=== PATIENT | female | born 1975 | race African-American/Black ===

== ENCOUNTER 2017-02-12 02:57 | Emergency (ER) | payer OTHER ==
[2017-02-12 03:04] VITALS: TEMP 97.4
[2017-02-12] MEDS ORDERED: cloNIDine HCL 0.1 MG TAB PO STA (03:06)
[2017-02-12] MEDS ORDERED: SODIUM CHLORIDE 0.9% 1,000 ML IV STA (03:07)
[2017-02-12] MEDS ORDERED: METOCLOPRAMIDE 5 MG/ML 2 ML VIAL IVP STA (03:07)
[2017-02-12] MEDS ORDERED: KETOROLAC 30 MG/ML 1 ML VIAL IVP STA (03:07)
[2017-02-12] MEDS ORDERED: diphenhydrAMINE 50 MG/ML 1 ML VIAL IVP STA (03:07)
[2017-02-12 03:29] LABS: Basophils % (A) 0 %; CH 29.6; CHCM 33.7; Eosinophils # (A) 0.3 k/uL (0-0.7); Eosinophils % (A) 2 %; HCT 44.4 % (34.0-46.0); HDW 2.42; HGB 14.7 gm/dL (11.4-16.0); Luc # (Auto) 0.22; Luc % (Auto) 2; Lymphocytes # (A) 4.6 k/uL (1.0-4.8); Lymphocytes % (A) 37 %; MCH 29.3 pg (25.0-35.0); MCHC 33.2 g/dL (31.0-37.0); MCV 88.1 fL (80.0-100.0); Mean Platelet Volume 7.6; Monocytes # (A) 0.4 k/uL (0-1.0); Monocytes % (A) 4 %; Neutrophils % (A) 56 %; RBC 5.03 m/uL (3.80-5.40); RDW 13.1 % (11.5-15.5); WBC 12.5 k/uL (3.8-10.6); WBC (Perox) 12.73
[2017-02-12 03:39] LABS: Anion Gap 11 mmol/L; Blood Urea Nitrogen 9 mg/dL (7-17); Calcium 9.3 mg/dL (8.4-10.2); Carbon Dioxide 23 mmol/L (22-30); Chloride 106 mmol/L (98-107); Glucose 96 mg/dL (74-99); Non-African American GFR(MDRD) >60 (>60 ml/min/1.73 sqM); Potassium 3.6 mmol/L (3.5-5.1); Sodium 140 mmol/L (137-145)
--- NOTE | 2017-02-12 03:43 | CT ---
EXAM: CT Head Without Intravenous Contrast CLINICAL HISTORY: Pain TECHNIQUE: Axial computed tomography images of the head/brain without intravenous contrast. CTDI is 60.3 mGy and DLP is 1126.5 mGy-cm. This CT exam was performed using one or more of the following dose reduction techniques: automated exposure control, adjustment of the mA and/or kV according to patient size, and/or use of iterative reconstruction technique. COMPARISON: CT head dated 06/06/2015 FINDINGS: Brain: No evidence of acute infarct, hemorrhage, mass or edema. No significant white matter disease. Ventricles: Unremarkable. Bones/joints: Unremarkable. Soft tissues: Unremarkable. Sinuses: Mild mucosal thickening of the paranasal sinuses. Mastoid air cells: Unremarkable as visualized. No mastoid effusion. IMPRESSION: No acute findings.
--- NOTE | 2017-02-12 03:43 | ED ---
Headache HPI - General Chief Complaint: Headache Stated Complaint: Headache Time Seen by Provider: 02/12/17 03:06 Source: RN notes reviewed, old records reviewed Mode of arrival: ambulatory Limitations: no limitations - History of Present Illness Initial Comments: Is a 41-year-old female presenting to emergency Department chief complaint of a headache. Patient reports that the going on for the past 3-4 hours. She reports she has not taken anything to help. She denies any vomiting but reports she feels nauseated. She states that she is having some blurry vision with this headache. She has emergency department with an elevated blood pressure of 209/112. Patient states that she was diagnosed with high blood pressure but was so she didn't need to take the medications for the past year as her blood pressure has been relatively normal. Patient denies any chest pain , shortness of breath, abdominal pain, dysuria hematuria or changes in bowel movements. Patient reports her headaches a 10 out of 10. Patient reports the headache becomes worse with bright lights or loud noises. - Related Data Previous Rx's Medication Instructions Recorded Lisinopril [Prinivil] 10 mg PO DAILY #10 tablet 02/12/17 Allergies Allergy/AdvReac Type Severity Reaction Status Date / Time No Known Allergies Allergy Verified 12/31/15 10:07 Review of Systems ROS Statement: Those systems with pertinent positive or pertinent negative responses have been documented in the HPI. ROS Other: All systems not noted in ROS Statement are negative. Past Medical History Past Medical History: Asthma, CVA/TIA, Hyperlipidemia, Hypertension Additional Past Medical History / Comment(s): Kidney stones, small stroke 2011, History of Any Multi-Drug Resistant Organisms: MRSA Date of last positivie culture/infection: 12/11/2008 MDRO Source:: Abd wall wound Past Surgical History: Section, Cholecystectomy, Hysterectomy Additional Past Surgical History / Comment(s): Kidney stent 16 yrs ago on left due to kidney stone, incision and drainage of abscess on abdomen on left side MRSA Past Anesthesia/Blood Transfusion Reactions: No Reported Reaction Past Psychological History: Anxiety, Depression Smoking Status: Current some day smoker Past Alcohol Use History: None Reported Past Drug Use History: None Reported - Past Family History Mother Family Medical History: Cancer, COPD, Diabetes Mellitus General Exam - General Exam Comments Initial Comments: This is a ill-appearing 41-year-old female. Limitations: no limitations General appearance: alert, in no apparent distress Head exam: Present: atraumatic, normocephalic, normal inspection Eye exam: Present: normal appearance, PERRL, EOMI. Absent: scleral icterus, conjunctival injection, periorbital swelling ENT exam: Present: normal exam, mucous membranes moist Neck exam: Present: normal inspection. Absent: tenderness, meningismus, lymphadenopathy Respiratory exam: Present: normal lung sounds bilaterally. Absent: respiratory distress, wheezes, rales, rhonchi, stridor Cardiovascular Exam: Present: regular rate, normal rhythm, normal heart sounds. Absent: systolic murmur, diastolic murmur, rubs, gallop, clicks GI/Abdominal exam: Present: soft, normal bowel sounds. Absent: distended, tenderness, guarding, rebound, rigid Extremities exam: Present: normal inspection, full ROM, normal capillary refill. Absent: tenderness, pedal edema, joint swelling, calf tenderness Back exam: Present: normal inspection Neurological exam: Present: alert, oriented X3, CN II-XII intact Expanded Patient oriented to: Present: person, place, time Speech: Present: fluid speech Cranial nerves: EOM's Intact: Normal, Gag Reflex: Normal, Facial Sensation: Normal Cerebellar function: Finger to Nose: Normal Upper motor neuron: Pronator Drift: Normal Sensory exam: Upper Extremity Light Touch: Normal, Lower Extremity Light Touch: Normal Motor strength exam: RUE: 5, LUE: 5, RLE: 5, LLE: 5 Eye Response: (4) open spontaneously Motor Response: (6) obeys commands Verbal Response: (5) oriented Rob Total: 15 Psychiatric exam: Present: normal affect, normal mood Skin exam: Present: warm, dry, intact, normal color. Absent: rash Course Vital Signs 02/12/17 02/12/17 02/12/17 03:01 03:03 04:03 Temperature 97.4 F L Pulse Rate 81 72 Respiratory 18 78 H 20 Rate Blood Pressure 209/112 192/105 177/90 O2 Sat by Pulse 100 99 97 Oximetry 02/12/17 04:29 Temperature Pulse Rate 74 Respiratory 20 Rate Blood Pressure 170/95 O2 Sat by Pulse 97 Oximetry - Reevaluation(s) Reevaluation #1: 02/12/17 04:21 Patient is reevaluated blood pressure 177/90. Patient reports that she feels much better. Her headaches a 5 out of 10. Medical Decision Making - Medical Decision Making Is a 41-year-old female with chief complaint of headache for the past 4 hours. She reports it's a 10 out of 10. She also reports that she has some blurry vision, and states that she sees areas of black in her vision. Patient's blood pressure was elevated upon arriving to emergency department of 202/112. Patient given 2 mg of Catapres. Patient received IV fluids labwork obtained. CT brain also obtained. All lab work was negative. CT was also negative for any acute process. Patient is feeling much better after 2 g of Catapres and the medications. She reports her headaches a 5 out of 10. Patient reports that she previously was on lisinopril. Patient will be discharged with lisinopril 10 mg and advised follow-up as discussed with the primary care provider. Patient advised to take Motrin or Tylenol for further headaches. In again close follow-up with primary care provider. Return parameters were discussed. Discussed this case with Dr. Henderson. - Lab Data Result diagrams: 02/12/17 03:07 02/12/17 03:07 Lab Results 02/12/17 02/12/17 Range/Units 03:07 03:07 WBC 12.5 H (3.8-10.6) k/uL RBC 5.03 (3.80-5.40) m/uL Hgb 14.7 (11.4-16.0) gm/dL Hct 44.4 (34.0-46.0) % MCV 88.1 (80.0-100.0) fL MCH 29.3 (25.0-35.0) pg MCHC 33.2 (31.0-37.0) g/dL RDW 13.1 (11.5-15.5) % Plt Count 218 (150-450) k/uL Neutrophils % 56 % Lymphocytes % 37 % Monocytes % 4 % Eosinophils % 2 % Basophils % 0 % Neutrophils # 7.0 (1.3-7.7) k/uL Lymphocytes # 4.6 (1.0-4.8) k/uL Monocytes # 0.4 (0-1.0) k/uL Eosinophils # 0.3 (0-0.7) k/uL Basophils # 0.0 (0-0.2) k/uL Sodium 140 (137-145) mmol/L Potassium 3.6 (3.5-5.1) mmol/L Chloride 106 (98-107) mmol/L Carbon Dioxide 23 (22-30) mmol/L Anion Gap 11 mmol/L BUN 9 (7-17) mg/dL Creatinine 0.80 (0.52-1.04) mg/dL Est GFR (MDRD) Af Amer >60 (>60 ml/min/1.73 sqM) Est GFR (MDRD) Non-Af >60 (>60 ml/min/1.73 sqM) Glucose 96 (74-99) mg/dL Calcium 9.3 (8.4-10.2) mg/dL - Radiology Data Radiology results: report reviewed Age is no evidence of acute infarct, hemorrhage or mass or edema. No significant white matter disease. Mild mucosal thickening appear in nasal sinuses. Mastoid air shows are unremarkable as this was. No mastoid effusion. Disposition Clinical Impression: Migraine, Hypertension Disposition: HOME SELF-CARE Condition: Good Instructions: Acute Headache (ED), Hypertension (ED) Additional Instructions: Patient advised to rest, increase fluids. Continue taking Motrin or Tylenol for headache. Patient denies a take blood pressure medication as prescribed and follow-up as soon as possible with a primary care provider. Return to emergency department if any alarming signs or symptoms occur. Prescriptions: Lisinopril [Prinivil] 10 mg PO DAILY #10 tablet Referrals: Rashawn Monte MD [Primary Care Provider] - 1-2 days Time of Disposition: 04:22
[2017-02-12] MEDS ORDERED: SODIUM CHLORIDE 0.9% 1,000 ML IV SCH (04:15)
[2017-02-12 04:16] VITALS: RESP 20
[2017-02-12] MEDS ORDERED: ACETAMINOPHEN TAB 500 MG TAB PO STA (04:25)
[2017-02-12 04:30] VITALS: BP 170/95; PULSE 74
== END 2017-02-12 04:39 | disposition home or self-care (01) ==
LOC: EC 02:57
DX: G43.909 Migraine, unspecified, not intractable, without status migrainosus (principal); I10 Essential (primary) hypertension; J34.89 Other specified disorders of nose and nasal sinuses; F17.200 Nicotine dependence, unspecified, uncomplicated
CPT/HCPCS: 36415; 80048; 85025; 70450; 99284; 96374; 96375 ×2; 96361; J1200; J2765; J1885

== ENCOUNTER → 2017-05-29 | Outpatient (CLI) | payer OTHER ==
--- NOTE | 2017-05-29 12:54 | FL ---
EXAMINATION TYPE: FL UGI air w esophagus DATE OF EXAM: 05/29/2017 COMPARISON: CT abdomen pelvis December 30, 2015. HISTORY: Sharp abdominal pain over last 3 months. TECHNIQUE: A double contrast UGI study is attempted. A total of 36 seconds of fluoroscopic time was utilized during procedure. 28 spot images are saved during procedure. FINDINGS: Operator Receptionist image of the abdomen shows overall nonobstructive bowel gas pattern. Cholecystectomy clips are redemonstrated. Exam is noted suboptimal as patient had vomiting and retching during study making stomach distention suboptimal. The esophagus shows satisfactory motility and emptying into the stomach. A small sliding-type hiatal hernia is seen. No worrisome intraluminal mass or stricture is noted. The stomach shows suboptimal distention due to vomiting. No titus ulcer disease is seen. Single episo de of gastroesophageal reflux was visualized during real-time performance of study. The duodenal bulb, sweep, and proximal small bowel loops are unremarkable on delayed radiographs. IMPRESSION: Small sliding-type hiatal hernia with single episode of gastroesophageal reflux visualize d.
== END | disposition home or self-care (01) ==
LOC: RADFLMAIN 11:53
PROVIDERS: ATTEND Family Medicine
DX: K44.9 Diaphragmatic hernia without obstruction or gangrene (principal); K21.9 Gastro-esophageal reflux disease without esophagitis
CPT/HCPCS: 74246

== ENCOUNTER 2017-06-02 18:46 | Emergency (ER) | payer OTHER ==
[2017-06-02] MEDS ORDERED: ONDANSETRON 4 MG/2 ML VIAL IVP STA ×2 (20:34→21:55)
[2017-06-02] MEDS ORDERED: SODIUM CHLORIDE 0.9% 2,000 ML IV STA (20:34)
[2017-06-02] MEDS ORDERED: SODIUM CHLORIDE 0.9% 1,000 ML IV STA (20:34)
[2017-06-02] MEDS ORDERED: KETOROLAC 30 MG/ML 1 ML VIAL IVP STA (20:34)
--- NOTE | 2017-06-02 20:45 | ED ---
Nausea/Vomiting/Diarrhea HPI - General Chief complaint: Nausea/Vomiting/Diarrhea Stated complaint: Nausea/Numbness/Nerve Pain Time Seen by Provider: 06/02/17 20:20 Source: patient, RN notes reviewed Mode of arrival: ambulatory Limitations: no limitations - History of Present Illness Initial comments: This is a 42-year-old female who states she had the onset of nausea vomiting this morning at about 7 AM. She's had persistent nausea vomiting throughout the day also complains of lightheadedness dizziness she also has some pain to the right side of her neck rate down to the right low back area. She states she has chronic pain medicines worse today she also some tingling to her left arm later today. She states the discomfort to her neck is better than it was earlier today sharp in nature and increases with movement. Not affected by deep breathing. She had no cough or phlegm production no dysuria hematuria no diarrhea. Again she does admit to decreased oral intake today also MD complaint: nausea, vomiting - Related Data Home Medications Medication Instructions Recorded Confirmed Albuterol Inhaler [Ventolin Hfa 1 - 2 puff INHALATION RT-Q6H PRN 06/02/17 Inhaler] Aspirin 325 mg PO DAILY 06/02/17 06/02/17 Hydrochlorothiazide [Hydrodiuril] 25 mg PO DAILY 06/02/17 06/02/17 Lisinopril [Prinivil] 10 mg PO BID 06/02/17 06/02/17 Nicotine 21Mg/24Hr Patch [Habitrol 1 patch TRANSDERM DAILY 06/02/17 06/02/17 21Mg/24Hr Patch] Previous Rx's Medication Instructions Recorded Ibuprofen 800 mg PO Q6HR PRN #20 tablet 06/02/17 Ondansetron Odt [Zofran Odt] 4 mg PO Q8HR PRN #9 tab 06/02/17 Allergies Allergy/AdvReac Type Severity Reaction Status Date / Time No Known Allergies Allergy Verified 06/02/17 19:59 Review of Systems ROS Statement: Those systems with pertinent positive or pertinent negative responses have been documented in the HPI. ROS Other: All systems not noted in ROS Statement are negative. Past Medical History Past Medical History: Asthma, CVA/TIA, Hyperlipidemia, Hypertension Additional Past Medical History / Comment(s): Kidney stones, small stroke 2011, History of Any Multi-Drug Resistant Organisms: MRSA Date of last positivie culture/infection: 12/11/2008 MDRO Source:: Abd wall wound Past Surgical History: Section, Cholecystectomy, Hysterectomy Additional Past Surgical History / Comment(s): Kidney stent 16 yrs ago on left due to kidney stone, incision and drainage of abscess on abdomen on left side MRSA Past Anesthesia/Blood Transfusion Reactions: No Reported Reaction Past Psychological History: Anxiety, Depression Smoking Status: Current some day smoker Past Alcohol Use History: None Reported Past Drug Use History: None Reported - Past Family History Mother Family Medical History: Cancer, COPD, Diabetes Mellitus General Exam - General Exam Comments Initial Comments: This is a well-developed well-nourished awake alert oriented 3 female Limitations: no limitations General appearance: alert, anxious, in distress Head exam: Present: atraumatic, normocephalic, normal inspection Eye exam: Present: normal appearance, PERRL, EOMI. Absent: scleral icterus, conjunctival injection, periorbital swelling ENT exam: Present: mucous membranes dry Neck exam: Present: normal inspection, tenderness (Tenderness to palpation of the right lateral neck musculature and trapezius muscle. This does reproduce the pain. No midline tenderness.). Absent: meningismus, lymphadenopathy Respiratory exam: Present: normal lung sounds bilaterally. Absent: respiratory distress, wheezes, rales, rhonchi, stridor Cardiovascular Exam: Present: regular rate, normal rhythm, normal heart sounds. Absent: systolic murmur, diastolic murmur, rubs, gallop, clicks GI/Abdominal exam: Present: soft, normal bowel sounds. Absent: distended, tenderness, guarding, rebound, rigid, bruit, pulsatile mass, hernia Extremities exam: Present: normal inspection, full ROM, normal capillary refill. Absent: tenderness, pedal edema, joint swelling, calf tenderness Back exam: Present: normal inspection Neurological exam: Present: alert, oriented X3, CN II-XII intact Psychiatric exam: Present: normal affect, normal mood Skin exam: Present: warm, dry, intact, normal color. Absent: rash Course Vital Signs 06/02/17 06/02/17 19:07 22:08 Temperature 98.5 F Pulse Rate 82 85 Respiratory 20 18 Rate Blood Pressure 108/56 112/56 O2 Sat by Pulse 98 97 Oximetry Medical Decision Making - Medical Decision Making The patient initially still had nausea with vomiting and pain she was given more pain medication as well as antiemetics or IV fluids she did respond and felt much improved. She will be discharged. She is follow-up with Dr. singh when necessary did write a note for her for work tomorrow - Lab Data Result diagrams: 06/02/17 20:45 06/02/17 20:45 Lab Results 06/02/17 06/02/17 06/02/17 Range/Units 20:45 20:45 20:45 WBC 13.6 H (3.8-10.6) k/uL RBC 4.52 (3.80-5.40) m/uL Hgb 14.0 (11.4-16.0) gm/dL Hct 41.3 (34.0-46.0) % MCV 91.3 (80.0-100.0) fL MCH 30.9 (25.0-35.0) pg MCHC 33.9 (31.0-37.0) g/dL RDW 15.1 (11.5-15.5) % Plt Count 269 (150-450) k/uL Neutrophils % 57 % Lymphocytes % 35 % Monocytes % 4 % Eosinophils % 2 % Basophils % 1 % Neutrophils # 7.7 (1.3-7.7) k/uL Lymphocytes # 4.8 (1.0-4.8) k/uL Monocytes # 0.6 (0-1.0) k/uL Eosinophils # 0.2 (0-0.7) k/uL Basophils # 0.1 (0-0.2) k/uL Sodium 135 L (137-145) mmol/L Potassium 4.3 (3.5-5.1) mmol/L Chloride 100 (98-107) mmol/L Carbon Dioxide 21 L (22-30) mmol/L Anion Gap 14 mmol/L BUN 19 H (7-17) mg/dL Creatinine 1.68 H (0.52-1.04) mg/dL Est GFR (MDRD) Af Amer 40 (>60 ml/min/1.73 sqM) Est GFR (MDRD) Non-Af 33 (>60 ml/min/1.73 sqM) Glucose 106 H (74-99) mg/dL Calcium 9.8 (8.4-10.2) mg/dL Total Bilirubin 0.8 (0.2-1.3) mg/dL AST 32 (14-36) U/L ALT 31 (9-52) U/L Alkaline Phosphatase 69 (38-126) U/L Total Creatine Kinase 110 (30-135) U/L CK-MB (CK-2) 0.8 (0.0-2.4) ng/mL CK-MB (CK-2) Rel Index 0.7 Troponin I <0.012 (0.000-0.034) ng/mL Total Protein 7.7 (6.3-8.2) g/dL Albumin 4.6 (3.5-5.0) g/dL Amylase 38 (30-110) U/L Lipase 147 (23-300) U/L Urine Color Urine Appearance (Clear) Urine pH (5.0-8.0) Ur Specific [place] (1.001-1.035) Urine Protein (Negative) Urine Glucose (UA) (Negative) Urine Ketones (Negative) Urine Blood (Negative) Urine Nitrite (Negative) Urine Bilirubin (Negative) Urine Urobilinogen (<2.0) mg/dL Ur Leukocyte Esterase (Negative) Urine RBC (0-5) /hpf Urine WBC (0-5) /hpf Ur Squamous Epith Cells (0-4) /hpf Urine Bacteria (None) /hpf 06/02/17 Range/Units 20:45 WBC (3.8-10.6) k/uL RBC (3.80-5.40) m/uL Hgb (11.4-16.0) gm/dL Hct (34.0-46.0) % MCV (80.0-100.0) fL MCH (25.0-35.0) pg MCHC (31.0-37.0) g/dL RDW (11.5-15.5) % Plt Count (150-450) k/uL Neutrophils % % Lymphocytes % % Monocytes % % Eosinophils % % Basophils % % Neutrophils # (1.3-7.7) k/uL Lymphocytes # (1.0-4.8) k/uL Monocytes # (0-1.0) k/uL Eosinophils # (0-0.7) k/uL Basophils # (0-0.2) k/uL Sodium (137-145) mmol/L Potassium (3.5-5.1) mmol/L Chloride (98-107) mmol/L Carbon Dioxide (22-30) mmol/L Anion Gap mmol/L BUN (7-17) mg/dL Creatinine (0.52-1.04) mg/dL Est GFR (MDRD) Af Amer (>60 ml/min/1.73 sqM) Est GFR (MDRD) Non-Af (>60 ml/min/1.73 sqM) Glucose (74-99) mg/dL Calcium (8.4-10.2) mg/dL Total Bilirubin (0.2-1.3) mg/dL AST (14-36) U/L ALT (9-52) U/L Alkaline Phosphatase (38-126) U/L Total Creatine Kinase (30-135) U/L CK-MB (CK-2) (0.0-2.4) ng/mL CK-MB (CK-2) Rel Index Troponin I (0.000-0.034) ng/mL Total Protein (6.3-8.2) g/dL Albumin (3.5-5.0) g/dL Amylase (30-110) U/L Lipase (23-300) U/L Urine Color Light Yellow Urine Appearance Clear (Clear) Urine pH 5.5 (5.0-8.0) Ur Specific [place] 1.004 (1.001-1.035) Urine Protein Negative (Negative) Urine Glucose (UA) Negative (Negative) Urine Ketones Negative (Negative) Urine Blood Negative (Negative) Urine Nitrite Negative (Negative) Urine Bilirubin Negative (Negative) Urine Urobilinogen <2.0 (<2.0) mg/dL Ur Leukocyte Esterase Small H (Negative) Urine RBC <1 (0-5) /hpf Urine WBC 4 (0-5) /hpf Ur Squamous Epith Cells 3 (0-4) /hpf Urine Bacteria Rare H (None) /hpf - Radiology Data Radiology results: report reviewed (I did review the imaging and reports no acute findings.), image reviewed Disposition Clinical Impression: Acute gastritis, Dehydration, Neck pain Disposition: HOME SELF-CARE Condition: Good Instructions: Acute Nausea and Vomiting (ED), Dehydration (ED) Prescriptions: Ibuprofen 800 mg PO Q6HR PRN #20 tablet PRN Reason: Pain Ondansetron Odt [Zofran Odt] 4 mg PO Q8HR PRN #9 tab PRN Reason: Nausea Referrals: Irvin Haile MD [Primary Care Provider] - 1-2 days
[2017-06-02 20:59] LABS: Basophils # (A) 0.1 k/uL (0-0.2); Basophils % (A) 1 %; CH 30.9; CHCM 34.1; Eosinophils # (A) 0.2 k/uL (0-0.7); Eosinophils % (A) 2 %; HCT 41.3 % (34.0-46.0); HDW 2.61; Luc # (Auto) 0.22; Luc % (Auto) 2; Lymphocytes # (A) 4.8 k/uL (1.0-4.8); Lymphocytes % (A) 35 %; MCH 30.9 pg (25.0-35.0); MCHC 33.9 g/dL (31.0-37.0); MCV 91.3 fL (80.0-100.0); Mean Platelet Volume 8.5; Monocytes # (A) 0.6 k/uL (0-1.0); Monocytes % (A) 4 %; Neutrophils # (A) 7.7 k/uL (1.3-7.7); Neutrophils % (A) 57 %; RBC 4.52 m/uL (3.80-5.40); RDW 15.1 % (11.5-15.5); WBC 13.6 k/uL (3.8-10.6); WBC (Perox) 14.13
[2017-06-02 21:02] LABS: Appearance,Urine Clear (Clear); Bacteria,Urine Rare /hpf; Bilirubin,Urine Negative (Negative); Glucose,Urine (UA) Negative (Negative); Ketones,Urine Negative (Negative); Leukocyte Esterase,Urine Small (Negative); Nitrite,Urine Negative (Negative); PH, Urine 5.5 (5.0-8.0); Particle Count 2740; Protein,Urine Negative (Negative); RBC,Urine <1 /hpf (0-5); Specific Gravity,Urine 1.004 (1.001-1.035); Squamous Epithelial Cell,Urine 3 /hpf (0-4); UA Billing (MACRO vs. MICRO) MICRO; Urobilinogen,Urine <2.0 mg/dL (<2.0); WBC,Urine 4 /hpf (0-5)
[2017-06-02 21:18] LABS: Calcium 9.8 mg/dL (8.4-10.2); Potassium 4.3 mmol/L (3.5-5.1); Total Bilirubin 0.8 mg/dL (0.2-1.3); Total Protein 7.7 g/dL (6.3-8.2)
--- NOTE | 2017-06-02 21:19 | XR ---
EXAMINATION TYPE: XR chest 2V DATE OF EXAM: 06/02/2017 COMPARISON: 12/30/2015 HISTORY: Abdominal pain TECHNIQUE: Frontal and lateral views of the chest are obtained. FINDINGS: Heart and mediastinum are normal. Lungs are clear. Diaphragm is normal. Bony thorax is int act. IMPRESSION: Normal chest. There is clearing of the minimal atelectasis at the left lung base compare d to old exam.
--- NOTE | 2017-06-02 21:20 | XR ---
EXAMINATION TYPE: XR KUB DATE OF EXAM: 06/02/2017 COMPARISON: 12/19/2014 HISTORY: Abdominal pain TECHNIQUE: 2 views FINDINGS: There is no sign of intestinal obstruction or pneumoperitoneum. Fecal pattern is normal. Th ere are clips from cholecystectomy. Lung bases are clear. There is no sign of a mass. IMPRESSION: Nonacute abdomen. No change.
[2017-06-02 21:22] LABS: Creatine Kinase 110 U/L (30-135)
[2017-06-02 21:34] LABS: Creatine Kinase MB 0.8 ng/mL (0.0-2.4); Troponin I <0.012 ng/mL (0.000-0.034)
[2017-06-02] MEDS ORDERED: HYDROmorphone 1 MG/ML 1 ML SYRINGE IVP STA (21:56)
[2017-06-02 22:11] VITALS: RESP 18
[2017-06-02 23:06] VITALS: BP 128/69; PULSE 74; TEMP 98.7
== END 2017-06-02 23:05 | disposition home or self-care (01) ==
LOC: EC 18:46
DX: K29.00 Acute gastritis without bleeding (principal); E86.0 Dehydration; M54.2 Cervicalgia; R42 Dizziness and giddiness; I10 Essential (primary) hypertension; F17.200 Nicotine dependence, unspecified, uncomplicated; Z86.14 Personal history of Methicillin resistant Staphylococcus aureus infection; Z86.73 Personal history of transient ischemic attack (TIA), and cerebral infarction without residual deficits; Z90.49 Acquired absence of other specified parts of digestive tract; Z79.82 Long term (current) use of aspirin; Z79.899 Other long term (current) drug therapy
CPT/HCPCS: 99284; 96374; 96375 ×2; 96376; 96361 ×2; 36415; 80053; 82150; 82550; 82553; 83690; 84484; 85025; 81001; 71020; 74000; J2405; J1885; J1170

== ENCOUNTER 2017-07-09 21:34 | Emergency (ER) | payer SELFPAY ==
[2017-07-09 21:39] VITALS: BP 153/97; PULSE 82; RESP 16; TEMP 99.4
--- NOTE | 2017-07-09 21:58 | ED ---
General Adult HPI - General Chief complaint: Extremity Injury, Upper Stated complaint: Hand Injury Time Seen by Provider: 07/09/17 21:45 Source: patient, RN notes reviewed Mode of arrival: ambulatory Limitations: no limitations - History of Present Illness Initial comments: Patient is a 42-year-old female who presents emergency room today with chief complaint of an injury to the right hand that occurred approximately 6 days ago. She does admit that she was running when she lost her balance falling into a fence injuring her right hand. She does admit to pain over the fourth and fifth metacarpals down into the MCP joint area. Patient does admit to feeling a bandlike sensation when she makes a fist. She denies any other complaints or associated symptoms. Patient denies any recent fever, chills, shortness of breath, chest pain, back pain, abdominal pain, nausea or vomiting, numbness or tingling, dysuria or hematuria, constipation or diarrhea, headaches or visual changes, or any other complaints. - Related Data Previous Rx's Medication Instructions Recorded Ibuprofen 800 mg PO Q6HR PRN #20 tablet 06/02/17 Ibuprofen [Motrin] 600 mg PO Q6HR PRN #30 day 07/09/17 Allergies Allergy/AdvReac Type Severity Reaction Status Date / Time No Known Allergies Allergy Verified 07/09/17 21:41 Review of Systems ROS Statement: Those systems with pertinent positive or pertinent negative responses have been documented in the HPI. ROS Other: All systems not noted in ROS Statement are negative. Past Medical History Past Medical History: Asthma, CVA/TIA, Hyperlipidemia, Hypertension Additional Past Medical History / Comment(s): Kidney stones, small stroke 2011, History of Any Multi-Drug Resistant Organisms: MRSA Date of last positivie culture/infection: 12/11/2008 MDRO Source:: Abd wall wound Past Surgical History: Section, Cholecystectomy, Hysterectomy Additional Past Surgical History / Comment(s): Kidney stent 16 yrs ago on left due to kidney stone, incision and drainage of abscess on abdomen on left side MRSA Past Anesthesia/Blood Transfusion Reactions: No Reported Reaction Past Psychological History: Anxiety, Depression Smoking Status: Current some day smoker Past Alcohol Use History: None Reported Past Drug Use History: None Reported - Past Family History Mother Family Medical History: Cancer, COPD, Diabetes Mellitus General Exam - General Exam Comments Initial Comments: General: The patient is awake and alert, in no distress, and does not appear acutely ill. Neck: The neck is supple, there is no tenderness or JVD. Cardiovascular: There is a regular rate and rhythm. No murmur, rub or gallop is appreciated. Respiratory: Lungs are clear to auscultation, respirations are non-labored, breath sounds are equal. No wheezes, stridor, rales, or rhonchi. Musculoskeletal: Patient does have normal appearance of the right hand obvious deformity. Her sensations are intact pulses equal bilaterally 2+. Cap refill less than 2 seconds. Patient shows full range of motion all areas were strength 5/5. Does have tenderness over the fourth and fifth metacarpals down at the MCP and proximal fourth and fifth digits. Neurological: A&O x 3. CN II-XII intact, There are no obvious motor or sensory deficits. Coordination appears grossly intact. Speech is normal. Skin: Skin is warm and dry and no rashes or lesions are noted. Psychiatric: Normal mood and affect. Limitations: no limitations Course Vital Signs 07/09/17 21:36 Temperature 99.4 F Pulse Rate 82 Respiratory 16 Rate Blood Pressure 153/97 O2 Sat by Pulse 100 Oximetry Medical Decision Making - Medical Decision Making X-ray reviewed negative for any acute fracture dislocation. Results were discussed with patient. Patient. Follow-up orthopedics if symptoms persist over the next 3-5 days. Advised continued ice elevate the affected area and use ibuprofen for pain. Disposition Clinical Impression: Contusion of right hand Disposition: HOME SELF-CARE Condition: Good Instructions: Contusion in Adults (ED) Additional Instructions: Please continue to ice elevate the affected area and use ibuprofen for pain. Please follow-up with orthopedics in 3-5 days of symptoms are not improving. Please return to emergency room for new concerns. Prescriptions: Ibuprofen [Motrin] 600 mg PO Q6HR PRN #30 day PRN Reason: Pain Referrals: Irvin Haile MD [Primary Care Provider] - 1-2 days Neftaly Ibanez MD [Medical Doctor] - 1-2 days Time of Disposition: 22:23
--- NOTE | 2017-07-09 22:16 | XR ---
EXAMINATION TYPE: XR hand complete RT DATE OF EXAM: 07/09/2017 COMPARISON: NONE HISTORY: Pain TECHNIQUE: 3 views FINDINGS: I see no fracture nor dislocation. Metacarpals appear intact. Joint spaces appear normal. IMPRESSION: Negative right hand exam
== END 2017-07-09 22:28 | disposition home or self-care (01) ==
LOC: EC 21:34
DX: S60.221A Contusion of right hand, initial encounter (principal); F17.200 Nicotine dependence, unspecified, uncomplicated; Z86.14 Personal history of Methicillin resistant Staphylococcus aureus infection; W19.XXXA Unspecified fall, initial encounter; Y93.02 Activity, running
CPT/HCPCS: 99283

== ENCOUNTER 2017-10-19 23:48 | Emergency (ER) | payer OTHER ==
[2017-10-19 23:54] VITALS: TEMP 98.4
--- NOTE | 2017-10-20 00:34 | ED ---
Chest Pain HPI - General Chief Complaint: Chest Pain Stated Complaint: Chest Tightness Time Seen by Provider: 10/19/17 23:55 Source: patient Mode of arrival: ambulatory Limitations: no limitations - History of Present Illness MD Complaint: chest pain Onset/Timin -: days(s) Pain Location: substernal, left chest, right chest Pain Radiation: none Quality: tightness Consistency: constant Improves With: nothing Worsens With: nothing Other Symptoms: cough - Related Data Previous Rx's Medication Instructions Recorded Ibuprofen 800 mg PO Q6HR PRN #20 tablet 06/02/17 Ibuprofen [Motrin] 600 mg PO Q6HR PRN #30 day 07/09/17 Albuterol Inhaler [Ventolin Hfa 1 - 2 puff INHALATION Q6HR PRN #1 10/20/17 Inhaler] inhaler Lisinopril [Zestril] 5 mg PO DAILY #15 tab 10/20/17 predniSONE 20 mg PO BID #8 tab 10/20/17 Allergies Allergy/AdvReac Type Severity Reaction Status Date / Time No Known Allergies Allergy Verified 10/19/17 23:54 Review of Systems ROS Statement: Those systems with pertinent positive or pertinent negative responses have been documented in the HPI. ROS Other: All systems not noted in ROS Statement are negative. Constitutional: Denies: fever, chills Respiratory: Reports: dyspnea. Denies: cough Cardiovascular: Reports: chest pain Gastrointestinal: Denies: abdominal pain, nausea, vomiting Genitourinary: Denies: dysuria, hematuria Musculoskeletal: Denies: back pain Skin: Denies: rash Neurological: Denies: headache EKG Findings - EKG Results: EKG: interpreted by ERMD, sinus rhythm (Rate approximately 84 bpm), normal axis , normal ST/T - Blocks, Marble, Hypertrophy, ST Abn: Chamber hypertrophy or enlargement: left ventricular hypertrophy or enlargement (LVE) Repolarization changes or abnormalities: Q-T interval prolongation Past Medical History Past Medical History: Asthma, CVA/TIA, Hyperlipidemia, Hypertension Additional Past Medical History / Comment(s): Kidney stones, small stroke 2011, History of Any Multi-Drug Resistant Organisms: MRSA Date of last positivie culture/infection: 12/11/2008 MDRO Source:: Abd wall wound Past Surgical History: Section, Cholecystectomy, Hysterectomy Additional Past Surgical History / Comment(s): Kidney stent 16 yrs ago on left due to kidney stone, incision and drainage of abscess on abdomen on left side MRSA Past Anesthesia/Blood Transfusion Reactions: No Reported Reaction Past Psychological History: Anxiety, Depression Smoking Status: Current some day smoker Past Alcohol Use History: None Reported Past Drug Use History: None Reported - Past Family History Mother Family Medical History: Cancer, COPD, Diabetes Mellitus General Exam Limitations: no limitations General appearance: alert, in no apparent distress Head exam: Present: atraumatic, normocephalic Eye exam: Present: normal appearance. Absent: scleral icterus, conjunctival injection ENT exam: Present: normal oropharynx Neck exam: Present: normal inspection Respiratory exam: Present: wheezes. Absent: respiratory distress, rales, rhonchi, stridor, accessory muscle use, decreased breath sounds Cardiovascular Exam: Present: regular rate, normal rhythm, normal heart sounds. Absent: systolic murmur, diastolic murmur, rubs, gallop GI/Abdominal exam: Present: soft. Absent: distended, tenderness, guarding, rebound Extremities exam: Present: normal inspection, normal capillary refill. Absent: pedal edema, calf tenderness Back exam: Present: normal inspection. Absent: CVA tenderness (R), CVA tenderness (L) Neurological exam: Present: alert Skin exam: Present: warm, dry, intact, normal color. Absent: rash Course Vital Signs 10/19/17 10/20/17 10/20/17 23:50 01:47 01:56 Temperature 98.4 F Pulse Rate 78 77 69 Respiratory 18 18 Rate Blood Pressure 206/104 166/88 O2 Sat by Pulse 100 98 Oximetry 10/20/17 10/20/17 02:05 02:51 Temperature Pulse Rate 69 88 Respiratory 17 Rate Blood Pressure 148/77 O2 Sat by Pulse 98 Oximetry Disposition Clinical Impression: Hypertension, Bronchitis Disposition: HOME SELF-CARE Condition: Good Instructions: Acute Bronchitis (ED), Hypertension (ED) Prescriptions: Albuterol Inhaler [Ventolin Hfa Inhaler] 1 - 2 puff INHALATION Q6HR PRN #1 inhaler PRN Reason: Wheezing Lisinopril [Zestril] 5 mg PO DAILY #15 tab predniSONE 20 mg PO BID #8 tab Referrals: Irvin Haile MD [Primary Care Provider] - 1-2 days
[2017-10-20 00:50] LABS: Basophils # (A) 0.1 k/uL (0-0.2); Basophils % (A) 0 %; Eosinophils # (A) 0.2 k/uL (0-0.7); Eosinophils % (A) 1 %; HCT 40.9 % (34.0-46.0); HGB 13.2 gm/dL (11.4-16.0); Lymphocytes # (A) 4.5 k/uL (1.0-4.8); Lymphocytes % (A) 38 %; MCH 29.1 pg (25.0-35.0); MCHC 32.4 g/dL (31.0-37.0); Mean Platelet Volume 8.2; Monocytes # (A) 0.4 k/uL (0-1.0); Monocytes % (A) 4 %; Neutrophils # (A) 6.6 k/uL (1.3-7.7); Neutrophils % (A) 55 %; Platelet Count 208 k/uL (150-450); RBC 4.54 m/uL (3.80-5.40); RDW 14.8 % (11.5-15.5); WBC 11.9 k/uL (3.8-10.6)
[2017-10-20 01:05] LABS: ALT 31 U/L (9-52); AST 20 U/L (14-36); Albumin 4.2 g/dL (3.5-5.0); Alkaline Phosphatase 82 U/L (38-126); Anion Gap 11 mmol/L; Blood Urea Nitrogen 20 mg/dL (7-17); Calcium 9.5 mg/dL (8.4-10.2); Carbon Dioxide 24 mmol/L (22-30); Chloride 105 mmol/L (98-107); Glucose 118 mg/dL (74-99); Potassium 3.6 mmol/L (3.5-5.1); Sodium 140 mmol/L (137-145); Total Bilirubin 0.2 mg/dL (0.2-1.3)
--- NOTE | 2017-10-20 01:05 | XR ---
EXAMINATION TYPE: XR chest 2V DATE OF EXAM: 10/20/2017 COMPARISON: 06/02/2017 HISTORY: Chest tightness. Chest pain TECHNIQUE: Frontal and lateral views of the chest are obtained. FINDINGS: Heart and mediastinum are normal. Lungs are clear. Costophrenic angles are clear. There ar e no hilar masses. There are chest leads. Bony thorax is intact. IMPRESSION: Normal chest. No change.
[2017-10-20 01:26] LABS: D-Dimer 0.45 mg/L FEU (<0.60); Partial Thromboplastin Time 24.6 sec (22.0-30.0); Prothrombin Time 9.8 sec (9.0-12.0)
[2017-10-20 01:39] LABS: Creatine Kinase MB 1.1 ng/mL (0.0-2.4); Troponin I 0.016 ng/mL (0.000-0.034)
[2017-10-20] MEDS ORDERED: IPRATROPIUM-ALBUTEROL 3 ML NEB INHALATION STA (01:44)
[2017-10-20] MEDS ORDERED: predniSONE 20 MG TAB PO STA (02:28)
[2017-10-20 02:52] VITALS: BP 148/77; PULSE 88; RESP 17
== END 2017-10-20 02:56 | disposition home or self-care (01) ==
LOC: EC 23:48
DX: J40 Bronchitis, not specified as acute or chronic (principal); I10 Essential (primary) hypertension; F17.200 Nicotine dependence, unspecified, uncomplicated; Z86.73 Personal history of transient ischemic attack (TIA), and cerebral infarction without residual deficits; Z86.14 Personal history of Methicillin resistant Staphylococcus aureus infection
CPT/HCPCS: 99285; 36415; 94640; 93005; 85379; 83880; 80053; 82550; 82553; 83735; 84484; 85025; 85610; 85730; 71046; J7512

== ENCOUNTER 2018-07-30 14:57 | Observation (INO) | payer OTHER ==
[2018-07-30 20:13] VITALS: BMI 35.0
[2018-07-30] MEDS: MORPHINE SULFATE 4 MG/ML SYRINGE IVP PRN (21:30)
[2018-07-30] MEDS: PANTOPRAZOLE 40 MG TABLET PO SCH (23:00)
[2018-07-30] MEDS: METOPROLOL TARTRATE 50 MG TAB PO SCH (23:00)
[2018-07-30] MEDS: SODIUM CHLORIDE 0.9% 1,000 ML IV SCH (23:01)
[2018-07-30] MEDS: HEPARIN SODIUM,PORCINE 5,000 UNIT/ML 1 ML VIAL SQ SCH (23:58)
[2018-07-31] MEDS: MORPHINE SULFATE 4 MG/ML SYRINGE IVP PRN ×2 (02:14→06:13)
[2018-07-31] MEDS: PANTOPRAZOLE 40 MG TABLET PO SCH ×2 (06:13→15:49)
[2018-07-31] MEDS: SODIUM CHLORIDE 0.9% 1,000 ML IV SCH ×2 (06:13→15:53)
[2018-07-31 06:52] LABS: Basophils % (A) 0 %; Eosinophils # (A) 0.1 k/uL (0-0.7); Eosinophils % (A) 2 %; HCT 35.8 % (34.0-46.0); HGB 11.7 gm/dL (11.4-16.0); Lymphocytes # (A) 2.8 k/uL (1.0-4.8); Lymphocytes % (A) 42 %; MCH 30.2 pg (25.0-35.0); MCHC 32.7 g/dL (31.0-37.0); MCV 92.5 fL (80.0-100.0); Mean Platelet Volume 7.5; Monocytes # (A) 0.3 k/uL (0-1.0); Monocytes % (A) 4 %; Neutrophils # (A) 3.3 k/uL (1.3-7.7); Neutrophils % (A) 50 %; Platelet Count 173 k/uL (150-450); RBC 3.87 m/uL (3.80-5.40); RDW 13.6 % (11.5-15.5); WBC 6.7 k/uL (3.8-10.6)
[2018-07-31 07:01] LABS: Anion Gap 5 mmol/L; Blood Urea Nitrogen 11 mg/dL (7-17); Calcium 7.7 mg/dL (8.4-10.2); Carbon Dioxide 20 mmol/L (22-30); Chloride 112 mmol/L (98-107); Cholesterol 269 mg/dL (<200); Glucose 126 mg/dL (74-99); HDL Cholesterol 52 mg/dL (40-60); Magnesium 1.7 mg/dL (1.6-2.3); Potassium 3.8 mmol/L (3.5-5.1); Sodium 137 mmol/L (137-145)
[2018-07-31 07:11] LABS: Triglycerides 1150 mg/dL (<150)
[2018-07-31] MEDS: HEPARIN SODIUM,PORCINE 5,000 UNIT/ML 1 ML VIAL SQ SCH ×3 (09:35→23:13)
[2018-07-31] MEDS ORDERED: FUROSEMIDE 40 MG TAB PO STA (09:35)
[2018-07-31] MEDS: METOPROLOL TARTRATE 50 MG TAB PO SCH ×2 (09:36→20:27)
--- NOTE | 2018-07-31 09:38 | P.HPIM ---
History of Present Illness This is a pleasant 43 years old female with past medical history of asthma, TIA , hyperlipidemia, hypertension, left kidney stone, Herniated disc, cigarette smoker. She presents to [facility] because of chest pain or dyspnea of one-day duration. Patient was at the supermarket was touch having some difficulty breathing associated with chest pain central nonradiating about 10/ 10 in severity stated by the patient feels like sharp but not increased by coughing or deep inspiration. Associated with chest wall tenderness and associated with pain and tenderness on both shoulder girdles ,more of the right side of the left. Patient states that she has history of chronic disc herniations by MRI done by her doctor including the neck and lower back. However patient complaining of from numbness in her right upper extremity with headache and some visual changes, she denies diplopia. Patient is currently smoker about 1 pack which last her 3 days, she's been using Chantix for that for about a month now. She complained from the cuff with very scant phlegm. Patient also has leg swelling on both sides right more than left. She has no menstrual cycle over the last few years. I offered to check test however patient declined. Patient has history of hysterectomy. Also she states that years ago she was in the ICU for mini stroke at that time she had severe headache and her blood pressure was uncontrolled that she went to the ICU for 7 days. On admission her CBC and BMP were unremarkable with creatinine 0.69. Glucose with high at 126 with triglycerides at 1150 and cholesterol 269. Ptosis of troponins are negative. Review of Systems Review of systems CONSTITUTIONAL: No fever, no malaise, no fatigue. HEENT: No recent visual problems or hearing problems. Denied any sore throat. CARDIOVASCULAR: No orthopnea, PND, no palpitations, no syncope. PULMONARY: No shortness of breath, no cough, no hemoptysis. GASTROINTESTINAL: No diarrhea, no nausea, no vomiting, no abdominal pain. Normoactive bowel sounds. NEUROLOGICAL: No headaches, no weakness, no numbness. HEMATOLOGICAL: Denies any bleeding or petechiae. GENITOURINARY: Denies any burning micturition, frequency, or urgency. MUSCULOSKELETAL/RHEUMATOLOGICAL: Denies any joint pain, swelling, or any muscle pain. ENDOCRINE: Denies any polyuria or polydipsia. Past Medical History Past Medical History: Asthma, CVA/TIA, Hyperlipidemia, Hypertension Additional Past Medical History / Comment(s): Kidney stones, small stroke 2011, Hiatal hernia History of Any Multi-Drug Resistant Organisms: MRSA Date of last positivie culture/infection: 12/11/2008 MDRO Source:: Abd wall wound Past Surgical History: Section, Cholecystectomy, Hysterectomy Additional Past Surgical History / Comment(s): Kidney stent 16 yrs ago on left due to kidney stone, incision and drainage of abscess on abdomen on left side MRSA Past Anesthesia/Blood Transfusion Reactions: No Reported Reaction Past Psychological History: Anxiety, Depression Smoking Status: Current some day smoker Past Alcohol Use History: Rare Past Drug Use History: None Reported - Past Family History Mother Family Medical History: Cancer, COPD, Diabetes Mellitus Medications and Allergies Home Medications Medication Instructions Recorded Confirmed Type ALPRAZolam [Xanax] 1 mg PO BID PRN 07/30/18 07/30/18 History Aspirin [Adult Low Dose Aspirin EC] 81 mg PO DAILY 07/30/18 07/30/18 History Chlorthalidone [Hygroton] 25 mg PO DAILY 07/30/18 07/30/18 History DULoxetine HCL [Cymbalta] 30 mg PO DAILY 07/30/18 07/30/18 History Diclofenac Sodium [Voltaren] 75 mg PO BID 07/30/18 07/30/18 History Etodolac [Lodine] 400 mg PO BID 07/30/18 07/30/18 History Famotidine [Pepcid] 20 mg PO BID 07/30/18 07/30/18 History Ibuprofen 800 mg PO Q8HR PRN 07/30/18 07/30/18 History Lisinopril 40 mg PO DAILY 07/30/18 07/30/18 History Metoprolol Tartrate [Lopressor] 50 mg PO BID 07/30/18 07/30/18 History amLODIPine [Norvasc] 10 mg PO DAILY 07/30/18 07/30/18 History Allergies Allergy/AdvReac Type Severity Reaction Status Date / Time No Known Allergies Allergy Verified 07/30/18 22:04 Physical Exam Vitals: Vital Signs Temp Pulse Resp BP Pulse Ox 07/31/18 04:10 98.8 F 94 19 151/101 99 07/31/18 04:00 88 19 07/31/18 00:15 98.5 F 93 18 141/85 98 07/31/18 00:00 91 17 07/30/18 20:15 98.3 F 91 18 162/93 99 07/30/18 20:10 94 19 Intake and Output 07/30/18 07/31/18 07/31/18 22:59 06:59 14:59 Intake Total 240 1330 Balance 240 1330 Intake: Intake, IV Titration 850 Amount Sodium Chloride 0.9% 1, 850 000 ml @ 100 mls/hr IV . Q10H [facility] Rx#:[id number] Oral 240 480 Other: Voiding Method Toilet Toilet # Voids 3 Weight 101.151 kg 101.4 kg GENERAL: The patient is alert and oriented x3, not in any acute distress. Well developed, well nourished. HEENT: Pupils are round and equally reacting to light. EOMI. No scleral icterus. No conjunctival pallor. Normocephalic, atraumatic. No pharyngeal erythema. No thyromegaly. CARDIOVASCULAR: S1 and S2 present. No murmurs, rubs, or gallops. Chest wall tenderness at the site of chest pain. -PULMONARY: Chest is clear to auscultation, no wheezing or crackles. ABDOMEN: Soft, nontender, nondistended, normoactive bowel sounds. No palpable organomegaly. -MUSCULOSKELETAL: No joint swelling or deformity. Chest wall tenderness, tenderness around the shoulder blades on both sides and on the top of the right shoulder as well. Tenderness in the neck region. -EXTREMITIES: No cyanosis, clubbing, mild bilateral leg edema, more on the right side NEUROLOGICAL: Gross neurological examination did not reveal any focal deficits. SKIN: No rashes. Results CBC & Chem 7: 07/31/18 06:22 07/31/18 06:22 Labs: Abnormal Lab Results - Last 24 Hours (Table) 07/31/18 Range/Units 06:22 Chloride 112 H (98-107) mmol/L Carbon Dioxide 20 L (22-30) mmol/L Glucose 126 H (74-99) mg/dL Calcium 7.7 L (8.4-10.2) mg/dL Triglycerides 1150 H (<150) mg/dL Cholesterol 269 H (<200) mg/dL Thrombosis Risk Factor Assmnt - Choose All That Apply Any of the Below Risk Factors Present?: Yes Each Factor Represents 1 point: Age 41-60 years, Obesity (BMI >25) Thrombosis Risk Factor Assessment Total Risk Factor Score: 2 Thrombosis Risk Factor Assessment Level: Low Risk Assessment and Plan Assessment: Chest pain, musculoskeletal various cardiac versus others Right upper extremity numbness Chronic neck and back pain, history of bulging disc as per patient. Bilateral leg erythema, right more than left. Obesity Current smoker Hypertension, essential Hyperlipidemia History of TIA versus hypertensive urgency/emergency. History of kidney stone with hydronephrosis, UTI He had this hernia by history History of hysterectomy Plan: This is a pleasant 43 years old female who presents because of chest pain and tenderness with dyspnea. Call cardiology consult with serial troponins and EKG. We'll order chest x-ray. Call neurology consult for her numbness and headache. Check Doppler of the lower extremity for her leg edema. Pain management. Labs and medication were reviewed.. Continue same treatment. Continue with symptomatic treatment. Resume home medication, however discontinue NSAIDs. Monitor lytes and vitals. DVT and GI prophylaxis. Further recommendations of the clinical course of the patient DVT prophylaxis: Subcutaneous heparin GI Prophylaxis: Pepcid PT/OT: Pending Prognosis is guarded
[2018-07-31] MEDS: traMADol 50 MG TAB PO PRN ×3 (09:58→23:08)
[2018-07-31] MEDS: amLODIPine 10 MG TAB PO SCH (09:59)
[2018-07-31] MEDS: DULoxetine HCL 30 MG CAPSULE.DR PO SCH (09:59)
[2018-07-31] MEDS: CHLORTHALIDONE 25 MG TAB PO SCH (09:59)
[2018-07-31] MEDS: FAMOTIDINE 20 MG TAB PO SCH ×2 (09:59→20:27)
[2018-07-31] MEDS: ASPIRIN 81 MG PO SCH (09:59)
[2018-07-31] MEDS: LISINOPRIL 20 MG TAB PO SCH (10:00)
[2018-07-31] MEDS: NICOTINE 14MG/24HR PATCH TRANSDERM SCH (10:00)
[2018-07-31] MEDS: ALPRAZolam 0.5 MG TAB PO PRN ×2 (10:00→20:27)
--- NOTE | 2018-07-31 10:00 | XR ---
EXAMINATION TYPE: XR chest 2V DATE OF EXAM: 07/31/2018 HISTORY: chest pain and dyspnea . REFERENCE: Previous study dated 10/20/2017. FINDINGS: Heart size upper limits of normal. The lungs are clear. Pleural spaces are clear. IMPRESSION: NO ACUTE INTRATHORACIC DISEASE.
[2018-07-31 10:43] LABS: Partial Thromboplastin Time 25.2 sec (22.0-30.0); Prothrombin Time 9.7 sec (9.0-12.0)
--- NOTE | 2018-07-31 11:45 | US ---
EXAMINATION TYPE: US venous doppler duplex UE RT DATE OF EXAM: 07/31/2018 COMPARISON: NONE CLINICAL HISTORY: numbness. SIDE PERFORMED: Right Right Arm: Negative for DVT Duplicate artery and vein seen in upper forearm. IMPRESSION: THIS EXAMINATION IS NEGATIVE FOR DVT IN THE RIGHT ARM.
--- NOTE | 2018-07-31 11:46 | US ---
EXAMINATION TYPE: US venous doppler duplex LE DATE OF EXAM: 07/31/2018 11:05 AM COMPARISON: NONE CLINICAL HISTORY: Rule out DVT. SIDE PERFORMED: Bilateral TECHNIQUE: The lower extremity deep venous system is examined utilizing real time linear array sonog lupe with graded compression, doppler sonography and color-flow sonography. VESSELS IMAGED: External Iliac Vein (EIV) Common Femoral Vein Deep Femoral Vein Greater Saphenous Vein * Femoral Vein Popliteal Vein Small Saphenous Vein * Proximal Calf Veins (* superficial vessels) Right Leg: Negative for DVT Left Leg: Negative for DVT No popliteal fossa lesion is seen. IMPRESSION: THIS EXAMINATION IS NEGATIVE FOR DVT IN BOTH LEGS.
--- NOTE | 2018-07-31 11:58 | P.CRDCN ---
History of Present Illness Consult date: 07/31/18 Requesting physician: Sedrick E Timbo Reason for Consult (text): chest pain Chief complaint: visual disturbances History of present illness: This is a pleasant 43-year-old patient with history of hypertension, hyperlipidemia and borderline diabetes as well as chronic neck, back and shoulder pain. He presented to the emergency department in [place] with complaints of visual changes, seeing "glitters", dizziness as well as a sharp stabbing chest discomfort with some shortness of breath, worse with deep inspiration. She does have some left sternal border tenderness with palpation. Chest x-ray was unremarkable. Laboratory values show troponins negative 3, potassium 3.8, triglycerides 1150 and total cholesterol of 269. On examination , patient is resting comfortably in bed. Continues to complain of some left sternal tenderness to palpation. EKG showed sinus rhythm with no evidence of acute ischemia. Past Medical History Past Medical History: Asthma, CVA/TIA, Hyperlipidemia, Hypertension Additional Past Medical History / Comment(s): Kidney stones, small stroke 2011, Hiatal hernia History of Any Multi-Drug Resistant Organisms: MRSA Date of last positivie culture/infection: 12/11/2008 MDRO Source:: Abd wall wound Past Surgical History: Section, Cholecystectomy, Hysterectomy Additional Past Surgical History / Comment(s): Kidney stent 16 yrs ago on left due to kidney stone, incision and drainage of abscess on abdomen on left side MRSA Past Anesthesia/Blood Transfusion Reactions: No Reported Reaction Past Psychological History: Anxiety, Depression Smoking Status: Current some day smoker Past Alcohol Use History: Rare Past Drug Use History: None Reported - Past Family History Mother Family Medical History: Cancer, COPD, Diabetes Mellitus Medications and Allergies Home Medications Medication Instructions Recorded Confirmed Type ALPRAZolam [Xanax] 1 mg PO BID PRN 07/30/18 07/30/18 History Aspirin [Adult Low Dose Aspirin EC] 81 mg PO DAILY 07/30/18 07/30/18 History Chlorthalidone [Hygroton] 25 mg PO DAILY 07/30/18 07/30/18 History DULoxetine HCL [Cymbalta] 30 mg PO DAILY 07/30/18 07/30/18 History Diclofenac Sodium [Voltaren] 75 mg PO BID 07/30/18 07/30/18 History Etodolac [Lodine] 400 mg PO BID 07/30/18 07/30/18 History Famotidine [Pepcid] 20 mg PO BID 07/30/18 07/30/18 History Ibuprofen 800 mg PO Q8HR PRN 07/30/18 07/30/18 History Lisinopril 40 mg PO DAILY 07/30/18 07/30/18 History Metoprolol Tartrate [Lopressor] 50 mg PO BID 07/30/18 07/30/18 History amLODIPine [Norvasc] 10 mg PO DAILY 07/30/18 07/30/18 History Allergies Allergy/AdvReac Type Severity Reaction Status Date / Time No Known Allergies Allergy Verified 07/30/18 22:04 Physical Exam Vitals: Vital Signs Temp Pulse Resp BP BP Pulse Ox 07/31/18 08:00 98.3 F 87 20 151/100 98 07/31/18 04:10 98.8 F 94 19 151/101 99 07/31/18 04:00 88 19 07/31/18 00:15 98.5 F 93 18 141/85 98 07/31/18 00:00 91 17 07/30/18 20:15 98.3 F 91 18 162/93 99 07/30/18 20:10 94 19 Intake and Output 07/30/18 07/31/18 07/31/18 22:59 06:59 14:59 Intake Total 240 1330 Balance 240 1330 Intake: Intake, IV Titration 850 Amount Sodium Chloride 0.9% 1, 850 000 ml @ 100 mls/hr IV . Q10H [facility] Rx#:[id number] Oral 240 480 Other: Voiding Method Toilet Toilet Toilet # Voids 3 Weight 101.151 kg 101.4 kg PHYSICAL EXAMINATION: HEENT: Head is atraumatic, normocephalic. Pupils equal, round. Neck is supple. There is no elevated jugular venous pressure. HEART EXAMINATION: Heart sounds regular, S1 and S2 normal. No murmur or gallop heard. CHEST EXAMINATION: Lungs are clear to auscultation and precussion. Left Sternal Border tenderness is noted on palpation or with deep breathing. ABDOMEN: Soft, nontender. Bowel sounds are heard. No organomegaly noted. EXTREMITIES: 2+ peripheral pulses with no evidence of peripheral edema and no calf tenderness noted. NEUROLOGIC patient is awake, alert and oriented x3. . Results 07/31/18 06:22 07/31/18 06:22 Cardiac Enzymes 07/30/18 07/31/18 Range/Units 22:12 06:22 Troponin I <0.012 <0.012 (0.000-0.034) ng/mL Coagulation 07/31/18 Range/Units 10:17 PT 9.7 (9.0-12.0) sec APTT 25.2 (22.0-30.0) sec Lipids 07/31/18 Range/Units 06:22 Triglycerides 1150 H (<150) mg/dL Cholesterol 269 H (<200) mg/dL HDL Cholesterol 52 (40-60) mg/dL CBC 07/31/18 Range/Units 06:22 WBC 6.7 (3.8-10.6) k/uL RBC 3.87 (3.80-5.40) m/uL Hgb 11.7 (11.4-16.0) gm/dL Hct 35.8 (34.0-46.0) % Plt Count 173 (150-450) k/uL Comprehensive Metabolic Panel 07/31/18 Range/Units 06:22 Sodium 137 (137-145) mmol/L Potassium 3.8 (3.5-5.1) mmol/L Chloride 112 H (98-107) mmol/L Carbon Dioxide 20 L (22-30) mmol/L BUN 11 (7-17) mg/dL Creatinine 0.69 (0.52-1.04) mg/dL Glucose 126 H (74-99) mg/dL Calcium 7.7 L (8.4-10.2) mg/dL Current Medications Generic Name Dose Route Start Last Admin Trade Name Patrick PRN Reason Stop Dose Admin Alprazolam 0.5 mg 07/31/18 09:13 07/31/18 10:00 Xanax PO 0.5 mg BID PRN Administration Anxiety Amlodipine Besylate 10 mg 07/31/18 09:15 07/31/18 09:59 Norvasc PO 10 mg DAILY [facility]E Administration Aspirin 81 mg 07/31/18 09:15 07/31/18 09:59 Aspirin PO 81 mg DAILY MAE Administration Chlorthalidone 25 mg 07/31/18 09:15 07/31/18 09:59 Hygroton PO 25 mg DAILY MAE Administration Duloxetine HCl 30 mg 07/31/18 09:15 07/31/18 09:59 Cymbalta PO 30 mg DAILY MAE Administration Famotidine 20 mg 07/31/18 09:15 07/31/18 09:59 Pepcid PO 20 mg BID MAE Administration Heparin Sodium (Porcine) 5,000 unit 07/31/18 00:00 07/31/18 09:35 Heparin SQ 5,000 unit Q8HR MAE Administration Sodium Chloride 1,000 mls @ 100 mls/hr 07/30/18 20:30 07/31/18 06:13 Saline 0.9% IV 100 mls/hr .Q10H [facility] Administration Lisinopril 40 mg 07/31/18 09:15 07/31/18 10:00 Zestril PO 40 mg DAILY MAE Administration Metoprolol Tartrate 50 mg 07/30/18 21:00 07/31/18 09:36 Lopressor PO 50 mg BID MAE Administration Nicotine 1 patch 07/31/18 09:15 07/31/18 10:00 Habitrol 14mg/24hr Patch TRANSDERM 1 patch DAILY MAE Administration Pantoprazole Sodium 40 mg 07/30/18 20:30 07/31/18 06:13 Protonix PO 40 mg AC-BID MAE Administration Pregabalin 75 mg 07/31/18 21:00 Lyrica PO BID MAE Tramadol HCl 50 mg 07/31/18 09:13 07/31/18 09:58 Ultram PO 50 mg QID PRN Administration Pain Intake and Output 07/30/18 07/31/18 07/31/18 22:59 06:59 14:59 Intake Total 240 1330 Balance 240 1330 Intake: Intake, IV Titration 850 Amount Sodium Chloride 0.9% 1, 850 000 ml @ 100 mls/hr IV . Q10H [facility] Rx#:[id number] Oral 240 480 Other: Voiding Method Toilet Toilet Toilet # Voids 3 Weight 101.151 kg 101.4 kg 07/31/18 06:22 07/31/18 06:22 Assessment and Plan Assessment: #1 symptoms of visual changes and left arm numbness and tingling #2 atypical chest pain #3 hypertension #4 history of borderline diabetes according to the patient #5 dyslipidemia with hypertriglyceridemia with triglycerides of 1150 Plan: From financial systems manager perspective, we will obtain a 2-D echo with Doppler. We will start the patient on fenofibrate and Lipitor. We will check TSH and hemoglobin A1c. May consider dobutamine stress echo on Thursday if the patient is not discharged before then. Further recommendations to follow. LITHOPLATE MAKER note has been reviewed, I agree with a documented findings and plan of care. Patient was seen and examined.
[2018-07-31] MEDS: FENOFIBRATE 160 MG TAB PO SCH (12:22)
--- NOTE | 2018-07-31 15:29 | P.CNNES ---
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 She states that some yesterday noticed some blurry vision and some right leg numbness. She had no weakness and she walked in [employer] she then saw some more spots in her vision so she went home. When she got home she developed shortness of breath and chest pain so her drove her to [facility]. There she had a CT of the brain and some studies and was transferred to [facility]. The patient reports his she had some numbness and tickling of the right arm as well yesterday. She states that it is not uncommon for her to get numbness in the arms and legs because of chronic neck and back problems. She has been to physical therapy. She also has copies of her MRI of the cervical and thoracic lumbar spine with her. Her chest pain is new and it comes and goes still. She has been evaluated by cardiology. Neurology is requested to see the patient regarding the numbness. Review of Systems Constitutional: Denies chills, Denies fever Eyes: denies blurred vision, denies pain Cardiovascular: Denies chest pain, Denies shortness of breath Respiratory: Denies cough Musculoskeletal: Denies myalgias Neurological: Denies numbness, Denies weakness Psychiatric: Denies anxiety, Denies depression Past Medical History Past Medical History: Asthma, CVA/TIA, Hyperlipidemia, Hypertension Additional Past Medical History / Comment(s): Kidney stones, small stroke 2011, Hiatal hernia History of Any Multi-Drug Resistant Organisms: MRSA Date of last positivie culture/infection: 12/11/2008 MDRO Source:: Abd wall wound Past Surgical History: Section, Cholecystectomy, Hysterectomy Additional Past Surgical History / Comment(s): Kidney stent 16 yrs ago on left due to kidney stone, incision and drainage of abscess on abdomen on left side MRSA Past Anesthesia/Blood Transfusion Reactions: No Reported Reaction Past Psychological History: Anxiety, Depression Smoking Status: Current some day smoker Past Alcohol Use History: Rare Past Drug Use History: None Reported - Past Family History Mother Family Medical History: Cancer, COPD, Diabetes Mellitus Medications and Allergies Home Medications Medication Instructions Recorded Confirmed Type ALPRAZolam [Xanax] 1 mg PO BID PRN 07/30/18 07/30/18 History Aspirin [Adult Low Dose Aspirin EC] 81 mg PO DAILY 07/30/18 07/30/18 History Chlorthalidone [Hygroton] 25 mg PO DAILY 07/30/18 07/30/18 History DULoxetine HCL [Cymbalta] 30 mg PO DAILY 07/30/18 07/30/18 History Diclofenac Sodium [Voltaren] 75 mg PO BID 07/30/18 07/30/18 History Etodolac [Lodine] 400 mg PO BID 07/30/18 07/30/18 History Famotidine [Pepcid] 20 mg PO BID 07/30/18 07/30/18 History Ibuprofen 800 mg PO Q8HR PRN 07/30/18 07/30/18 History Lisinopril 40 mg PO DAILY 07/30/18 07/30/18 History Metoprolol Tartrate [Lopressor] 50 mg PO BID 07/30/18 07/30/18 History amLODIPine [Norvasc] 10 mg PO DAILY 07/30/18 07/30/18 History Allergies Allergy/AdvReac Type Severity Reaction Status Date / Time No Known Allergies Allergy Verified 07/30/18 22:04 Physical Examination - Vital Signs Vital Signs: Vital Signs Temp Pulse Resp BP BP Pulse Ox 07/31/18 12:00 98.3 F 77 18 138/86 98 07/31/18 08:00 98.3 F 87 20 151/100 98 07/31/18 04:10 98.8 F 94 19 151/101 99 07/31/18 04:00 88 19 07/31/18 00:15 98.5 F 93 18 141/85 98 07/31/18 00:00 91 17 07/30/18 20:15 98.3 F 91 18 162/93 99 07/30/18 20:10 94 19 Intake and Output 07/31/18 07/31/18 07/31/18 06:59 14:59 22:59 Intake Total 1330 640 Balance 1330 640 Intake: Intake, IV Titration 850 400 Amount Sodium Chloride 0.9% 1, 850 400 000 ml @ 100 mls/hr IV . Q10H MAE Rx#:[id number] Oral 480 240 Other: Voiding Method Toilet Toilet # Voids 3 Weight 101.4 kg - Constitutional General appearance: obese - EENT EENT: PERRL - Respiratory Respiratory: lungs clear - Cardiovascular Cardiovascular: regular rate - Integumentary Integumentary: normal - Neurologic Neurologic examination: Mental status: She was awake alert and oriented 3. Her speech is fluent. There was no a aphasia or dysarthria. Next Cranial nerve examination: Cranial nerves II through XII grossly intact next Motor examination: Strength testing was without focal weakness X Sensory examination: Intact to light touch next Deep tendon reflexes: Is symmetric Gait: Not tested Results - Laboratory Findings CBC and BMP: 07/31/18 06:22 07/31/18 06:22 Abnormal Lab Findings: Abnormal Labs 07/31/18 06:22 Chloride 112 H Carbon Dioxide 20 L Glucose 126 H Calcium 7.7 L Triglycerides 1150 H Cholesterol 269 H Assessment and Plan (1) Atypical chest pain Current Visit: No Status: Acute SNOMED Code(s): 512025782 (2) Right arm numbness Current Visit: Yes Status: Acute SNOMED Code(s): 422148857 Plan: The patient is a 43-year-old woman presents to the hospital with chest pain and right arm numbness. The patient has had intermittent numbness of her arms and legs in the past because of cervical and lumbar disc disease. She states she came to the hospital this time because it was associated with some blurry vision. Patient presented to [facility] and was transferred to [facility]. She states that she is scheduled to have an [facility] later this month of her cervical spine. She states she has chronic neck and back problems and has been seen at by physical therapy the past. She recently moved to [place]. She is requesting some stronger pain medication than tramadol. Emend MRI of the brain and cervical spine. Also recommend carotid ultrasound. Patient is on low-dose aspirin.
[2018-07-31] MEDS ORDERED: KETOROLAC 30 MG/ML 1 ML VIAL IVP ONE (15:45)
[2018-07-31] MEDS: LIDOCAINE 5% PATCH TOPICAL SCH (16:24)
[2018-07-31 18:28] LABS: Hemoglobin A1C 6.2 % (4.0-6.0)
[2018-07-31] MEDS: ATORVASTATIN 40 MG TAB PO SCH (20:27)
[2018-07-31] MEDS ORDERED: PREGABALIN 75 MG CAP PO SCH (21:00)
[2018-07-31] MEDS: HYDROcodone/APAP 5-325MG 1 EACH TAB PO PRN (21:22)
--- NOTE | 2018-07-31 22:16 | US ---
EXAMINATION TYPE: US carotid duplex BILAT DATE OF EXAM: 07/31/2018 COMPARISON: NONE CLINICAL HISTORY: right arm numbness. EXAM MEASUREMENTS: RIGHT: Peak Systolic Velocity (PSV) cm/sec ----- Right CCA: 102.7 ----- Right ICA: 128.8 ----- Right ECA: 88.1 ICA/CCA ratio: 1.3 RIGHT: End Diastole cm/sec ----- Right CCA: 31.4 ----- Right ICA: 51.8 ----- Right ECA: 24.1 LEFT: Peak Systolic Velocity (PSV) cm/sec ----- Left CCA: 92.7 ----- Left ICA: 90.1 ----- Left ECA: 81.0 ICA/CCA ratio: 1.0 LEFT: End Diastole cm/sec ----- Left CCA: 25.1 ----- Left ICA: 34.2 ----- Left ECA: 28.1 VERTEBRALS (direction of flow): Right Vertebral: Antegrade Left Vertebral: Antegrade Rhythm: Normal Technically difficult, patient unable to stay away, deep breathing, snoring and pulsatile vessels. N o significant velocity elevations/ IMPRESSION: There is antegrade flow in the vertebral arteries. The images and measurements suggest c lose to 0% stenosis in both internal carotid arteries. Criteria for Assigning % of Stenosis / Diameter reduction (Estimation based on the indirect measurements of the internal carotid artery velocities (ICA PSV). 1. Normal (no stenosis)=ICA PSV < 125 cm/s: ratio < 2.0: ICA EDV<40 cm/s. 2. Less than 50% stenosis=ICA PSV < 125 cm/s: ratio < 2.0: ICA EDV<40 cm/s. 3. 50 to 69% stenosis=ICA PSV of 125 to 230 cm/s: ration 2.0 ? 4.0: ICA EDV 40-100 cm/s. 4. Greater than 70% stenosis to near occlusion= ICA PSV > 230 cm/s: ratio > 4.0: ICA EDV > 100 cm/s. 5. Near occlusion= ICA PSV velocities may be low or undetectable: variable ratio and ICA EDV. 6. Total occlusion=unable to detect flow.
[2018-08-01] MEDS: SODIUM CHLORIDE 0.9% 1,000 ML IV SCH ×3 (03:15→21:08)
[2018-08-01] MEDS: HYDROcodone/APAP 5-325MG 1 EACH TAB PO PRN ×4 (03:18→23:23)
[2018-08-01 06:28] LABS: Basophils % (A) 0 %; Eosinophils # (A) 0.2 k/uL (0-0.7); Eosinophils % (A) 3 %; HCT 37.1 % (34.0-46.0); HGB 12.2 gm/dL (11.4-16.0); Lymphocytes # (A) 2.5 k/uL (1.0-4.8); Lymphocytes % (A) 38 %; MCH 29.6 pg (25.0-35.0); MCHC 32.8 g/dL (31.0-37.0); MCV 90.4 fL (80.0-100.0); Mean Platelet Volume 8.2; Monocytes # (A) 0.2 k/uL (0-1.0); Monocytes % (A) 3 %; Neutrophils # (A) 3.6 k/uL (1.3-7.7); Neutrophils % (A) 54 %; Platelet Count 187 k/uL (150-450); RDW 13.7 % (11.5-15.5); WBC 6.6 k/uL (3.8-10.6)
[2018-08-01] MEDS: PANTOPRAZOLE 40 MG TABLET PO SCH ×2 (06:30→16:48)
[2018-08-01 06:41] LABS: ALT 31 U/L (9-52); AST 20 U/L (14-36); Albumin 3.6 g/dL (3.5-5.0); Alkaline Phosphatase 80 U/L (38-126); Anion Gap 7 mmol/L; Bilirubin, Delta 0.2 mg/dL (0.0-0.2); Bilirubin,Unconjugated 0.1 mg/dL (0.0-1.1); Blood Urea Nitrogen 11 mg/dL (7-17); Calcium 8.8 mg/dL (8.4-10.2); Carbon Dioxide 21 mmol/L (22-30); Chloride 107 mmol/L (98-107); Glucose 116 mg/dL (74-99); Potassium 4.2 mmol/L (3.5-5.1); Sodium 135 mmol/L (137-145); Total Bilirubin 0.3 mg/dL (0.2-1.3); Total Protein 6.4 g/dL (6.3-8.2)
[2018-08-01] MEDS: ENOXAPARIN 40 MG/0.4 ML SYRINGE SQ SCH (09:29)
[2018-08-01] MEDS: LIDOCAINE 5% PATCH TOPICAL SCH (09:30)
[2018-08-01] MEDS: NICOTINE 14MG/24HR PATCH TRANSDERM SCH (09:31)
[2018-08-01] MEDS: DULoxetine HCL 30 MG CAPSULE.DR PO SCH (09:31)
[2018-08-01] MEDS: PREGABALIN 75 MG CAP PO SCH ×2 (09:31→21:08)
[2018-08-01] MEDS: amLODIPine 10 MG TAB PO SCH (09:31)
[2018-08-01] MEDS: METOPROLOL TARTRATE 50 MG TAB PO SCH ×2 (09:31→21:08)
[2018-08-01] MEDS: FAMOTIDINE 20 MG TAB PO SCH ×2 (09:31→21:07)
[2018-08-01] MEDS: FENOFIBRATE 160 MG TAB PO SCH (09:32)
[2018-08-01] MEDS: CHLORTHALIDONE 25 MG TAB PO SCH (09:32)
[2018-08-01] MEDS: LISINOPRIL 20 MG TAB PO SCH (09:32)
[2018-08-01] MEDS: ASPIRIN 81 MG PO SCH (09:41)
[2018-08-01] MEDS: traMADol 50 MG TAB PO PRN ×2 (11:51→21:07)
--- NOTE | 2018-08-01 12:44 | P.PN ---
Subjective This is a pleasant 43 years old female with past medical history of asthma, TIA , hyperlipidemia, hypertension, left kidney stone, Herniated disc, cigarette smoker. She presents to [facility] because of chest pain or dyspnea of one-day duration. Patient was at the supermarket was touch having some difficulty breathing associated with chest pain central nonradiating about 10/ 10 in severity stated by the patient feels like sharp but not increased by coughing or deep inspiration. Associated with chest wall tenderness and associated with pain and tenderness on both shoulder girdles ,more of the right side of the left. Patient states that she has history of chronic disc herniations by MRI done by her doctor including the neck and lower back. However patient complaining of from numbness in her right upper extremity with headache and some visual changes, she denies diplopia. Patient is currently smoker about 1 pack which last her 3 days, she's been using Chantix for that for about a month now. She complained from the cuff with very scant phlegm. Patient also has leg swelling on both sides right more than left. She has no menstrual cycle over the last few years. I offered to check test however patient declined. Patient has history of hysterectomy. Also she states that years ago she was in the ICU for mini stroke at that time she had severe headache and her blood pressure was uncontrolled that she went to the ICU for 7 days. On admission her CBC and BMP were unremarkable with creatinine 0.69. Glucose with high at 126 with triglycerides at 1150 and cholesterol 269. Ptosis of troponins are negative. 08/01/2018 Patient chest pain is completely resolved as 0/10 in severity and swell as per numbness in the right upper extremity. Her headache and blurred vision abnormal looking better but patient will still complains from pain in both shoulder areas with difficulty in raising the arm above the heads although she couldn't do that. Patient states since January she was complaining and she is been evaluated by orthopedic for bilateral rotator cuff and that she is going to follow up with this service as an outpatient. ESR is check today, back Pain, which makes the possibility of polymyalgia Rheumatica and Temporal Arteritis a Very Low. Patient still on lidocaine patch X2, and increase A From 75 to 150 mg. Dopplers of the lower and upper extremity came back negative. Neurology evaluated recommended MRI of the brain and cervical spine: Pending. Carotid duplex no significant stenosis in both carotid arteries Objective - Vital Signs Vital signs: Vital Signs Temp 97.4 F L 08/01/18 11:36 Pulse 83 08/01/18 11:36 Resp 16 08/01/18 11:36 BP 128/79 08/01/18 11:36 Pulse Ox 98 08/01/18 11:36 Intake & Output 07/31/18 08/01/18 08/01/18 18:59 06:59 18:59 Intake Total 640 960 720 Balance 640 960 720 Intake: Intake, IV Titration 400 Amount Sodium Chloride 0.9% 1, 400 000 ml @ 100 mls/hr IV . Q10H MAE Rx#:[id number] Oral 240 960 720 Other: Voiding Method Toilet Toilet Toilet # Voids 3 1 - Exam GENERAL: The patient is alert and oriented x3, not in any acute distress. Well developed, well nourished. HEENT: Pupils are round and equally reacting to light. EOMI. No scleral icterus. No conjunctival pallor. Normocephalic, atraumatic. No pharyngeal erythema. No thyromegaly. CARDIOVASCULAR: S1 and S2 present. No murmurs, rubs, or gallops. Chest wall tenderness at the site of chest pain. -PULMONARY: Chest is clear to auscultation, no wheezing or crackles. ABDOMEN: Soft, nontender, nondistended, normoactive bowel sounds. No palpable organomegaly. -MUSCULOSKELETAL: No joint swelling or deformity. Chest wall tenderness, tenderness around the shoulder blades on both sides and on the top of the right shoulder as well. Tenderness in the neck region. -EXTREMITIES: No cyanosis, clubbing, mild bilateral leg edema, more on the right side NEUROLOGICAL: Gross neurological examination did not reveal any focal deficits. SKIN: No rashes. - Labs CBC & Chem 7: 08/01/18 05:37 08/01/18 05:37 Labs: Abnormal Lab Results - Last 24 Hours (Table) 07/31/18 08/01/18 Range/Units 06:22 05:37 Sodium 135 L (137-145) mmol/L Carbon Dioxide 21 L (22-30) mmol/L Glucose 116 H (74-99) mg/dL Hemoglobin A1c 6.2 H (4.0-6.0) % Assessment and Plan Assessment: Chest pain, musculoskeletal various cardiac versus others Right upper extremity numbness, resolved. Chronic neck and back pain, history of bulging disc as per patient. Pending MRI and other test. Bilateral shoulder pain and tenderness, right more than left. Mostly related to rotator cuff syndrome and she follow up with orthopedics as an outpatient. Obesity Current smoker Hypertension, essential Hyperlipidemia History of TIA versus hypertensive urgency/emergency. History of kidney stone with hydronephrosis, UTI He had this hernia by history History of hysterectomy Plan: This is a pleasant 43 years old female who presents because of chest pain and tenderness with dyspnea. Call cardiology consult with serial troponins and EKG. We'll order chest x-ray. Call neurology consult for her numbness and headache. Check Doppler of the lower extremity for her leg edema. Pain management. Labs and medication were reviewed.. Continue same treatment. Continue with symptomatic treatment. Resume home medication, however discontinue NSAIDs. Monitor lytes and vitals. DVT and GI prophylaxis. Further recommendations of the clinical course of the patient DVT prophylaxis: Subcutaneous heparin GI Prophylaxis: Pepcid PT/OT: Pending Prognosis is guarded
[2018-08-01] MEDS: ALPRAZolam 0.5 MG TAB PO PRN ×2 (15:15→23:23)
--- NOTE | 2018-08-01 15:53 | ECHOF ---
Referral Reason:chest pain, shortness of breath MEASUREMENTS -------- HEIGHT: 170.2 cm WEIGHT: 101.2 kg BP: 138/86 RVIDd: 2.9 cm (< 3.3) IVSd: 1.2 cm (0.6 - 1.1) LVIDd: 4.2 cm (3.9 - 5.3) LVPWd: 1.3 cm (0.6 - 1.1) IVSs: 1.3 cm LVIDs: 3.5 cm LVPWs: 1.6 cm LAESV Index (A-L): 28.58 ml/m Ao Diam: 3.3 cm (2.0 - 3.7) AV Cusp: 2.0 cm (1.5 - 2.6) LA Diam: 3.1 cm (2.7 - 3.8) EPSS: 0.5 cm MV E Lio: 0.87 m/s MV DecT: 268 ms MV A Lio: 1.07 m/s MV E/A Ratio: 0.81 AR PHT: 667 ms RAP: 5.00 mmHg RVSP: 31.05 mmHg MV EF SLOPE: 106.41 mm/s (70 - 150) MV EXCURSION: 1.85 cm (> 18.000) FINDINGS -------- Sinus rhythm. This was a technically good study. The left ventricular size is normal. There is mild concentric left ventricular hypertrophy. Overa ll left ventricular systolic function is normal with, an EF between 55 - 60 %. The right ventricle is normal in size and function. Normal LA size by volume 22+/-6 ml/m2. The right atrium is normal in size. Aortic valve is trileaflet and is mildly thickened. Trace amount of aortic regurgitation. There is no evidence of aortic stenosis. The mitral valve leaflets are mildly thickened. There is trace to mild mitral regurgitation. Trace tricuspid regurgitation present. Right ventricular systolic pressure is normal at < 35 mmHg. There is no evidence of pulmonary hypertension. Trace/mild (physiologic) pulmonic regurgitation. The aortic root size is normal. Normal inferior vena cava with normal inspiratory collapse consistent with estimated right atrial pre ssure of 5 mmHg. There is no pericardial effusion. CONCLUSIONS -------- 1. Sinus rhythm. 2. This was a technically good study. 3. The left ventricular size is normal. 4. There is mild concentric left ventricular hypertrophy. 5. Overall left ventricular systolic function is normal with, an EF between 55 - 60 %. 6. Normal LA size by volume 22+/-6 ml/m2. 7. Aortic valve is trileaflet and is mildly thickened. 8. Trace amount of aortic regurgitation. 9. The mitral valve leaflets are mildly thickened. 10. There is trace to mild mitral regurgitation. 11. Trace tricuspid regurgitation present. 12. Right ventricular systolic pressure is normal at < 35 mmHg. 13. There is no evidence of pulmonary hypertension. 14. Trace/mild (physiologic) pulmonic regurgitation. 15. The aortic root size is normal. 16. There is no pericardial effusion. LACQUER MAKER: Ben Khan RDCS
[2018-08-01] MEDS: ATORVASTATIN 40 MG TAB PO SCH (21:07)
--- NOTE | 2018-08-02 01:47 | PN ---
PROGRESS NOTE DATE OF SERVICE: 08/01/2018. HISTORY: Ms. John is a 43-year-old female who was admitted with symptoms of some blurred vision and atypical chest pain. EKGs and cardiac enzymes are normal. Patient is feeling well. Denies any chest pain. PHYSICAL EXAMINATION: Blood pressure is 128/79 mmHg. Respiratory rate is 16. Heart rate is 83. First and second heart sounds are normal. Lungs are clear to auscultation and percussion. Patient's electrolytes are normal. ASSESSMENT AND PLAN: The patient will be evaluated with dobutamine echocardiographic study tomorrow. MMODL / IJN: [id number] /
[2018-08-02] MEDS: traMADol 50 MG TAB PO PRN ×3 (03:51→18:33)
[2018-08-02 06:11] LABS: Anion Gap 5 mmol/L; Blood Urea Nitrogen 16 mg/dL (7-17); Calcium 8.4 mg/dL (8.4-10.2); Carbon Dioxide 21 mmol/L (22-30); Chloride 107 mmol/L (98-107); Glucose 141 mg/dL (74-99); Potassium 4.7 mmol/L (3.5-5.1); Sodium 133 mmol/L (137-145)
[2018-08-02] MEDS: PANTOPRAZOLE 40 MG TABLET PO SCH ×2 (06:43→16:40)
[2018-08-02] MEDS: SODIUM CHLORIDE 0.9% 1,000 ML IV SCH ×2 (06:44→17:44)
[2018-08-02] MEDS: CHLORTHALIDONE 25 MG TAB PO SCH (08:12)
[2018-08-02] MEDS: PREGABALIN 75 MG CAP PO SCH ×2 (08:12→22:44)
[2018-08-02] MEDS: ASPIRIN 81 MG PO SCH (08:12)
[2018-08-02] MEDS: LISINOPRIL 20 MG TAB PO SCH (08:12)
[2018-08-02] MEDS: FAMOTIDINE 20 MG TAB PO SCH ×2 (08:12→22:43)
[2018-08-02] MEDS: FENOFIBRATE 160 MG TAB PO SCH (08:12)
[2018-08-02] MEDS: ENOXAPARIN 40 MG/0.4 ML SYRINGE SQ SCH (08:12)
[2018-08-02] MEDS: METOPROLOL TARTRATE 50 MG TAB PO SCH ×2 (08:12→22:43)
[2018-08-02] MEDS: DULoxetine HCL 30 MG CAPSULE.DR PO SCH (08:12)
[2018-08-02] MEDS: amLODIPine 10 MG TAB PO SCH (08:12)
[2018-08-02] MEDS: LIDOCAINE 5% PATCH TOPICAL SCH (08:13)
[2018-08-02] MEDS: NICOTINE 14MG/24HR PATCH TRANSDERM SCH (08:13)
[2018-08-02] MEDS: HYDROcodone/APAP 5-325MG 1 EACH TAB PO PRN ×4 (08:21→22:44)
[2018-08-02] MEDS: ALPRAZolam 0.5 MG TAB PO PRN ×2 (10:48→22:44)
--- NOTE | 2018-08-02 11:01 | P.PN ---
Subjective This is a pleasant 43 years old female with past medical history of asthma, TIA , hyperlipidemia, hypertension, left kidney stone, Herniated disc, cigarette smoker. She presents to [facility] because of chest pain or dyspnea of one-day duration. Patient was at the supermarket was touch having some difficulty breathing associated with chest pain central nonradiating about 10/ 10 in severity stated by the patient feels like sharp but not increased by coughing or deep inspiration. Associated with chest wall tenderness and associated with pain and tenderness on both shoulder girdles ,more of the right side of the left. Patient states that she has history of chronic disc herniations by MRI done by her doctor including the neck and lower back. However patient complaining of from numbness in her right upper extremity with headache and some visual changes, she denies diplopia. Patient is currently smoker about 1 pack which last her 3 days, she's been using Chantix for that for about a month now. She complained from the cuff with very scant phlegm. Patient also has leg swelling on both sides right more than left. She has no menstrual cycle over the last few years. I offered to check test however patient declined. Patient has history of hysterectomy. Also she states that years ago she was in the ICU for mini stroke at that time she had severe headache and her blood pressure was uncontrolled that she went to the ICU for 7 days. On admission her CBC and BMP were unremarkable with creatinine 0.69. Glucose with high at 126 with triglycerides at 1150 and cholesterol 269. Ptosis of troponins are negative. 08/01/2018 Patient chest pain is completely resolved as 0/10 in severity and swell as per numbness in the right upper extremity. Her headache and blurred vision abnormal looking better but patient will still complains from pain in both shoulder areas with difficulty in raising the arm above the heads although she couldn't do that. Patient states since January she was complaining and she is been evaluated by orthopedic for bilateral rotator cuff and that she is going to follow up with this service as an outpatient. ESR is check today, back Pain, which makes the possibility of polymyalgia Rheumatica and Temporal Arteritis a Very Low. Patient still on lidocaine patch X2, and increase A From 75 to 150 mg. Dopplers of the lower and upper extremity came back negative. Neurology evaluated recommended MRI of the brain and cervical spine: Pending. Carotid duplex no significant stenosis in both carotid arteries 08/02/2018 Patient sustained compared to yesterday with improvement of chest pain is 0/10 and numbness in her right upper extremity. Still complaining of from shoulder blade pain and headache on and off. She was does not any distress. Carotid duplex and echo were unremarkable after neurological and cardiology evaluation. MRI of the brain and cervical spine still pending. Patient might be going for stress test tomorrow. However patient today states she has loose bowel movements with sometimes in her abdomen and last night however today she is abdomen pain free. With no nausea vomiting. Check for C. diff. Objective - Vital Signs Vital signs: Vital Signs Temp 98.3 F 08/02/18 04:10 Pulse 77 08/02/18 04:10 Resp 17 08/02/18 04:10 BP 101/61 08/02/18 04:10 Pulse Ox 95 08/02/18 04:10 Intake & Output 08/01/18 08/02/18 08/02/18 18:59 06:59 18:59 Intake Total 1200 480 Balance 1200 480 Weight 101.6 kg Intake: Oral 1200 480 Other: Voiding Method Toilet Toilet # Voids 1 3 - Exam GENERAL: The patient is alert and oriented x3, not in any acute distress. Well developed, well nourished. HEENT: Pupils are round and equally reacting to light. EOMI. No scleral icterus. No conjunctival pallor. Normocephalic, atraumatic. No pharyngeal erythema. No thyromegaly. CARDIOVASCULAR: S1 and S2 present. No murmurs, rubs, or gallops. Chest wall tenderness at the site of chest pain. -PULMONARY: Chest is clear to auscultation, no wheezing or crackles. ABDOMEN: Soft, nontender, nondistended, normoactive bowel sounds. No palpable organomegaly. -MUSCULOSKELETAL: No joint swelling or deformity. Chest wall tenderness, tenderness around the shoulder blades on both sides and on the top of the right shoulder as well. Tenderness in the neck region. -EXTREMITIES: No cyanosis, clubbing, mild bilateral leg edema, more on the right side NEUROLOGICAL: Gross neurological examination did not reveal any focal deficits. SKIN: No rashes. - Labs CBC & Chem 7: 08/01/18 05:37 08/02/18 05:35 Labs: Abnormal Lab Results - Last 24 Hours (Table) 08/02/18 Range/Units 05:35 Sodium 133 L (137-145) mmol/L Carbon Dioxide 21 L (22-30) mmol/L Glucose 141 H (74-99) mg/dL Assessment and Plan Assessment: Chest pain, musculoskeletal various cardiac versus others Right upper extremity numbness, resolved. Chronic neck and back pain, history of bulging disc as per patient. Pending MRI and other test. Bilateral shoulder pain and tenderness, right more than left. Mostly related to rotator cuff syndrome and she follow up with orthopedics as an outpatient. Rule out C. diff, or diarrhea Obesity Current smoker Hypertension, essential Hyperlipidemia History of TIA versus hypertensive urgency/emergency. History of kidney stone with hydronephrosis, UTI He had this hernia by history History of hysterectomy Plan: This is a pleasant 43 years old female who presents because of chest pain and tenderness with dyspnea. Call cardiology consult with serial troponins and EKG. We'll order chest x-ray. Call neurology consult for her numbness and headache. Check Doppler of the lower extremity for her leg edema. Pain management. Labs and medication were reviewed.. Continue same treatment. Continue with symptomatic treatment. Resume home medication, however discontinue NSAIDs. Monitor lytes and vitals. DVT and GI prophylaxis. Further recommendations of the clinical course of the patient DVT prophylaxis: Subcutaneous heparin GI Prophylaxis: Pepcid PT/OT: Pending Prognosis is guarded
[2018-08-02] MEDS: LOPERAMIDE 2 MG CAP PO PRN ×2 (15:19→22:48)
[2018-08-02] MEDS: ATORVASTATIN 40 MG TAB PO SCH (22:43)
[2018-08-03] MEDS: SODIUM CHLORIDE 0.9% 1,000 ML IV SCH ×3 (05:44→23:30)
[2018-08-03] MEDS: traMADol 50 MG TAB PO PRN ×2 (05:45→17:17)
[2018-08-03 06:34] LABS: Anion Gap 8 mmol/L; Blood Urea Nitrogen 14 mg/dL (7-17); Calcium 9.1 mg/dL (8.4-10.2); Carbon Dioxide 19 mmol/L (22-30); Chloride 108 mmol/L (98-107); Glucose 121 mg/dL (74-99); Potassium 4.8 mmol/L (3.5-5.1); Sodium 135 mmol/L (137-145)
[2018-08-03] MEDS: PANTOPRAZOLE 40 MG TABLET PO SCH ×2 (06:53→17:15)
[2018-08-03] MEDS ORDERED: DOBUTamine DRIP for NUC MED 500 MG in DEXTROSE/WATER 1 250ML.BAG IV ONE (09:00)
[2018-08-03] MEDS: CHLORTHALIDONE 25 MG TAB PO SCH (11:13)
[2018-08-03] MEDS: PREGABALIN 75 MG CAP PO SCH ×2 (11:13→21:15)
[2018-08-03] MEDS: FENOFIBRATE 160 MG TAB PO SCH (11:13)
[2018-08-03] MEDS: LISINOPRIL 20 MG TAB PO SCH (11:13)
[2018-08-03] MEDS: METOPROLOL TARTRATE 50 MG TAB PO SCH ×2 (11:13→21:15)
[2018-08-03] MEDS: ASPIRIN 81 MG PO SCH (11:13)
[2018-08-03] MEDS: amLODIPine 10 MG TAB PO SCH (11:13)
[2018-08-03] MEDS: DULoxetine HCL 30 MG CAPSULE.DR PO SCH (11:13)
[2018-08-03] MEDS: HYDROcodone/APAP 5-325MG 1 EACH TAB PO PRN ×3 (11:14→19:49)
[2018-08-03] MEDS: ALPRAZolam 0.5 MG TAB PO PRN ×2 (11:14→23:41)
[2018-08-03] MEDS: LIDOCAINE 5% PATCH TOPICAL SCH (11:15)
[2018-08-03] MEDS: NICOTINE 14MG/24HR PATCH TRANSDERM SCH (11:15)
[2018-08-03] MEDS: ENOXAPARIN 40 MG/0.4 ML SYRINGE SQ SCH (11:15)
--- NOTE | 2018-08-03 11:34 | ECHOS ---
STRESS ECHOCARDIOGRAM DOBUTAMINE STRESS ECHOCARDIOGRAM: DATE OF SERVICE: August 03, 2018 INDICATIONS: Chest pain. MEDICATIONS: BASELINE HEART RATE: 75 BASELINE BLOOD PRESSURE: 121/71 MAXIMUM HEART RATE: 152 MAXIMUM BLOOD PRESSURE: 207/78 85% MPHR: 150 100% MPHR: 177 METS: MAXIMUM STAGE REACHED: TOTAL EXERCISE TIME: CLINICAL INFORMATION: STRESS DATA: Pretesting physical examination showed a heart rate of 75. Pressure is 121/71 mmHg. Baseline EKG showed sinus rhythm. Dobutamine infusion at a dose of 10 mcg/kg per minute was initiated and increased to 30 mcg/kg per minute. Max heart rate was 152, which is about 85% of maximum predicted heart rate. Maximum blood pressure was 207/78 mmHg. Clinically the patient did not have any symptoms of chest pain or discomfort. The EKG did not show any significant ST or T-wave abnormalities concerning for ischemia. ECHOCARDIOGRAM IMAGES: On echocardiogram images from parasternal long axis view, parasternal short axis view, apical 4 chambers and apical 2 chamber view were obtained as the baseline images, at low dose dobutamine infusion, at peak heart rate, as well as on the recovery. The echocardiogram images showed good augmentation of the left ventricular systolic function without any obvious wall motion abnormalities concerning for ischemia. CONCLUSION: 1. Normal EKG in response to dobutamine. 2. Normal echocardiographic response to dobutamine. 3. Essentially normal dobutamine stress echocardiogram for the patient. MMODL / IJN: [id number] /
[2018-08-03] MEDS: FAMOTIDINE 20 MG TAB PO SCH (12:06)
[2018-08-03] MEDS: LOPERAMIDE 2 MG CAP PO PRN (12:14)
--- NOTE | 2018-08-03 12:44 | P.PN ---
Subjective Progress Note Date: 08/03/18 This is a 43-year-old female with known history of hypertension, hyperlipidemia, borderline diabetes, chronic neck back and shoulder pain who presented to the hospital with symptoms of visual changes with associated chest pain. Chest pain was quite atypical in nature. Troponins were negative. Patient underwent a dobutamine echocardiographic study today which was negative for any reversible ischemia. Hemodynamically she is stable. From cardiology's perspective, she may be able to be discharged home once cleared by primary. Objective - Vital Signs Vital signs: Vital Signs Temp 98.3 F 08/03/18 08:40 Pulse 81 08/03/18 08:40 Resp 16 08/03/18 08:40 BP 135/77 08/03/18 08:40 Pulse Ox 93 L 08/03/18 08:40 Intake & Output 08/02/18 08/03/18 08/03/18 18:59 06:59 18:59 Intake Total 582 490 Balance 582 490 Weight 100 kg Intake: IV 10 0.9 10 Oral 582 480 Other: Voiding Method Toilet # Voids 3 # Bowel Movements 2 3 - Exam PHYSICAL EXAMINATION: GENERAL: 83-year-old female in no acute distress at the time of my examination HEENT: Head is atraumatic, normocephalic. Pupils equal, round. Sclera anicteric. Conjunctiva are clear. Mucous membranes of the mouth are moist. Neck is supple. There is no elevated jugular venous pressure.] bruit is heard. HEART EXAMINATION: Heart S1, S2 normal. No murmur or gallop heard. CHEST EXAMINATION: Lungs are clear to auscultation and precussion. No chest wall tenderness is noted on palpation or with deep breathing. ABDOMEN: Soft, nontender. Bowel sounds are heard. No organomegaly noted. EXTREMITIES: 2+ peripheral pulses with no evidence of peripheral edema and no calf tenderness noted. NEUROLOGIC patient is awake, alert and oriented ?-3. . - Labs CBC & Chem 7: 08/01/18 05:37 08/03/18 05:47 Labs: Abnormal Lab Results - Last 24 Hours (Table) 08/03/18 Range/Units 05:47 Sodium 135 L (137-145) mmol/L Chloride 108 H (98-107) mmol/L Carbon Dioxide 19 L (22-30) mmol/L Glucose 121 H (74-99) mg/dL Assessment and Plan Plan: Assessment and plan #1 symptoms of visual changes and left arm numbness, MRI scheduled for today. #2 atypical chest pain, dobutamine echocardiographic study negative for any reversible ischemia. #3 hypertension #4 history of borderline diabetes #5 hyperlipidemia Plan From cardiology's perspective, patient may be able to be discharged home once cleared by primary. We will follow her along with you now on an as-needed basis only. Please don't hesitate to call with any questions. DNP note has been reviewed, I agree with a documented findings and plan of care. Patient was seen and examined.
--- NOTE | 2018-08-03 13:07 | P.DS ---
Providers Date of admission: 07/30/18 19:23 Attending physician: Sedrick Izquierdo MD Consults: 07/30/18 20:28 Consult Physician Routine Consulting Provider: Aristeo Gleason Consult Reason/Comments: CHEST PAIN Do you want consulting provider notified?: Yes, Notify in am 07/31/18 09:15 Consult Physician Routine Consulting Provider: Dave Zuñiga Consult Reason/Comments: arm numbness, headache Do you want consulting provider notified?: Yes Primary care physician: Sedrick Izquierdo MD Hospital Course: 43 years old female with past medical history of asthma, TIA, hyperlipidemia, hypertension, left kidney stone, Herniated disc, cigarette smoker. She presents to [facility] because of chest pain or dyspnea of one-day duration. [facility] some difficulty breathing associated with chest pain central nonradiating about 10/10 in severity stated by the patient feels like sharp but not increased by coughing or deep inspiration. Associated with chest wall tenderness and associated with pain and tenderness on both shoulder girdles ,more of the right side of the left. Patient states that she has history of chronic disc herniations by MRI done by her doctor including the neck and lower back. However patient complaining of from numbness in her right upper extremity with headache and some visual changes, she denies diplopia. Patient is currently smoker about 1 pack which last her 3 days, she's been using Chantix for that for about a month now. She complained from the cuff with very scant phlegm. Patient also has leg swelling on both sides right more than left. She has no menstrual cycle over the last few years. I offered to check test however patient declined. Patient has history of hysterectomy. Also she states that years ago she was in the ICU for mini stroke at that time she had severe headache and her blood pressure was uncontrolled that she went to the ICU for 7 days. On admission her CBC and BMP were unremarkable with creatinine 0.69. Glucose with high at 126 with triglycerides at 1150 and cholesterol 269. Ptosis of troponins are negative. 08/01/2018 Patient chest pain is completely resolved as 0/10 in severity and swell as per numbness in the right upper extremity. Her headache and blurred vision abnormal looking better but patient will still complains from pain in both shoulder areas with difficulty in raising the arm above the heads although she couldn't do that. Patient states since January she was complaining and she is been evaluated by orthopedic for bilateral rotator cuff and that she is going to follow up with this service as an outpatient. ESR is check today, back Pain, which makes the possibility of polymyalgia Rheumatica and Temporal Arteritis a Very Low. Patient still on lidocaine patch X2, and increase A From 75 to 150 mg. Dopplers of the lower and upper extremity came back negative. Neurology evaluated recommended MRI of the brain and cervical spine: Pending. Carotid duplex no significant stenosis in both carotid arteries 08/02/2018 Patient sustained compared to yesterday with improvement of chest pain is 0/10 and numbness in her right upper extremity. Still complaining of from shoulder blade pain and headache on and off. She was does not any distress. Carotid duplex and echo were unremarkable after neurological and cardiology evaluation. MRI of the brain and cervical spine still pending. Patient might be going for stress test tomorrow. However patient today states she has loose bowel movements with sometimes in her abdomen and last night however today she is abdomen pain free. With no nausea vomiting. Check for C. diff. 08/03/2018 Patient stress test is negative. Patient appears to have cervical degenerative disc disease after the MRI patient will be discharged patient's the blurry vision is better will need to follow up with the ophthalmology as an outpatient are do not believe patient has a stroke at this time, but we'll rule out stroke with an MRI as mentioned above. Patient will be discharged on aspirin patient is also having diarrhea about 3-4 stools a day patient is not dehydrated patient can undergo further workup as an outpatient C. diff is negative. Advised to drink lots of water. Patient will be discharged on symptomatically treatment with Imodium. PHYSICAL EXAMINATION: GENERAL: The patient is alert and oriented x3, not in any acute distress. Well developed, well nourished. HEENT: Pupils are round and equally reacting to light. EOMI. No scleral icterus. No conjunctival pallor. Normocephalic, atraumatic. No pharyngeal erythema. No thyromegaly. CARDIOVASCULAR: S1 and S2 present. No murmurs, rubs, or gallops. PULMONARY: Chest is clear to auscultation, no wheezing or crackles. ABDOMEN: Soft, nontender, nondistended, normoactive bowel sounds. No palpable organomegaly. MUSCULOSKELETAL: No joint swelling or deformity. EXTREMITIES: No cyanosis, clubbing, or pedal edema. NEUROLOGICAL: Gross neurological examination did not reveal any focal deficits. SKIN: No rashes. Assessment and Plan Assessment: Chest pain, musculoskeletal, stress test negative Right upper extremity numbness, secondary to possible cervical degenerative disc disease follow with arthritic surgery as an outpatient nonsteroidal anti- inflammatory medications and physical therapy Chronic neck and back pain, history of bulging disc as per patient. Brain and cervical MRI pending Bilateral shoulder pain and tenderness, right more than left. Mostly related to rotator cuff syndrome and she follow up with orthopedics as an outpatient. Rule out C. diff, or diarrhea Obesity Current smoker Hypertension, essential Hyperlipidemia Plan - Discharge Summary Discharge Rx Participant: No New Discharge Prescriptions: New Loperamide [Imodium] 2 mg PO QID #20 capsule No Action amLODIPine [Norvasc] 10 mg PO DAILY Aspirin [Adult Low Dose Aspirin EC] 81 mg PO DAILY Chlorthalidone [Hygroton] 25 mg PO DAILY DULoxetine HCL [Cymbalta] 30 mg PO DAILY Ibuprofen 800 mg PO Q8HR PRN PRN Reason: Pain Lisinopril 40 mg PO DAILY Metoprolol Tartrate [Lopressor] 50 mg PO BID Famotidine [Pepcid] 20 mg PO BID ALPRAZolam [Xanax] 1 mg PO BID PRN PRN Reason: Anxiety Discharge Medication List ALPRAZolam [Xanax] 1 mg PO BID PRN 07/30/18 [History] Aspirin [Adult Low Dose Aspirin EC] 81 mg PO DAILY 07/30/18 [History] Chlorthalidone [Hygroton] 25 mg PO DAILY 07/30/18 [History] DULoxetine HCL [Cymbalta] 30 mg PO DAILY 07/30/18 [History] Famotidine [Pepcid] 20 mg PO BID 07/30/18 [History] Ibuprofen 800 mg PO Q8HR PRN 07/30/18 [History] Lisinopril 40 mg PO DAILY 07/30/18 [History] Metoprolol Tartrate [Lopressor] 50 mg PO BID 07/30/18 [History] amLODIPine [Norvasc] 10 mg PO DAILY 07/30/18 [History] Loperamide [Imodium] 2 mg PO QID #20 capsule 08/03/18 [Rx] Discharge Disposition: HOME SELF-CARE
--- NOTE | 2018-08-03 16:25 | MR ---
MRI CERVICAL SPINE: CLINICAL HISTORY: Right arm numbness TECHNIQUE: Multiplanar, multisequence imaging of the cervical spine and brain is performed without co ntrast. COMPARISON: Head CT 07/30/2018 from outside institution FINDINGS: Brain MR: There is no restricted diffusion. There is no hemorrhage or hydrocephalus. Orbits show symm etric appearance. Cerebellopontine angles, corpus callosum, pituitary, cervical medullary junction ar e normal. There are normal vascular flow voids present. Brain signal is remarkable for scattered hype rintensities on inversion recovery and T2-weighted sequences are present, approximately 3-5 lesions, largest on axial image 18 in the posterior parietal region measuring 5 to 6 mm. There is a hiatal les ion which is T2 hyperintense, T1 hypointense measuring approximately 18 mm in anterior to posterior d imension by 15 mm in transverse dimension by 13 mm in cephalad to caudal dimension. Inflammatory changes are present within the bilateral maxillary sinuses, ethmoid air cells. Mastoid a ir cells show mild inflammatory change on the right. 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 Sinus disease. Nonspecific white matter signal change is of q uestionable clinical significance. Cervical spine MRI: There is motion on the exam which may limit evaluation. Sagittal images of the ce rvical spine show the craniocervical junction to appear within normal limits. The cervical and upper thoracic spinal cord is normal in course, caliber, and signal. Vertebral alignment is anatomic. Th e vertebral body and intravertebral disk heights are normal. The bone marrow signal intensity is wit hin normal limits. Axial images show focal disc herniation at C5-6 extending in the right posterior paracentral location causing anterior contact the cervical cord, some mild central canal stenosis. C6-7 shows a broad-based posterior disc bulge causing mild anterior mass effect on the thecal sac. C2-3, C3-4, C4-5 show small posterior central disc bulges extending without causing significant centr al stenosis IMPRESSION: Degenerative disc disease, disc herniation at C5-6, correlate for right C6 radiculopathy. There is motion on the exam which may limit evaluation.
--- NOTE | 2018-08-03 20:03 | P.PN ---
Subjective Progress Note Date: 08/03/18 The patient is a 43-year-old woman with multiple medical problems and chronic cervical disc disease as well as lumbar disc disease who presented to the hospital with chest pain. She also had been experiencing some blurred vision and right arm numbness. She has a history of chronic numbness to the arms and legs off and on for years due to chronic neck and back problems. She has a history of cervical disc protrusion as well as lumbar disc disease. She had an MRI of the cervical spine today which showed degenerative disc disease as well as disc herniation at C5 6. Also there was disc bulges at C6 7, C2 3, C3 4 and C4 5. complains of headaches in the occipital head region. She does have some occipital notch tenderness. Objective - Vital Signs Vital signs: Vital Signs Temp 98.5 F 08/03/18 15:23 Pulse 76 08/03/18 15:23 Resp 16 08/03/18 15:23 BP 91/47 08/03/18 15:23 Pulse Ox 96 08/03/18 15:23 Intake & Output 08/03/18 08/03/18 08/04/18 06:59 18:59 06:59 Intake Total 490 600 Balance 490 600 Weight 100 kg Intake: IV 10 0.9 10 Oral 480 600 Other: Voiding Method Toilet # Voids 3 # Bowel Movements 3 1 - Constitutional General appearance: Present: cooperative - EENT Eyes: Present: PERRLA - Neck Carotids: bilateral: upstroke normal - Respiratory Respiratory: bilateral: CTA - Cardiovascular Rhythm: regular - Neurologic Neurologic: Present: CNII-XII intact - Musculoskeletal Musculoskeletal: Present: strength equal bilaterally - Psychiatric Psychiatric: Present: A&O x's 3 - Labs CBC & Chem 7: 08/01/18 05:37 08/03/18 05:47 Labs: Abnormal Lab Results - Last 24 Hours (Table) 08/03/18 Range/Units 05:47 Sodium 135 L (137-145) mmol/L Chloride 108 H (98-107) mmol/L Carbon Dioxide 19 L (22-30) mmol/L Glucose 121 H (74-99) mg/dL Assessment and Plan (1) Atypical chest pain Current Visit: No Status: Acute SNOMED Code(s): 968438494 (2) Herniated cervical disc Current Visit: Yes Status: Acute SNOMED Code(s): 883575960 (3) Bilateral occipital neuralgia Current Visit: Yes Status: Acute SNOMED Code(s): 87656462 Plan: The patient is a 43-year-old woman presents to the hospital with chest pain and right arm numbness. She had an MRI of the cervical spine today which showed herniated disc at C5 6. She had an MRI of the brain which showed probable pineal gland cyst. Patient has bilateral occipital notch tenderness and her headaches are likely due to bilateral occipital neuralgia. Recommend occipital nerve block for headaches. Anesthesiology has been consulted for nerve block. Dr. Menjivar has been consulted regarding cervical disc disease
[2018-08-03] MEDS: ATORVASTATIN 40 MG TAB PO SCH (21:15)
[2018-08-03] MEDS: HYDROmorphone 1 MG/ML 1 ML SYRINGE IVP PRN (22:42)
[2018-08-04] MEDS: HYDROmorphone 1 MG/ML 1 ML SYRINGE IVP PRN ×3 (05:18→13:22)
[2018-08-04] MEDS: ENOXAPARIN 40 MG/0.4 ML SYRINGE SQ SCH (09:17)
[2018-08-04] MEDS: FENOFIBRATE 160 MG TAB PO SCH (09:17)
[2018-08-04] MEDS: amLODIPine 10 MG TAB PO SCH (09:17)
[2018-08-04] MEDS: NICOTINE 14MG/24HR PATCH TRANSDERM SCH (09:17)
[2018-08-04] MEDS: METOPROLOL TARTRATE 50 MG TAB PO SCH (09:17)
[2018-08-04] MEDS: PANTOPRAZOLE 40 MG TABLET PO SCH (09:18)
[2018-08-04] MEDS: CHLORTHALIDONE 25 MG TAB PO SCH (09:18)
[2018-08-04] MEDS: LISINOPRIL 20 MG TAB PO SCH (09:18)
[2018-08-04] MEDS: ASPIRIN 81 MG PO SCH (09:18)
[2018-08-04] MEDS: DULoxetine HCL 30 MG CAPSULE.DR PO SCH (09:18)
[2018-08-04] MEDS: LIDOCAINE 5% PATCH TOPICAL SCH (09:20)
[2018-08-04] MEDS: PREGABALIN 75 MG CAP PO SCH (09:31)
[2018-08-04] MEDS: LOPERAMIDE 2 MG CAP PO PRN (09:32)
[2018-08-04 09:46] LABS: Calcium 8.9 mg/dL (8.4-10.2); Potassium 4.4 mmol/L (3.5-5.1)
[2018-08-04] MEDS: SODIUM CHLORIDE 0.9% 1,000 ML IV SCH (11:04)
[2018-08-04 12:56] VITALS: BP 113/59; PULSE 67; RESP 17; TEMP 97.8
--- NOTE | 2018-08-04 13:08 | P.DS ---
Providers Date of admission: 07/30/18 19:23 Attending physician: Sedrick Izquierdo MD Consults: 07/30/18 20:28 Consult Physician Routine Consulting Provider: Aristoe Gleason Consult Reason/Comments: CHEST PAIN Do you want consulting provider notified?: Yes, Notify in am 07/31/18 09:15 Consult Physician Routine Consulting Provider: Dave Zuñiga Consult Reason/Comments: arm numbness, headache Do you want consulting provider notified?: Yes 08/03/18 16:35 Consult Physician Routine Consulting Provider: Rick Menjivar Consult Reason/Comments: disc herniation Do you want consulting provider notified?: Yes Primary care physician: Sedrick Izquierdo MD Hospital Course: Patient had MRI of the cervical spine and head which is significant for degenerative cervical disc disease and disc herniation at C5-C6 and radiculopathy at C6 level. Patient will be given a Medrol Dosepak. Patient was evaluated by pain management services patient will need an occipital nerve block which she will be scheduled for after she is is evaluated as an outpatient by in management and patient will be discharged today. PHYSICAL EXAMINATION: GENERAL: The patient is alert and oriented x3, not in any acute distress. Well developed, well nourished. HEENT: Pupils are round and equally reacting to light. EOMI. No scleral icterus. No conjunctival pallor. Normocephalic, atraumatic. No pharyngeal erythema. No thyromegaly. CARDIOVASCULAR: S1 and S2 present. No murmurs, rubs, or gallops. PULMONARY: Chest is clear to auscultation, no wheezing or crackles. ABDOMEN: Soft, nontender, nondistended, normoactive bowel sounds. No palpable organomegaly. MUSCULOSKELETAL: No joint swelling or deformity. EXTREMITIES: No cyanosis, clubbing, or pedal edema. NEUROLOGICAL: Gross neurological examination did not reveal any focal deficits. SKIN: No rashes. Please refer to dictation of discharge from as today for Further details Plan - Discharge Summary Discharge Rx Participant: No New Discharge Prescriptions: New Loperamide [Imodium] 2 mg PO QID #20 capsule methylPREDNISolone Dose Pack [Medrol Dose Pack] 4 mg PO DIRECTED #21 package No Action amLODIPine [Norvasc] 10 mg PO DAILY Aspirin [Adult Low Dose Aspirin EC] 81 mg PO DAILY Chlorthalidone [Hygroton] 25 mg PO DAILY DULoxetine HCL [Cymbalta] 30 mg PO DAILY Ibuprofen 800 mg PO Q8HR PRN PRN Reason: Pain Lisinopril 40 mg PO DAILY Metoprolol Tartrate [Lopressor] 50 mg PO BID Famotidine [Pepcid] 20 mg PO BID ALPRAZolam [Xanax] 1 mg PO BID PRN PRN Reason: Anxiety Discharge Medication List ALPRAZolam [Xanax] 1 mg PO BID PRN 07/30/18 [History] Aspirin [Adult Low Dose Aspirin EC] 81 mg PO DAILY 07/30/18 [History] Chlorthalidone [Hygroton] 25 mg PO DAILY 07/30/18 [History] DULoxetine HCL [Cymbalta] 30 mg PO DAILY 07/30/18 [History] Famotidine [Pepcid] 20 mg PO BID 07/30/18 [History] Ibuprofen 800 mg PO Q8HR PRN 07/30/18 [History] Lisinopril 40 mg PO DAILY 07/30/18 [History] Metoprolol Tartrate [Lopressor] 50 mg PO BID 07/30/18 [History] amLODIPine [Norvasc] 10 mg PO DAILY 07/30/18 [History] Loperamide [Imodium] 2 mg PO QID #20 capsule 08/03/18 [Rx] methylPREDNISolone Dose Pack [Medrol Dose Pack] 4 mg PO DIRECTED #21 package 08/04/18 [Rx] Follow up Appointment(s)/Referral(s): , primary [Other] - 1 Week (Please schedule appointment with your PCP within a week) Linda Zuñiga MD [STAFF PHYSICIAN] - 08/24/18 2:30 pm (Thursday) Discharge Disposition: HOME SELF-CARE
--- NOTE | 2018-08-04 14:18 | P.PAINCN ---
History of Present Illness - Reason for Consult Consult date: 08/04/18 - History of Present Illness The patient is a 43-year-old woman with multiple medical problems, patient was evaluated by neurology services ,and recommended occipital nerve block because patient had severe headache, and she is diagnosed with bilateral occipital neuralgia and chronic cervical disc disease as well as lumbar disc disease who presented to the hospital with chest pain. She also had been experiencing some blurred vision and right arm numbness. She has a history of chronic numbness . She had an MRI of the cervical spine today which showed degenerative disc disease as well as disc herniation at C5 6. Also there was disc bulges at C6 7 , C2 3, C3 4 and C4 5. complains of headaches in the occipital head region. She does have some occipital notch tenderness. Objective Vital Signs Temp 98.5 F 08/03/18 15:23 Pulse 76 08/03/18 15:23 Resp 16 08/03/18 15:23 BP 91/47 08/03/18 15:23 Pulse Ox 96 08/03/18 15:23 Intake & Output 08/03/18 08/03/18 08/04/18 06:59 18:59 06:59 Intake Total 490 600 Balance 490 600 Weight 100 kg Intake: IV 10 0.9 10 Oral 480 600 Other: Voiding Method Toilet # Voids 3 # Bowel Movements 3 1 Physical Examinations : 1-Constitutiona : Cooperative , not in acute distress . 2-HEENT : nech ; supple , no Lymphadenopathy , normal thyroid size . eyes : no ptosis , no icterus, no photophobia . ENT : normal of hearing , normal oropharynx , no Thrush . 3- Respiratory : Chest clear to auscultations Bilaterally , no wheezing , no Rhonchi . 4- Cardiovascular : regular rate and rhythem , S1 , S2 , no S3 , no S4. 5- Gastrointestinal : abdomen soft no tenderness , bowel sounds , no organomegally . 6- Genitourinary : Defferred . 7- neurologic : Cranial nerve II to XII intact , no focal neurological deffecit . 8-psychatric : alert , oriented X 3 , appropriate affect , intact judgment and insight . 9-Lymphatic : no Lymphadenopathy . 10- musculoskeltal : Cervical Spine motor stregnth in the deltoid and biceps, normal right side , normal Left side motor stregnth biceps and the wrist extensors normal right side ,normal left side . motor stregnth in the triceps muscle . normal Right side , normal Left side deep tendon reflexes normal at the biceps , normal at Brachioradialis , normal at triceps. positive cervical facet loading test . Positive severe tenderness over the occipital nerves bilaterally Lumber spine moter stegnth lower extremities , thigh and legs 5/5 Right side , 5/5 Left side Assessment and Plan (1) Herniated cervical disc Current Visit: Yes Status: Acute SNOMED Code(s): 824325288 (2) Bilateral occipital neuralgia Current Visit: Yes Status: Acute SNOMED Code(s): 40656989 Plan: Patient will be good candidate to have bilateral occipital nerve block, but the patient received Lovenox today , we cannot do occipital nerve block today, the course patient received Lovenox, it can be done tomorrow a.m., after we hold Lovenox 12 hours, Will evaluate visual response after the occipital nerve block if she continues to have neck pain and headache and numbness, then we can address the cervical herniated disc disease by doing cervical epidural steroid injections Past Medical History Past Medical History: Asthma, CVA/TIA, Hyperlipidemia, Hypertension Additional Past Medical History / Comment(s): Kidney stones, small stroke 2011, Hiatal hernia History of Any Multi-Drug Resistant Organisms: MRSA Year Discovered:: 12/11/2008 MDRO Source:: Abd wall wound Past Surgical History: Section, Cholecystectomy, Hysterectomy Additional Past Surgical History / Comment(s): Kidney stent 16 yrs ago on left due to kidney stone, incision and drainage of abscess on abdomen on left side MRSA Past Anesthesia/Blood Transfusion Reactions: No Reported Reaction Past Psychological History: Anxiety, Depression Smoking Status: Current some day smoker Past Alcohol Use History: Rare Past Drug Use History: None Reported - Past Family History Mother Family Medical History: Cancer, COPD, Diabetes Mellitus Medications and Allergies Home Medications Medication Instructions Recorded Confirmed Type ALPRAZolam [Xanax] 1 mg PO BID PRN 07/30/18 08/02/18 History Aspirin [Adult Low Dose Aspirin EC] 81 mg PO DAILY 07/30/18 08/02/18 History Chlorthalidone [Hygroton] 25 mg PO DAILY 07/30/18 08/02/18 History DULoxetine HCL [Cymbalta] 30 mg PO DAILY 07/30/18 08/02/18 History Famotidine [Pepcid] 20 mg PO BID 07/30/18 08/02/18 History Ibuprofen 800 mg PO Q8HR PRN 07/30/18 08/02/18 History Lisinopril 40 mg PO DAILY 07/30/18 08/02/18 History Metoprolol Tartrate [Lopressor] 50 mg PO BID 07/30/18 08/02/18 History amLODIPine [Norvasc] 10 mg PO DAILY 07/30/18 08/02/18 History Loperamide [Imodium] 2 mg PO QID #20 capsule 08/03/18 Rx methylPREDNISolone Dose Pack 4 mg PO DIRECTED #21 package 08/04/18 Rx [Medrol Dose Pack] Allergies Allergy/AdvReac Type Severity Reaction Status Date / Time No Known Allergies Allergy Verified 08/02/18 09:35 Physical Exam Vitals: Vital Signs Temp Pulse Resp BP BP Pulse Ox 08/04/18 12:57 67 17 08/04/18 12:53 97.8 F 67 17 113/59 95 08/04/18 10:51 75 15 08/04/18 08:00 75 15 08/04/18 07:53 97.2 F L 75 15 107/54 95 08/04/18 07:00 98.5 F 82 16 102/66 94 L 08/03/18 22:40 97.7 F 86 18 108/61 96 08/03/18 20:59 97.7 F 75 18 110/57 96 08/03/18 15:23 98.5 F 76 16 91/47 96 Intake and Output 08/03/18 08/04/18 08/04/18 22:59 06:59 14:59 Intake Total 240 Balance 240 Intake: Oral 240 Other: Voiding Method Toilet Toilet # Voids 1 1 Weight 100 kg Results CBC & Chem 7: 08/01/18 05:37 08/04/18 08:49 Labs: Abnormal Lab Results - Last 24 Hours (Table) 08/04/18 Range/Units 08:49 Chloride 108 H (98-107) mmol/L Creatinine 1.05 H (0.52-1.04) mg/dL Glucose 128 H (74-99) mg/dL PQRS Measure Charge Sheet Measure #130: Documentation of Current Meds in Medical Chart: Patient's medications documented in chart Measure #226: Tobacco Use: Screen & Cessation Intervention: Pt screened for tobacco use AND intervention given Measure #111: Pneumonia Vaccination: Pneumococcal vaccine NOT administered or previously given Measure #47: Advance Care Plan: Advance care planning discussed & documented, pt chose/unable to give Measure #412: Opioid Treatment Agreement: No documentation of signed opioid treatment agreement Measure #408: Opioid Therapy Follow-up Evaluation: Patient had NO f/u eval minimum every 3 months during opioid therapy Measure #317: Preventitive Care & Scrn High Bld Press & F/U: Pre-hypertensive or hypertensive BP documented, pt will f/u with PCP Measure #128: Body Mass Index (BMI) Screening & Follow-up: BMI documented ABOVE normal parameters - f/u documented Measure #131: Pain Assessment & Follow-up: Pain positive & plan documented, Follow-up scheduled Measure #431: Unhealthy Alcohol Use Preventative Care & Scrn: Patient not identified as an unhealthy alcohol user PQRS Narrative: Smoking Status Current some day smoker Do You Want the Pneumonia Vaccine Up to Date Vaccine AT THIS TIME? Blood Pressure [Left Arm 102/66 Sitting] Blood Pressure [Left Arm 113/59 Supine] Pain Intensity [Neck] 7 Pain Intensity [Generalized] 8 Pain Intensity [Head] 7 Pain Intensity 3 Pain Scale Used Numeric (1 - 10) Scale Used Numeric (1 - 10) Home Medications: Ambulatory Orders ALPRAZolam [Xanax] 1 mg PO BID PRN 07/30/18 Aspirin [Adult Low Dose Aspirin EC] 81 mg PO DAILY 07/30/18 Chlorthalidone [Hygroton] 25 mg PO DAILY 07/30/18 DULoxetine HCL [Cymbalta] 30 mg PO DAILY 07/30/18 Famotidine [Pepcid] 20 mg PO BID 07/30/18 Ibuprofen 800 mg PO Q8HR PRN 07/30/18 Lisinopril 40 mg PO DAILY 07/30/18 Metoprolol Tartrate [Lopressor] 50 mg PO BID 07/30/18 amLODIPine [Norvasc] 10 mg PO DAILY 07/30/18 Loperamide [Imodium] 2 mg PO QID #20 capsule 08/03/18 methylPREDNISolone Dose Pack [Medrol Dose Pack] 4 mg PO DIRECTED #21 package 08/04/18
== END 2018-08-04 14:52 | disposition home or self-care (01) ==
LOC: 3SCARD 19:23 → 4MS4W 08-03 20:07
PROVIDERS: ADMIT Internal Medicine; ATTEND Internal Medicine
DX: R07.89 Other chest pain (principal); E66.9 Obesity, unspecified; E78.1 Pure hyperglyceridemia; E78.5 Hyperlipidemia, unspecified; F17.210 Nicotine dependence, cigarettes, uncomplicated; F32.9 Major depressive disorder, single episode, unspecified; F41.9 Anxiety disorder, unspecified; G89.29 Other chronic pain; I10 Essential (primary) hypertension; J45.909 Unspecified asthma, uncomplicated; Z68.34 Body mass index [BMI] 34.0-34.9, adult; M51.9 Unspecified thoracic, thoracolumbar and lumbosacral intervertebral disc disorder; M50.122 Cervical disc disorder at C5-C6 level with radiculopathy; M54.81 Occipital neuralgia; M75.100 Unspecified rotator cuff tear or rupture of unspecified shoulder, not specified as traumatic; Z79.82 Long term (current) use of aspirin; Z82.5 Family history of asthma and other chronic lower respiratory diseases; Z83.3 Family history of diabetes mellitus; Z86.73 Personal history of transient ischemic attack (TIA), and cerebral infarction without residual deficits; Z87.442 Personal history of urinary calculi; Z90.710 Acquired absence of both cervix and uterus
CPT/HCPCS: 96376 ×2; 96372 ×6; 96374; 96375 ×2; 93306; 93351; 97116 ×2; 97161; 80061; 80048 ×5; 80076; 85652; 84443; 83735; 84484 ×2; 85025 ×2; 85610; 85730; 87324; 83036; 71046; 93971; 93880; 93970; 70551; 72141; G0378 ×7; G0379; S4990 ×5; J1250; J2270 ×2; J1644 ×2; J1650 ×4; J1885; J1170 ×2

== ENCOUNTER → 2019-01-07 | Outpatient (CLI) | payer OTHER ==
--- NOTE | 2019-01-07 15:37 | CT ---
EXAMINATION TYPE: CT chest wo con DATE OF EXAM: 01/07/2019 COMPARISON: None HISTORY: right sided chest pain, recent flu and pneumonia CT DLP: 646 mGycm, Automated exposure control for dose reduction was used. CONTRAST: None TECHNIQUE: Axial images were obtained at 5 mm thick sections. Reconstructed images are reviewed on [employer] computer in the coronal plane. FINDINGS: Portion of the thyroid visualized is normal. There is a 0.7 cm calcification in the posterior right hilar region. Series 4 image 31 likely is a gr anuloma. No enlarged mediastinal or hilar adenopathy is evident. The ascending aorta diameter at the level o f the main pulmonary artery is 3.9 cm. The main pulmonary artery diameter at the bifurcation is 2.[address] sections are obtained through the upper abdomen. There is a 0.[address] renal [address] one in the superior pole right kidney. IMPRESSIONS: 1. Calcified nodule posterior right mid lung
== END | disposition home or self-care (01) ==
LOC: RADCTMAIN 15:05
PROVIDERS: ATTEND Family Medicine
DX: R91.1 Solitary pulmonary nodule (principal); R07.9 Chest pain, unspecified
CPT/HCPCS: 71250

== ENCOUNTER 2019-05-09 20:49 | Emergency (ER) | payer OTHER ==
[2019-05-09] MEDS ORDERED: NITROGLYCERIN SL TABS 0.4 MG TAB SUBLINGUAL STA (21:50)
[2019-05-09] MEDS ORDERED: METOPROLOL TARTRATE 5 MG/5 ML VIAL IVP STA (21:51)
--- NOTE | 2019-05-09 21:56 | ED ---
General Adult HPI - General Chief complaint: Dizziness Stated complaint: Chest Pain Time Seen by Provider: 05/09/19 21:16 Source: patient Mode of arrival: wheelchair Limitations: no limitations - History of Present Illness Initial comments: This patient is a 44-year-old woman who presents with complaints that started on Thursday. Patient states she was in her usual state of health until Thursday afternoon when she noticed she was having some substernal chest pains that were just mild and she states she was not very concerned about it. The pains co ntinued until this evening when they started becoming more severe. She describes it as an aching feeling. She has not noted worsening or relieving. She states the pain is moderate to severe now. She has not had associated symptoms. In addition, she has been having a little bit of headache since later Thursday night. She describes it as a right sided, retro-orbital pain. It is throbbing. It is about 8 out of 10 severity. She states she used to get migraine headaches back when she was and that they would be this severe but she has not had one in a number of years. She has not had any associated symptoms, no neurologic symptoms. No fever or chills. No neck pain or stiffness. Onset/Timin -: days(s) Location: head, chest Radiation: non-radiation Severity scale (1-10): 8 Quality: other Consistency: constant Improves with: none Worsens with: none Associated Symptoms: nausea/vomiting Treatments Prior to Arrival: none - Related Data Home Medications Medication Instructions Recorded Confirmed ALPRAZolam [Xanax] 1 mg PO BID PRN 07/30/18 08/02/18 Aspirin [Adult Low Dose Aspirin EC] 81 mg PO DAILY 07/30/18 08/02/18 Chlorthalidone [Hygroton] 25 mg PO DAILY 07/30/18 08/02/18 DULoxetine HCL [Cymbalta] 30 mg PO DAILY 07/30/18 08/02/18 Famotidine [Pepcid] 20 mg PO BID 07/30/18 08/02/18 Ibuprofen 800 mg PO Q8HR PRN 07/30/18 08/02/18 Lisinopril 40 mg PO DAILY 07/30/18 08/02/18 Metoprolol Tartrate [Lopressor] 50 mg PO BID 07/30/18 08/02/18 amLODIPine [Norvasc] 10 mg PO DAILY 07/30/18 08/02/18 Previous Rx's Medication Instructions Recorded Loperamide [Imodium] 2 mg PO QID #20 capsule 08/03/18 methylPREDNISolone Dose Pack 4 mg PO DIRECTED #21 package 08/04/18 [Medrol Dose Pack] Allergies Allergy/AdvReac Type Severity Reaction Status Date / Time No Known Allergies Allergy Verified 05/09/19 22:30 Review of Systems ROS Statement: Those systems with pertinent positive or pertinent negative responses have been documented in the HPI. ROS Other: All systems not noted in ROS Statement are negative. Constitutional: Denies: fever, chills Eyes: Denies: eye pain Respiratory: Denies: cough, dyspnea Cardiovascular: Reports: as per HPI, chest pain. Denies: palpitations, edema Gastrointestinal: Denies: abdominal pain, nausea, vomiting Genitourinary: Denies: dysuria, hematuria Musculoskeletal: Denies: back pain Skin: Denies: rash Neurological: Reports: headache. Denies: weakness, numbness, paresthesias, confusion Past Medical History Past Medical History: Asthma, CVA/TIA, Hyperlipidemia, Hypertension Additional Past Medical History / Comment(s): Kidney stones, small stroke 2011, Hiatal hernia, History of Any Multi-Drug Resistant Organisms: MRSA Date of last positivie culture/infection: 12/11/2008, MDRO Source:: Abd wall wound Past Surgical History: Section, Cholecystectomy, Hysterectomy Additional Past Surgical History / Comment(s): Kidney stent 16 yrs ago on left due to kidney stone, incision and drainage of abscess on abdomen on left side MRSA, Past Anesthesia/Blood Transfusion Reactions: No Reported Reaction Past Psychological History: Anxiety, Depression Smoking Status: Current some day smoker Past Alcohol Use History: None Reported Past Drug Use History: None Reported - Past Family History Mother Family Medical History: Cancer, COPD, Diabetes Mellitus General Exam Limitations: no limitations General appearance: alert, anxious Head exam: Present: atraumatic, normocephalic Eye exam: Present: normal appearance. Absent: scleral icterus, conjunctival in jection ENT exam: Present: normal oropharynx Neck exam: Present: normal inspection, full ROM Respiratory exam: Present: normal lung sounds bilaterally. Absent: respiratory distress, wheezes, rales, rhonchi, stridor Cardiovascular Exam: Present: regular rate, normal rhythm, normal heart sounds. Absent: systolic murmur, diastolic murmur, rubs, gallop GI/Abdominal exam: Present: soft. Absent: distended, tenderness, guarding, rebound, rigid, mass Extremities exam: Present: normal inspection, normal capillary refill. Absent: pedal edema, calf tenderness Back exam: Present: normal inspection. Absent: CVA tenderness (R), CVA tenderness (L) Neurological exam: Present: alert, oriented X3, CN II-XII intact. Absent: motor sensory deficit Skin exam: Present: warm, dry, intact, normal color. Absent: rash Course Vital Signs 05/09/19 05/09/19 05/09/19 21:06 22:09 23:00 Temperature 98.3 F Pulse Rate 73 67 77 Respiratory 18 18 18 Rate Blood Pressure 150/93 143/84 166/95 O2 Sat by Pulse 98 97 98 Oximetry 05/10/19 05/10/19 05/10/19 01:00 02:00 02:52 Temperature 97.7 F Pulse Rate 65 63 87 Respiratory 20 18 20 Rate Blood Pressure 140/79 150/84 152/89 O2 Sat by Pulse 98 97 97 Oximetry EKG Findings - EKG Results: EKG: interpreted by ERMD, sinus rhythm (Rate 70 bpm), normal axis, normal QRS (LVH) - Blocks, [place], Hypertrophy, ST Abn: Chamber hypertrophy or enlargement: left ventricular hypertrophy or enlargement (LVE) (LVH) Repolarization changes or abnormalities: Q-T interval prolongation Medical Decision Making - Lab Data Result diagrams: 05/09/19 22:13 05/09/19 22:13 Lab Results 05/09/19 05/09/19 05/09/19 Range/Units 22:13 22:13 22:13 WBC 8.9 (3.8-10.6) k/uL RBC 4.51 (3.80-5.40) m/uL Hgb 13.2 (11.4-16.0) gm/dL Hct 39.4 (34.0-46.0) % MCV 87.5 (80.0-100.0) fL MCH 29.2 (25.0-35.0) pg MCHC 33.4 (31.0-37.0) g/dL RDW 15.2 (11.5-15.5) % Plt Count 212 (150-450) k/uL Neutrophils % 48 % Lymphocytes % 43 % Monocytes % 5 % Eosinophils % 3 % Basophils % 0 % Neutrophils # 4.2 (1.3-7.7) k/uL Lymphocytes # 3.8 (1.0-4.8) k/uL Monocytes # 0.4 (0-1.0) k/uL Eosinophils # 0.2 (0-0.7) k/uL Basophils # 0.0 (0-0.2) k/uL PT 9.5 (9.0-12.0) sec INR 0.9 (<1.2) APTT 31.4 H (22.0-30.0) sec D-Dimer 0.48 (<0.60) mg/L FEU Sodium 141 (137-145) mmol/L Potassium 3.7 (3.5-5.1) mmol/L Chloride 110 H (98-107) mmol/L Carbon Dioxide 25 (22-30) mmol/L Anion Gap 6 mmol/L BUN 18 H (7-17) mg/dL Creatinine 0.81 (0.52-1.04) mg/dL Est GFR (CKD-EPI)AfAm >90 (>60 ml/min/1.73 sqM) Est GFR (CKD-EPI)NonAf 89 (>60 ml/min/1.73 sqM) Glucose 99 (74-99) mg/dL Calcium 9.0 (8.4-10.2) mg/dL Magnesium 2.2 (1.6-2.3) mg/dL Total Bilirubin 0.2 (0.2-1.3) mg/dL AST 20 (14-36) U/L ALT 19 (9-52) U/L Alkaline Phosphatase 80 (38-126) U/L Troponin I (0.000-0.034) ng/mL Total Protein 6.6 (6.3-8.2) g/dL Albumin 3.9 (3.5-5.0) g/dL 05/09/19 Range/Units 22:13 WBC (3.8-10.6) k/uL RBC (3.80-5.40) m/uL Hgb (11.4-16.0) gm/dL Hct (34.0-46.0) % MCV (80.0-100.0) fL MCH (25.0-35.0) pg MCHC (31.0-37.0) g/dL RDW (11.5-15.5) % Plt Count (150-450) k/uL Neutrophils % % Lymphocytes % % Monocytes % % Eosinophils % % Basophils % % Neutrophils # (1.3-7.7) k/uL Lymphocytes # (1.0-4.8) k/uL Monocytes # (0-1.0) k/uL Eosinophils # (0-0.7) k/uL Basophils # (0-0.2) k/uL PT (9.0-12.0) sec INR (<1.2) APTT (22.0-30.0) sec D-Dimer (<0.60) mg/L FEU Sodium (137-145) mmol/L Potassium (3.5-5.1) mmol/L Chloride (98-107) mmol/L Carbon Dioxide (22-30) mmol/L Anion Gap mmol/L BUN (7-17) mg/dL Creatinine (0.52-1.04) mg/dL Est GFR (CKD-EPI)AfAm (>60 ml/min/1.73 sqM) Est GFR (CKD-EPI)NonAf (>60 ml/min/1.73 sqM) Glucose (74-99) mg/dL Calcium (8.4-10.2) mg/dL Magnesium (1.6-2.3) mg/dL Total Bilirubin (0.2-1.3) mg/dL AST (14-36) U/L ALT (9-52) U/L Alkaline Phosphatase (38-126) U/L Troponin I <0.012 (0.000-0.034) ng/mL Total Protein (6.3-8.2) g/dL Albumin (3.5-5.0) g/dL Disposition Clinical Impression: Migraine, Chest pain Disposition: HOME SELF-CARE Condition: Good Instructions (If sedation given, give patient instructions): Chest Pain (ED), Migraine Headache (ED) Is patient prescribed a controlled substance at d/c from ED?: No Referrals: Irvin Haile MD [Primary Care Provider] - 1-2 days
[2019-05-09 22:28] LABS: Basophils % (A) 0 %; Eosinophils # (A) 0.2 k/uL (0-0.7); Eosinophils % (A) 3 %; HCT 39.4 % (34.0-46.0); HGB 13.2 gm/dL (11.4-16.0); Lymphocytes # (A) 3.8 k/uL (1.0-4.8); Lymphocytes % (A) 43 %; MCH 29.2 pg (25.0-35.0); MCHC 33.4 g/dL (31.0-37.0); MCV 87.5 fL (80.0-100.0); Monocytes # (A) 0.4 k/uL (0-1.0); Monocytes % (A) 5 %; Neutrophils # (A) 4.2 k/uL (1.3-7.7); Neutrophils % (A) 48 %; Platelet Count 212 k/uL (150-450); RBC 4.51 m/uL (3.80-5.40); RDW 15.2 % (11.5-15.5); WBC 8.9 k/uL (3.8-10.6)
[2019-05-09 22:38] LABS: ALT 19 U/L (9-52); AST 20 U/L (14-36); African American GFR (CKD) >90 (>60 ml/min/1.73 sqM); Albumin 3.9 g/dL (3.5-5.0); Alkaline Phosphatase 80 U/L (38-126); Anion Gap 6 mmol/L; Blood Urea Nitrogen 18 mg/dL (7-17); Carbon Dioxide 25 mmol/L (22-30); Chloride 110 mmol/L (98-107); Glucose 99 mg/dL (74-99); Magnesium 2.2 mg/dL (1.6-2.3); Non-African American GFR(CKD) 89 (>60 ml/min/1.73 sqM); Potassium 3.7 mmol/L (3.5-5.1); Sodium 141 mmol/L (137-145); Total Bilirubin 0.2 mg/dL (0.2-1.3); Total Protein 6.6 g/dL (6.3-8.2)
[2019-05-09 22:52] LABS: D-Dimer 0.48 mg/L FEU (<0.60); INR 0.9 (<1.2); Partial Thromboplastin Time 31.4 sec (22.0-30.0); Prothrombin Time 9.5 sec (9.0-12.0)
--- NOTE | 2019-05-09 23:03 | XR ---
EXAM: XR Chest, 2 Views CLINICAL HISTORY: ITS.REASON XR Reason: Chest Pain TECHNIQUE: Frontal and lateral views of the chest. COMPARISON: 07/31/18 FINDINGS: Lungs: Unremarkable. No consolidation. Pleural space: Unremarkable. No pneumothorax. Heart: Unremarkable. No cardiomegaly. Mediastinum: Unremarkable. Bones/joints: Unremarkable. IMPRESSION: No acute findings.
[2019-05-09] MEDS ORDERED: METOCLOPRAMIDE 5 MG/ML 2 ML VIAL IVP STA (23:05)
[2019-05-09] MEDS ORDERED: SODIUM CHLORIDE 0.9% 1,000 ML IV ONE (23:05)
[2019-05-09] MEDS ORDERED: diphenhydrAMINE 50 MG/ML 1 ML VIAL IVP STA (23:45)
[2019-05-09] MEDS ORDERED: hydrALAZINE HCL 20 MG/ML 1 ML VIAL IVP STA (23:45)
--- NOTE | 2019-05-10 00:51 | CT ---
EXAM: CT Head Without Intravenous Contrast CLINICAL HISTORY: Pain TECHNIQUE: Axial computed tomography images of the head/brain without intravenous contrast. CTDI is 49.1 mGy and DLP is 1087.4 mGy-cm. This CT exam was performed using one or more of the following dose reduction techniques: automated exposure control, adjustment of the mA and/or kV according to patient size, and/or use of iterative reconstruction technique. COMPARISON: 02/12/17 FINDINGS: Brain: Unremarkable. No hemorrhage. No significant white matter disease. No edema. Ventricles: Unremarkable. No ventriculomegaly. Bones/joints: Unremarkable. No acute fracture. Soft tissues: Unremarkable. Sinuses: Unremarkable as visualized. No acute sinusitis. Mastoid air cells: Unremarkable as visualized. No mastoid effusion. IMPRESSION: No acute abnormality. No change from prior study
[2019-05-10 02:53] VITALS: BP 152/89; PULSE 87; RESP 20; TEMP 97.7
== END 2019-05-10 02:53 | disposition home or self-care (01) ==
LOC: EC 20:49
DX: G43.909 Migraine, unspecified, not intractable, without status migrainosus (principal); R07.9 Chest pain, unspecified; F17.200 Nicotine dependence, unspecified, uncomplicated; F41.9 Anxiety disorder, unspecified; F32.9 Major depressive disorder, single episode, unspecified; E78.5 Hyperlipidemia, unspecified; I10 Essential (primary) hypertension; Z79.82 Long term (current) use of aspirin; Z79.899 Other long term (current) drug therapy; Z86.14 Personal history of Methicillin resistant Staphylococcus aureus infection; Z86.73 Personal history of transient ischemic attack (TIA), and cerebral infarction without residual deficits
CPT/HCPCS: 36415; 93005; 85379; 80053; 83735; 84484; 85025; 85610; 85730; 71046; 70450; 96374; 96375 ×3; 96361; 99284; J0360; J1200; J2765

== ENCOUNTER 2020-05-22 23:35 | Inpatient (IN) | payer OTHER ==
[2020-05-23] MEDS ORDERED: ASPIRIN 81 MG PO STA (00:03)
[2020-05-23] MEDS ORDERED: SODIUM CHLORIDE 0.9% 1,000 ML IV STA (00:03)
[2020-05-23 00:18] LABS: Glucose,Whole Blood 194 mg/dL (75-99)
[2020-05-23] MEDS ORDERED: ENALAPRILAT 1.25 MG/ML 1 ML VIAL IVP STA (00:28)
--- NOTE | 2020-05-23 00:28 | ED ---
Chest Pain HPI - General Chief Complaint: Chest Pain Stated Complaint: High BP Time Seen by Provider: 05/23/20 00:03 Source: patient Mode of arrival: ambulatory Limitations: no limitations - History of Present Illness Initial Comments: Mariola is a 45-year-old female who presents the ER today for evaluation of chest pressure, uncontrolled hypertension and uncontrolled diabetes. Patient reports that prior to last week she didn't have any medical care, last week she was admitted at [facility] diagnosed with hypertension, enlarged heart, diabetes. She was discharged home with prescriptions for multiple medications but reports she has no insurance so has not had any of those medications since her discharge on May 21. Patient reports that tonight she feels some tightness in her chest and some epigastric discomfort and feels like she can't catch her breath. She states she feels like her blood pressure is high and she is very thirsty continuously drinking water and is concerned her sugar is high. Patient denies any recent fevers, chills, cough or illness. - Related Data Home Medications Medication Instructions Recorded Confirmed ALPRAZolam [Xanax] 1 mg PO BID PRN 07/30/18 08/02/18 Aspirin [Adult Low Dose Aspirin EC] 81 mg PO DAILY 07/30/18 08/02/18 Chlorthalidone [Hygroton] 25 mg PO DAILY 07/30/18 08/02/18 DULoxetine HCL [Cymbalta] 30 mg PO DAILY 07/30/18 08/02/18 Famotidine [Pepcid] 20 mg PO BID 07/30/18 08/02/18 Ibuprofen 800 mg PO Q8HR PRN 07/30/18 08/02/18 Metoprolol Tartrate [Lopressor] 50 mg PO BID 07/30/18 08/02/18 amLODIPine [Norvasc] 10 mg PO DAILY 07/30/18 08/02/18 lisinopriL 40 mg PO DAILY 07/30/18 08/02/18 Previous Rx's Medication Instructions Recorded Loperamide [Imodium] 2 mg PO QID #20 capsule 08/03/18 methylPREDNISolone Dose Pack 4 mg PO DIRECTED #21 package 08/04/18 [Medrol Dose Pack] Allergies Allergy/AdvReac Type Severity Reaction Status Date / Time No Known Allergies Allergy Verified 05/22/20 23:42 Review of Systems ROS Statement: Those systems with pertinent positive or pertinent negative responses have been documented in the HPI. ROS Other: All systems not noted in ROS Statement are negative. EKG Findings - EKG Comments: EKG Findings:: EKG was obtained due to complaint of chest pain, EKG was obtained at 12:04 AM, rate is 99 rhythm is sinus with effort axis, left ventricular hypertrophy, SD 140, QRS 84, QTC is mildly prolonged at [address] elevations or depressions no evidence of acute ischemia or infarction. Past Medical History Past Medical History: Asthma, CVA/TIA, Hyperlipidemia, Hypertension Additional Past Medical History / Comment(s): Kidney stones, small stroke 2011, Hiatal hernia, History of Any Multi-Drug Resistant Organisms: MRSA Date of last positivie culture/infection: 12/11/2008, MDRO Source:: Abd wall wound Past Surgical History: Section, Cholecystectomy, Hysterectomy Additional Past Surgical History / Comment(s): Kidney stent 16 yrs ago on left due to kidney stone, incision and drainage of abscess on abdomen on left side MRSA, Past Anesthesia/Blood Transfusion Reactions: No Reported Reaction Past Psychological History: Anxiety, Depression Smoking Status: Current every day smoker Past Alcohol Use History: None Reported Past Drug Use History: None Reported - Past Family History Mother Family Medical History: Cancer, COPD, Diabetes Mellitus General Exam - General Exam Comments Initial Comments: Physical Exam GENERAL: Patient is well-developed and well-nourished. Patient is nontoxic and well-hydrated and is in no distress. HENT: Normocephalic, Atraumatic. EYES: PERRL, EOMI PULMONARY: Unlabored respirations. CTAB CARDIOVASCULAR: RRR Warm and well perfused extremities No murmur rub or gallop ABDOMEN: Non-distended SKIN: No rashes or bruising : Deferred NEUROLOGIC: Alert and oriented Normal speech Normal gait MUSCULOSKELETAL: Moving all extremities with no apparent injury PSYCHIATRIC: No SI/HI Limitations: no limitations Course Vital Signs 05/22/20 05/23/20 05/23/20 23:38 00:23 00:43 Temperature 98.3 F Pulse Rate 104 H 96 93 Pulse Rate [ Left Pulse Oximetery] Respiratory 20 24 24 Rate Blood Pressure 197/114 197/115 191/115 Blood Pressure [Left Arm] O2 Sat by Pulse 97 96 96 Oximetry 05/23/20 05/23/20 05/23/20 01:36 02:24 02:30 Temperature Pulse Rate 91 99 87 Pulse Rate [ Left Pulse Oximetery] Respiratory 19 18 Rate Blood Pressure 171/104 191/118 163/110 Blood Pressure [Left Arm] O2 Sat by Pulse 97 94 L Oximetry 05/23/20 05/23/20 05/23/20 02:40 02:42 02:50 Temperature Pulse Rate 80 82 Pulse Rate [ Left Pulse Oximetery] Respiratory 20 Rate Blood Pressure 145/94 140/90 134/86 Blood Pressure [Left Arm] O2 Sat by Pulse 94 L Oximetry 05/23/20 05/23/20 05/23/20 02:52 03:00 03:33 Temperature Pulse Rate 73 Pulse Rate [ Left Pulse Oximetery] Respiratory 17 Rate Blood Pressure 134/86 121/79 123/74 Blood Pressure [Left Arm] O2 Sat by Pulse 94 L Oximetry 05/23/20 05/23/20 04:07 04:09 Temperature 98.1 F Pulse Rate 86 Pulse Rate [ 80 Left Pulse Oximetery] Respiratory 18 Rate Blood Pressure 112/72 Blood Pressure 117/70 [Left Arm] O2 Sat by Pulse 96 95 Oximetry Chest Pain [facility] Patient was seen and evaluated history is obtained from patient 45-year-old female with poorly controlled hypertension presenting today for chest pain and concern that she is hyperglycemic Patient was noted to be hypertensive on arrival EKG was nonischemic with evidence of LVH Patient received enalapril IV and clonidine with no improvement in her blood pressure Patient was placed on a labetalol drip Patient's blood pressure improved significantly with labetalol,, blood pressure becoming to low therefore labetalol drip was dropped As needed antihypertensives were ordered Patient will be admitted to the floor for hypertensive emergency and troponin Serial troponins and a consult to cardiology were placed Critical Care Time Critical Care Time: Yes Total Critical Care Time: 30 Critical Care Time: Critical Care Time 30min Critical care time was exclusive of separately billable procedures and treating other patients and teaching time. Critical care was necessary to treat or prevent imminent or life-threatening deterioration. Given the critical condition in which the patient arrived, the patient was immediately assessed by myself and the nurse, and cardiac monitoring initiated due to the potential for rapid decompensation of the patient's clinical condition. During the course of the patients stay, I spent a considerable amount of time at the bedside performing serial re-evaluations of the patient's hemodynamic and clinical status because of the recognized potential threat to life or limb in this condition. I then had a chance to review not only all of the available current laboratory and radiographic studies obtained today, but I also reviewed old records available to me at the time. Additionally, any ancillary information available including press tender star signal records were reviewed. Sequential vital signs were obtained. Disposition Clinical Impression: Hypertensive emergency, Diabetes Disposition: ADMITTED IP TO THIS HOSP Condition: Serious Is patient prescribed a controlled substance at d/c from ED?: No
--- NOTE | 2020-05-23 00:42 | XR ---
EXAMINATION TYPE: XR chest 2V DATE OF EXAM: 05/23/2020 COMPARISON: 05/09/2019 HISTORY: Chest pain TECHNIQUE: 2 views FINDINGS: Heart and mediastinum are normal. Lungs are clear. Costophrenic angles are fairly clear. Th ere are no hilar masses. There are chest leads. IMPRESSION: No active cardiopulmonary disease. No change.
[2020-05-23 00:43] LABS: ALT 29 U/L (4-34); AST 30 U/L (14-36); African American GFR (CKD) >90 (>60 ml/min/1.73 sqM); Albumin 3.1 g/dL (3.5-5.0); Alkaline Phosphatase 139 U/L (38-126); Anion Gap 14 mmol/L; Blood Urea Nitrogen 12 mg/dL (7-17); Calcium 8.8 mg/dL (8.4-10.2); Carbon Dioxide 13 mmol/L (22-30); Chloride 103 mmol/L (98-107); Magnesium 1.6 mg/dL (1.6-2.3); Non-African American GFR(CKD) >90 (>60 ml/min/1.73 sqM); Potassium 4.5 mmol/L (3.5-5.1); Sodium 130 mmol/L (137-145); Total Bilirubin 0.8 mg/dL (0.2-1.3)
[2020-05-23 00:47] LABS: Basophils % (A) 0 %; Eosinophils # (A) 0.2 k/uL (0-0.7); Eosinophils % (A) 2 %; HCT 37.1 % (34.0-46.0); Lymphocytes # (A) 3.5 k/uL (1.0-4.8); Lymphocytes % (A) 37 %; MCV 86.7 fL (80.0-100.0); Monocytes # (A) 0.4 k/uL (0-1.0); Monocytes % (A) 4 %; Neutrophils # (A) 5.3 k/uL (1.3-7.7); Neutrophils % (A) 55 %; Platelet Count 171 k/uL (150-450); RBC 4.27 m/uL (3.80-5.40); RDW 13.5 % (11.5-15.5); WBC 9.6 k/uL (3.8-10.6)
[2020-05-23 00:54] LABS: HGB 12.3 gm/dL (11.4-16.0); MCH 28.8 pg (25.0-35.0); MCHC 33.3 g/dL (31.0-37.0)
[2020-05-23 01:06] LABS: Glucose 166 mg/dL (74-99)
[2020-05-23] MEDS ORDERED: cloNIDine HCL 0.1 MG TAB PO STA (01:34)
[2020-05-23] MEDS ORDERED: MORPHINE SULFATE 4 MG/ML SYRINGE IVP STA (02:02)
[2020-05-23] MEDS ORDERED: LABETALOL 200 MG in SODIUM CHLORIDE 0.9% 160 ML IV ONE (02:15)
[2020-05-23 02:22] LABS: Appearance,Urine Clear (Clear); Bilirubin,Urine Negative (Negative); Blood,Urine Negative (Negative); Color,Urine Light Yellow; Glucose,Urine (UA) Negative (Negative); Ketones,Urine Negative (Negative); Leukocyte Esterase,Urine Negative (Negative); Nitrite,Urine Negative (Negative); Protein,Urine Negative (Negative); Specific Gravity,Urine 1.007 (1.001-1.035); Urobilinogen,Urine <2.0 mg/dL (<2.0)
[2020-05-23] MEDS ORDERED: hydrALAZINE HCL 20 MG/ML 1 ML VIAL IVP PRN (03:06)
[2020-05-23] MEDS ORDERED: cloNIDine HCL 0.1 MG TAB PO PRN (03:12)
[2020-05-23 04:08] LABS: Glucose,Whole Blood 237 mg/dL (75-99)
[2020-05-23] MEDS: MORPHINE SULFATE 4 MG/ML SYRINGE IVP PRN ×3 (04:24→15:45)
[2020-05-23 06:34] LABS: Glucose,Whole Blood 284 mg/dL (75-99)
[2020-05-23] MEDS: ALPRAZolam 1 MG TAB PO PRN ×2 (06:37→19:02)
[2020-05-23] MEDS: INSULIN ASPART (NovoLOG) 100 UNIT/ML VIAL SQ SCH ×5 (06:37→20:06)
[2020-05-23] MEDS ORDERED: KETOROLAC 15 MG/ML 1 ML VIAL IVP STA (08:19)
[2020-05-23] MEDS: NITROGLYCERIN SL TABS 0.4 MG TAB SUBLINGUAL PRN ×2 (08:32→08:42)
[2020-05-23] MEDS ORDERED: lisinopriL 10 MG TAB PO SCH (09:00)
[2020-05-23] MEDS: hydrALAZINE HCL 50 MG TAB PO SCH ×3 (10:02→20:05)
[2020-05-23] MEDS: METOPROLOL TARTRATE 50 MG TAB PO SCH ×2 (10:02→20:05)
[2020-05-23] MEDS: ASPIRIN 81 MG PO SCH (10:02)
[2020-05-23] MEDS: cloNIDine HCL 0.1 MG TAB PO SCH ×2 (10:02→20:05)
[2020-05-23] MEDS: amLODIPine 10 MG TAB PO SCH (10:02)
[2020-05-23] MEDS: lisinopriL 20 MG TAB PO SCH (10:02)
--- NOTE | 2020-05-23 10:42 | P.CRDCN ---
History of Present Illness Consult date: 05/23/20 History of present illness: CHIEF COMPLAINT: Hypertension HISTORY OF PRESENT ILLNESS: 45-year-old female with past medical history of hypertension and diabetes mellitus who presented to the emergency room secondary to hypertension. 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 Patient states she was recently hospitalized in [place] secondary to high blood pressure. She was prescribed and hypertensive medications at discharge but was unable to have these filled because she has no insurance. Her daughter lives in [place] and recently had a baby and she has been living either in [place] or in [place]. Patient examined this point the bedside. She reports pain in the middle of her chest that is worse with deep inspiration. Patient also reports pain with palpation. She denies shortness of breath. Patient reports smoking cigarettes and states she is down to half a pack a day, from 1 pack per day. She reports a family history of diabetes in her mother and father. She also reports her mother had a history of CHF. DIAGNOSTICS: EKG reveals normal sinus rhythm. Left ventricular hypertrophy Chest xray no active cardiopulmonary disease Laboratory data: WBC 9.6. Hemoglobin 12.3. Platelet count 171. Sodium 130. Potassium 4.5. BUN 12. Creatinine 0.69. Magnesium 1.6. Troponin 0.036. 0.033. 0.025. Current home cardiac medications include: none secondary to no insurance per patient Patient had a dobutamine stress test in 2018 which was negative REVIEW OF SYSTEMS: CONSTITUTIONAL: Denies fever or chills. HEENT: Denies blurred vision, vision changes, or eye pain. Denies hemoptysis CARDIOVASCULAR: Reports chest pain. Denies orthopnea, PND or palpitations RESPIRATORY: No shortness of breath. GASTROINTESTINAL: Denies abdominal pain. Denies nausea or vomiting. HEMATOLOGIC: Denies bleeding disorders. GENITOURINARY: Denies any blood in urine. SKIN: Denies pruitis. Denies rash. PHYSICAL EXAM: VITAL SIGNS: Reviewed. GENERAL: Well-developed in no acute distress. HEENT: Head is normocephalic. Pupils are equal, round. Sclerae anicteric. Mucous membranes of the mouth are moist. Neck supple. No JVD or thyromegaly LUNGS: Respirations even and unlabored. Lungs essentially clear to auscultation bilaterally. HEART: Regular rate and rhythm. S1 and S2 heard. Patient with tenderness upon chest wall palpation. ABDOMEN: Soft. Nontender. EXTREMITIES: Normal range of motion. No clubbing or cyanosis. Peripheral pulses intact. No lower extremity edema NEUROLOGIC: Awake and alert. Oriented x 3. ASSESSMENT: Atypical chest pain, no evidence of acute coronary syndrome, suspect muscle skeletal in nature Hypertension, uncontrolled Diabetes mellitus, type II Medical noncompliance secondary to no insurance/financial difficulty Nicotine dependence PLAN: Toradol 15mg x 1 for pain Continue Norvasc 10 mg daily, aspirin 81 mg daily, lisinopril 40 mg daily, and Lopressor 50 mg twice a day Add Catapres 0.1 mg twice a day Hydralazine 50 mg by mouth 3 times a day Smoking cessation encouraged Obtain 2-D echo to assess cardiac structure and function Case management/social work on consult secondary to lack of insurance/financial difficulty Nurse practitioner note has been reviewed by physician. Signing provider agrees with the documented findings, assessment, and plan of care. Past Medical History Past Medical History: Asthma, CVA/TIA, Hyperlipidemia, Hypertension Additional Past Medical History / Comment(s): Kidney stones, small stroke 2011, Hiatal hernia, History of Any Multi-Drug Resistant Organisms: MRSA Date of last positivie culture/infection: 12/11/2008, MDRO Source:: Abd wall wound Past Surgical History: Section, Cholecystectomy, Hysterectomy Additional Past Surgical History / Comment(s): Kidney stent 16 yrs ago on left due to kidney stone, incision and drainage of abscess on abdomen on left side MRSA, Past Anesthesia/Blood Transfusion Reactions: No Reported Reaction Past Psychological History: Anxiety, Depression Smoking Status: Current every day smoker Past Alcohol Use History: None Reported Past Drug Use History: None Reported - Past Family History Mother Family Medical History: Cancer, COPD, Diabetes Mellitus Medications and Allergies Home Medications Medication Instructions Recorded Confirmed Type ALPRAZolam [Xanax] 1 mg PO BID PRN 07/30/18 05/23/20 History HYDROcodone/APAP 5-325MG [[place] 1 tab PO DAILY PRN 05/23/20 05/23/20 History 5-325] Allergies Allergy/AdvReac Type Severity Reaction Status Date / Time No Known Allergies Allergy Verified 05/23/20 09:02 Physical Exam Vitals: Vital Signs Temp Pulse Pulse Resp BP BP Pulse Ox 05/23/20 07:50 98.1 F 89 16 143/97 97 05/23/20 04:36 80 18 05/23/20 04:09 98.1 F 80 18 117/70 95 05/23/20 04:07 86 112/72 96 05/23/20 03:33 73 17 123/74 94 L 05/23/20 03:00 121/79 05/23/20 02:52 134/86 05/23/20 02:50 134/86 05/23/20 02:42 82 20 140/90 94 L 05/23/20 02:40 80 145/94 05/23/20 02:30 87 163/110 05/23/20 02:24 99 18 191/118 94 L 05/23/20 01:36 91 19 171/104 97 05/23/20 00:43 93 24 191/115 96 05/23/20 00:23 96 24 197/115 96 05/22/20 23:38 98.3 F 104 H 20 197/114 97 Intake and Output 05/22/20 05/23/20 05/23/20 22:59 06:59 14:59 Intake Total 88 Balance 88 Intake: Intake, IV Titration 88 Amount Labetalol 200 mg In 88 Sodium Chloride 0.9% 160 ml @ 2 MG/MIN 120 mls/hr IV .Q1H40M ONE Rx#: [id number] Other: Voiding Method Toilet # Voids 1 Weight 76.2 kg Results 05/23/20 00:19 05/23/20 00:19 Cardiac Enzymes 05/23/20 05/23/20 05/23/20 Range/Units 00:19 00:19 04:06 AST 30 (14-36) U/L Troponin I 0.036 H* 0.033 (0.000-0.034) ng/mL 05/23/20 Range/Units 06:30 AST (14-36) U/L Troponin I 0.025 (0.000-0.034) ng/mL CBC 05/23/20 Range/Units 00:19 WBC 9.6 (3.8-10.6) k/uL RBC 4.27 (3.80-5.40) m/uL Hgb 12.3 (11.4-16.0) gm/dL Hct 37.1 (34.0-46.0) % Plt Count 171 (150-450) k/uL Comprehensive Metabolic Panel 05/23/20 Range/Units 00:19 Sodium 130 L (137-145) mmol/L Potassium 4.5 (3.5-5.1) mmol/L Chloride 103 (98-107) mmol/L Carbon Dioxide 13 L (22-30) mmol/L BUN 12 (7-17) mg/dL Creatinine 0.69 (0.52-1.04) mg/dL Glucose 166 H (74-99) mg/dL Calcium 8.8 (8.4-10.2) mg/dL AST 30 (14-36) U/L ALT 29 (4-34) U/L Alkaline Phosphatase 139 H (38-126) U/L Total Protein 7.0 (6.3-8.2) g/dL Albumin 3.1 L (3.5-5.0) g/dL Current Medications Generic Name Dose Route Start Last Admin Trade Name Freq PRN Reason Stop Dose Admin Alprazolam 1 mg 05/23/20 03:06 05/23/20 06:37 Xanax PO 1 mg BID PRN Administration Anxiety Amlodipine Besylate 10 mg 05/23/20 09:00 05/23/20 10:02 Norvasc PO 10 mg DAILY MAE Administration Aspirin 81 mg 05/23/20 09:00 05/23/20 10:02 Aspirin PO 81 mg DAILY MAE Administration Clonidine 0.1 mg 05/23/20 09:30 05/23/20 10:02 Catapres PO 0.1 mg BID MAE Administration Hydralazine HCl 50 mg 05/23/20 09:30 05/23/20 10:02 Apresoline PO 50 mg TID MAE Administration Sodium Chloride 1,000 mls @ 50 mls/hr 05/23/20 00:03 05/23/20 00:42 Saline 0.9% IV 05/23/20 20:02 100 mls/hr .Q20H STA Administration Insulin Aspart 0 unit 05/23/20 07:30 05/23/20 06:37 Novolog SQ 4 unit ACHS MAE Administration Protocol Lisinopril 40 mg 05/23/20 09:00 05/23/20 10:02 Zestril PO 40 mg DAILY MAE Administration Metoprolol Tartrate 50 mg 05/23/20 09:00 05/23/20 10:02 Lopressor PO 50 mg BID MAE Administration Morphine Sulfate 4 mg 05/23/20 04:06 05/23/20 10:03 Morphine Sulfate (Inj) IVP 4 mg Q4HR PRN Administration Pain Intake and Output 05/22/20 05/23/20 05/23/20 22:59 06:59 14:59 Intake Total 88 Balance 88 Intake: Intake, IV Titration 88 Amount Labetalol 200 mg In 88 Sodium Chloride 0.9% 160 ml @ 2 MG/MIN 120 mls/hr IV .Q1H40M ONE Rx#: [id number] Other: Voiding Method Toilet # Voids 1 Weight 76.2 kg 05/23/20 00:19 05/23/20 00:19
--- NOTE | 2020-05-23 11:00 | ECHOF ---
Referral Reason:Chest pain, LV function, HTN MEASUREMENTS -------- HEIGHT: 165.1 cm WEIGHT: 75.7 kg BP: RVIDd: 3.1 cm (< 3.3) IVSd: 1.8 cm (0.6 - 1.1) LVIDd: 4.8 cm (3.9 - 5.3) LVPWd: 1.7 cm (0.6 - 1.1) IVSs: 2.1 cm LVIDs: 3.3 cm LVPWs: 2.1 cm LAESV Index (A-L): 29.58 ml/m Ao Diam: 3.1 cm (2.0 - 3.7) AV Cusp: 2.0 cm (1.5 - 2.6) LA Diam: 3.4 cm (2.7 - 3.8) MV EXCURSION: 17.354 mm (> 18.000) MV EF SLOPE: 39 mm/s (70 - 150) EPSS: 1.0 cm MV E Lio: 0.80 m/s MV DecT: 180 ms MV A Lio: 1.12 m/s MV E/A Ratio: 0.72 AR PHT: 1044 ms RAP: 5.00 mmHg RVSP: 24.79 mmHg FINDINGS -------- This was a technically good study. The left ventricular size is normal. There is severe concentric left ventricular hypertrophy. Ove rall left ventricular systolic function is low-normal with, an EF between 50 - 55 %. Normal LAP Gra de 1 Diastolic Dysfunction. The right ventricle is normal in size. The global wall thickness of the right ventricle is mildly e nlarged. LA is midly dilated 29-33ml/m2. The right atrial size is normal. The aortic valve is trileaflet and appears structurally normal. There is xtig-fz-crlloeau aortic re gurgitation. The mitral valve is normal. There is trace mitral regurgitation. The tricuspid valve appears structurally normal. Mild tricuspid regurgitation present. Right vent ricular systolic pressure is normal at < 35 mmHg. There is no pulmonic regurgitation present. The aortic root size is normal. IVC Not well visulized. There is a trivial pericardial effusion present. CONCLUSIONS -------- 1. The left ventricular size is normal. 2. There is severe concentric left ventricular hypertrophy. 3. Overall left ventricular systolic function is low-normal with, an EF between 50 - 55 %. 4. Normal LAP Grade 1 Diastolic Dysfunction. 5. The global wall thickness of the right ventricle is mildly enlarged. 6. LA is midly dilated 29-33ml/m2. 7. There is nuyl-qg-ithxslfj aortic regurgitation. 8. There is trace mitral regurgitation. 9. Mild tricuspid regurgitation present. 10. There is a trivial pericardial effusion present. PACS ADMINISTRATOR: Carmen Giron RDCS
[2020-05-23 11:49] LABS: Glucose,Whole Blood 344 mg/dL (75-99)
[2020-05-23 14:02] VITALS: BMI 27.9
[2020-05-23 14:57] LABS: Basophils % (A) 0 %; Eosinophils # (A) 0.2 k/uL (0-0.7); Eosinophils % (A) 2 %; HCT 36.8 % (34.0-46.0); Lymphocytes # (A) 2.9 k/uL (1.0-4.8); Lymphocytes % (A) 26 %; MCV 89.6 fL (80.0-100.0); Mean Platelet Volume 9.2; Monocytes # (A) 0.3 k/uL (0-1.0); Monocytes % (A) 3 %; Neutrophils # (A) 7.7 k/uL (1.3-7.7); Neutrophils % (A) 68 %; Platelet Count 167 k/uL (150-450); RBC 4.11 m/uL (3.80-5.40); RDW 13.7 % (11.5-15.5); WBC 11.4 k/uL (3.8-10.6)
[2020-05-23 15:29] LABS: ALT 25 U/L (4-34); AST 23 U/L (14-36); African American GFR (CKD) >90 (>60 ml/min/1.73 sqM); Albumin 3.1 g/dL (3.5-5.0); Alkaline Phosphatase 120 U/L (38-126); Anion Gap 13 mmol/L; Blood Urea Nitrogen 10 mg/dL (7-17); Calcium 8.2 mg/dL (8.4-10.2); Carbon Dioxide 13 mmol/L (22-30); Chloride 102 mmol/L (98-107); Glucose 291 mg/dL (74-99); HDL Cholesterol 29 mg/dL (40-60); Non-African American GFR(CKD) >90 (>60 ml/min/1.73 sqM); Potassium 4.6 mmol/L (3.5-5.1); Sodium 128 mmol/L (137-145); Total Bilirubin 0.7 mg/dL (0.2-1.3); Total Protein 6.4 g/dL (6.3-8.2)
[2020-05-23 16:02] LABS: Cholesterol 1038 mg/dL (<200)
[2020-05-23 16:03] LABS: Triglycerides >5250 mg/dL (<150)
[2020-05-23 16:56] LABS: Glucose,Whole Blood 292 mg/dL (75-99)
--- NOTE | 2020-05-23 17:44 | HP ---
HISTORY AND PHYSICAL CHIEF COMPLAINT: Hypertensive emergency. HISTORY OF PRESENT ILLNESS: This is another admission for this 45-year-old female. Apparently, last week she was in [place] and went to the emergency room and was found to have a massively elevated blood pressure. She was also found to have elevated blood sugar and she has never had diabetes. She was released, but could not afford to get the medications and came back into the emergency room this time with a significantly elevated blood pressure and headache. She has had no chest pain, syncope, focal neurologic deficits, etc. REVIEW OF SYSTEMS: Otherwise unremarkable. She has had no abdominal pain or visual changes. Past medical history, family history and personal and social history are unremarkable. She is not taking any medication. PHYSICAL EXAMINATION: Blood pressure is 210/120 with a pulse of 90, respirations is 25, and she is afebrile. In general, she appeared to be in no acute distress. Skin color is normal, skin is warm and dry. Lymph nodes are not enlarged. Head, ears, eyes, nose, mouth, and throat were normal, neck veins are not distended, thyroid is not enlarged. Chest is clear. Cardiac exam is normal. Abdomen is soft, nontender. Extremities are normal. Neurologically, she is intact. IMPRESSION: 1. Malignant hypertension. 2. New onset diabetes mellitus. PLAN: 1. Bed rest. 2. IV fluids. 3. Control hypertension. 4. Diabetic teaching. 5. Manage the diabetes. MMODL / IJN: [id number] /
[2020-05-23 18:39] LABS: Glucose,Whole Blood 221 mg/dL (75-99)
[2020-05-23 19:32] LABS: Glucose,Whole Blood 202 mg/dL (75-99)
[2020-05-23] MEDS ORDERED: HYDROmorphone 0.5 MG/0.5 ML SYRINGE IVP STA (19:47)
[2020-05-23] MEDS: FENOFIBRATE 160 MG TAB PO SCH (20:05)
[2020-05-23] MEDS ORDERED: ATORVASTATIN 40 MG TAB PO SCH (21:00)
[2020-05-24] MEDS: MORPHINE SULFATE 4 MG/ML SYRINGE IVP PRN (00:52)
[2020-05-24] MEDS: ALPRAZolam 1 MG TAB PO PRN ×2 (02:11→19:54)
[2020-05-24] MEDS ORDERED: cloNIDine HCL 0.2 MG TAB PO STA (04:28)
[2020-05-24] MEDS ORDERED: NITROGLYCERIN SL TABS 0.4 MG TAB SUBLINGUAL STA ×2 (04:28→08:40)
[2020-05-24] MEDS: ACETAMINOPHEN TAB 500 MG TAB PO PRN ×2 (04:43→19:54)
[2020-05-24 06:36] LABS: Glucose,Whole Blood 300 mg/dL (75-99)
[2020-05-24 06:47] LABS: HDL Cholesterol 38 mg/dL (40-60)
[2020-05-24] MEDS ORDERED: INSULIN DETEMIR (LEVEMIR) 100 UNIT/ML SYR SQ SCH (07:00)
[2020-05-24] MEDS: INSULIN ASPART (NovoLOG) 100 UNIT/ML VIAL SQ SCH ×7 (07:03→19:59)
[2020-05-24 07:13] LABS: Cholesterol 1188 mg/dL (<200); Triglycerides >5250 mg/dL (<150)
[2020-05-24] MEDS ORDERED: ONDANSETRON 4 MG/2 ML VIAL IVP PRN (07:59)
[2020-05-24] MEDS ORDERED: HYDROmorphone 1 MG/ML 1 ML SYRINGE IVP STA (08:21)
[2020-05-24] MEDS ORDERED: RX INFO: IV CONTRAST WAS GIVEN 1 EACH MISC MISCELLANE PRN (08:40)
[2020-05-24] MEDS ORDERED: NITROGLYCERIN SL TABS 0.4 MG TAB SUBLINGUAL ONE (08:42)
[2020-05-24] MEDS: cloNIDine HCL 0.2 MG TAB PO SCH ×3 (08:44→21:54)
[2020-05-24] MEDS: lisinopriL 20 MG TAB PO SCH (08:44)
[2020-05-24] MEDS: hydrALAZINE HCL 50 MG TAB PO SCH ×3 (08:45→21:54)
[2020-05-24] MEDS: FENOFIBRATE 160 MG TAB PO SCH (08:45)
[2020-05-24] MEDS: ASPIRIN 81 MG PO SCH (08:45)
[2020-05-24] MEDS: amLODIPine 10 MG TAB PO SCH (08:45)
[2020-05-24] MEDS: METOPROLOL TARTRATE 50 MG TAB PO SCH ×2 (08:45→19:54)
[2020-05-24] MEDS ORDERED: ASPIRIN 325 MG TAB PO SCH (09:00)
[2020-05-24 09:32] LABS: HCT 41.5 % (34.0-46.0); MCV 88.9 fL (80.0-100.0); Mean Platelet Volume 9.7; Platelet Count 207 k/uL (150-450); RBC 4.66 m/uL (3.80-5.40); RDW 13.6 % (11.5-15.5); WBC 14.9 k/uL (3.8-10.6)
[2020-05-24 09:50] LABS: Chloride 98 mmol/L (98-107); MCH 28.5 pg (25.0-35.0); MCHC 32.3 g/dL (31.0-37.0); Potassium 4.4 mmol/L (3.5-5.1); Sodium 130 mmol/L (137-145)
[2020-05-24 09:51] LABS: HGB 13.4 gm/dL (11.4-16.0)
--- NOTE | 2020-05-24 09:52 | XR ---
EXAMINATION TYPE: XR abdomen 2V DATE OF EXAM: 05/24/2020 CLINICAL DATA: 45-year-old female with abdominal pain, PHH COMPARISON: 06/02/2017 FINDINGS: Lung bases are clear. No evidence for free intraperitoneal air. No dilated small bowel or air-fluid levels. Scattered air and stool seen throughout the colon extendi ng distally into the rectum. Minimal stool in the right side of the abdomen. No suspicious calcifications identified. Phleboliths in the pelvis. Cholecystectomy clips. IMPRESSION: Cholecystectomy clips. No evidence for free air or bowel obstruction. Minimal stool in the right side of the abdomen.
--- NOTE | 2020-05-24 10:03 | P.PN ---
Subjective Progress Note Date: 05/24/20 CHIEF COMPLAINT: Hypertension HISTORY OF PRESENT ILLNESS: Patient examined this morning at the bedside. She reports nausea and vomiting this morning. Blood pressure remains significantly elevated this morning. Echocardiogram completed yesterday reveals ejection fraction between 50 and 55%, global wall thickness of the right ventricle, ulod-jc-qbonjlnz aortic regurgitation, trace mitral regurgitation, and mild tricuspid regurgitation. Troponin 0.036. 0.033. 0.025. PHYSICAL EXAM: VITAL SIGNS: Reviewed. GENERAL: Well-developed in no acute distress. HEENT: Head is normocephalic. Pupils are equal, round. Sclerae anicteric. Mucous membranes of the mouth are moist. Neck supple. No JVD or thyromegaly LUNGS: Respirations even and unlabored. Lungs essentially clear to auscultation bilaterally. HEART: Regular rate and rhythm. S1 and S2 heard. EXTREMITIES: Normal range of motion. No clubbing or cyanosis. Peripheral pulses intact. No lower extremity edema NEUROLOGIC: Awake and alert. Oriented x 3. ASSESSMENT: Atypical chest pain, no evidence of acute coronary syndrome Hypertension, uncontrolled Diabetes mellitus, type II Medical noncompliance secondary to no insurance/financial difficulty Nicotine dependence PLAN: Continue current cardiac medications Catapres 0.2 mg 3 times a day added to medication regimen Nitro sublingual ordered this morning per Dr. Guzman CT chest ordered Possible cardiac catheterization pending results of chest CT Case management/social work on consult secondary to lack of insurance/financial difficulty Nurse practitioner note has been reviewed by physician. Signing provider agrees with the documented findings, assessment, and plan of care. Objective - Vital Signs Vital signs: Vital Signs Temp 99.2 F 05/24/20 08:32 Pulse 105 H 05/24/20 08:32 Resp 20 05/24/20 08:32 BP 156/112 05/24/20 08:47 Pulse Ox 96 05/24/20 08:32 Intake & Output 05/23/20 05/24/20 05/24/20 18:59 06:59 18:59 Intake Total 516 10 Balance 516 10 Weight 76.2 kg 75.6 kg Intake: IV 10 Invasive Line 1 10 Oral 516 Other: Voiding Method Toilet Toilet # Voids 2 2 0 - Labs CBC & Chem 7: 05/24/20 09:18 05/24/20 09:18 Labs: Abnormal Lab Results - Last 24 Hours (Table) 05/23/20 05/23/20 05/23/20 Range/Units 11:48 14:41 14:41 WBC 11.4 H (3.8-10.6) k/uL MCH 36.5 H (25.0-35.0) pg MCHC 40.7 H (31.0-37.0) g/dL Sodium 128 L (137-145) mmol/L Carbon Dioxide 13 L (22-30) mmol/L Glucose 291 H (74-99) mg/dL POC Glucose (mg/dL) 344 H (75-99) mg/dL Hemoglobin A1c (4.0-6.0) % Calcium 8.2 L (8.4-10.2) mg/dL Albumin 3.1 L (3.5-5.0) g/dL Triglycerides >5250 H (<150) mg/dL Cholesterol 1038 H (<200) mg/dL HDL Cholesterol 29 L (40-60) mg/dL 05/23/20 05/23/20 05/23/20 Range/Units 14:41 16:55 18:36 WBC (3.8-10.6) k/uL MCH (25.0-35.0) pg MCHC (31.0-37.0) g/dL Sodium (137-145) mmol/L Carbon Dioxide (22-30) mmol/L Glucose (74-99) mg/dL POC Glucose (mg/dL) 292 H 221 H (75-99) mg/dL Hemoglobin A1c 9.0 H (4.0-6.0) % Calcium (8.4-10.2) mg/dL Albumin (3.5-5.0) g/dL Triglycerides (<150) mg/dL Cholesterol (<200) mg/dL HDL Cholesterol (40-60) mg/dL 05/23/20 05/24/20 05/24/20 Range/Units 19:29 05:26 06:34 WBC (3.8-10.6) k/uL MCH (25.0-35.0) pg MCHC (31.0-37.0) g/dL Sodium (137-145) mmol/L Carbon Dioxide (22-30) mmol/L Glucose (74-99) mg/dL POC Glucose (mg/dL) 202 H 300 H (75-99) mg/dL Hemoglobin A1c (4.0-6.0) % Calcium (8.4-10.2) mg/dL Albumin (3.5-5.0) g/dL Triglycerides >5250 H (<150) mg/dL Cholesterol 1188 H (<200) mg/dL HDL Cholesterol 38 L (40-60) mg/dL 05/24/20 05/24/20 Range/Units 09:18 09:18 WBC 14.9 H (3.8-10.6) k/uL MCH (25.0-35.0) pg MCHC (31.0-37.0) g/dL Sodium 130 L (137-145) mmol/L Carbon Dioxide (22-30) mmol/L Glucose (74-99) mg/dL POC Glucose (mg/dL) (75-99) mg/dL Hemoglobin A1c (4.0-6.0) % Calcium (8.4-10.2) mg/dL Albumin (3.5-5.0) g/dL Triglycerides (<150) mg/dL Cholesterol (<200) mg/dL HDL Cholesterol (40-60) mg/dL
[2020-05-24 10:06] LABS: HGB 11.8 gm/dL (11.4-16.0); MCH 28.5 pg (25.0-35.0)
[2020-05-24 10:07] LABS: MCHC 31.9 g/dL (31.0-37.0)
--- NOTE | 2020-05-24 10:29 | CT ---
EXAMINATION TYPE: CT abdomen pelvis wo con DATE OF EXAM: 05/24/2020 COMPARISON: 12/30/2015 HISTORY: Hypertensive Emergency, Abdominal pain and Vomiting CT DLP: 1095.4 mGycm Examination of the solid and hollow viscera is limited given the lack of contrast. FINDINGS: LUNG BASES: No evidence for nodule. No evidence for infiltrate. Calcified granuloma right lung base. LIVER/GB: There is hepatic steatosis noted. Cholecystectomy clips are in place. No space-occupying he patic lesion. PANCREAS: There is fullness of the pancreatic head with surrounding inflammatory change which may ref lect pancreatitis. Underlying mass is not excluded. Correlate with amylase and lipase. There is adjac ent wall thickening involving the duodenum. SPLEEN: No evidence for splenomegaly. No intrasplenic lesions seen. ADRENALS: No adrenal nodules identified. No evidence for thickening. KIDNEYS: No evidence for renal mass. Nonobstructing left sided nephrolithiasis. No hydronephrosis. BOWEL: Appendix has a normal appearance. No evidence of bowel obstruction. No inflammatory process. Lymph nodes: No evidence for adenopathy greater than 1 cm. Abdominal aorta: Atheromatous changes seen. No evidence for aneurysm. Genital organs: No significant abnormality. Other: No significant abnormality. IMPRESSION: 1. Findings may reflect acute pancreatitis. Correlate with amylase and lipase. Follow-up CT with cont rast is recommended to exclude underlying pancreatic mass. Reactive wall thickening involving the adj acent duodenum. 2. Fatty liver.
--- NOTE | 2020-05-24 10:35 | CT ---
EXAMINATION TYPE: CT angio chest DATE OF EXAM: 05/24/2020 COMPARISON: None HISTORY: Aortic pathology, R/O dissection, Chest pain CT DLP: 1123.8 mGycm CONTRAST: CTA thoracic aorta with 3-D reconstruction is performed and without and with IV Contrast, patient inj ected with 100 ml mL of Isovue 370. Contrast CTA of the thoracic aorta was performed from the lung apex through the upper abdomen. 3D re construction imaging obtained at a separate workstation. CT Chest: THORACIC AORTA: No evidence for thoracic aortic aneurysm. Mild atheromatous changes seen. There is n o evidence for dissection or periaortic collection. LUNGS: The lungs are clear and free of infiltrate or atelectasis. No pulmonary nodule or mass is det ected. No pleural effusion or CT evidence of interstitial lung disease. MEDIASTINUM: No evidence for mediastinal hematoma. The heart is mildly enlarged. No evidence for mediastinal mass or adenopathy. HILAR STRUCTURES: No evidence for mass. No hilar adenopathy is appreciated. OTHER: No significant abnormality. IMPRESSION- No evidence for thoracic aortic aneurysm or dissection. No pulmonary embolism.
[2020-05-24] MEDS: PROCHLORPERAZINE 5 MG TAB PO PRN ×2 (10:36→17:53)
[2020-05-24 10:37] LABS: ALT 26 U/L (4-34); AST 21 U/L (14-36); African American GFR (CKD) >90 (>60 ml/min/1.73 sqM); Albumin 4.4 g/dL (3.5-5.0); Alkaline Phosphatase 135 U/L (38-126); Anion Gap 12 mmol/L; Blood Urea Nitrogen 7 mg/dL (7-17); Calcium 9.4 mg/dL (8.4-10.2); Carbon Dioxide 20 mmol/L (22-30); Glucose 294 mg/dL (74-99); Non-African American GFR(CKD) >90 (>60 ml/min/1.73 sqM); Total Protein 7.5 g/dL (6.3-8.2)
[2020-05-24 12:04] LABS: Glucose,Whole Blood 270 mg/dL (75-99)
[2020-05-24] MEDS ORDERED: SODIUM CHLORIDE 0.9% 500 ML 500 ML IV ONE (12:51)
[2020-05-24] MEDS ORDERED: INSULIN DETEMIR (LEVEMIR) 100 UNIT/ML SYR SQ STA (12:52)
[2020-05-24] MEDS ORDERED: TRIMETHOBENZAMIDE 100 MG/ML 2 ML VIAL IM PRN (12:54)
[2020-05-24] MEDS: PANTOPRAZOLE 40 MG/10 ML VIAL IVP SCH (13:10)
[2020-05-24] MEDS: SODIUM CHLORIDE 0.9% 1,000 ML IV SCH ×2 (13:11→18:02)
--- NOTE | 2020-05-24 16:49 | CONS ---
CONSULTATION DATE OF SERVICE: 05/24/2020 REASON FOR CONSULTATION: Epigastric pain, acute pancreatitis. HISTORY OF PRESENT ILLNESS: The patient is a 45-year-old pleasant white female who was admitted to the hospital 3 days ago when she presented with uncontrolled hypertension and elevated blood sugars. After being admitted to the hospital, she started complaining of severe epigastric pain that has been progressively getting worse. She had CT of the abdomen and pelvis done that showed peripancreatic fluid consistent with acute pancreatitis. Subsequently, she had amylase and lipase done which were elevated with lipase of 1350 and hence we are consulted in regard to this pancreatitis. Patient denies any alcohol use. No prior history of pancreatitis. During this hospitalization, she was noted to have elevated triglycerides to more than 5250. No family history of chronic acute pancreatitis. The patient today states that the abdominal pain has slightly improved after receiving pain medications. Still has some nausea but no emesis. PAST MEDICAL HISTORY: 1. Significant for newly diagnosed diabetes mellitus. 2. Uncontrolled hypertension. 3. Anxiety. SOCIAL HISTORY: No smoking. no alcohol use. PAST SURGICAL HISTORY: Cholecystectomy 20 years ago for symptomatic gallstones, BD stent placement 16 years ago, hysterectomy, . FAMILY HISTORY: Mother has diabetes mellitus, COPD. REVIEW OF SYSTEMS: CARDIOPULMONARY: No chest pain or shortness of breath. : No dysuria or hematuria. MUSCULOSKELETAL: Unremarkable. SKIN: Unremarkable. ENDOCRINE: Unremarkable. PSYCHIATRIC: Anxiety, depression. NEUROLOGY: Unremarkable. ENT/VISION: Unremarkable. CONSTITUTIONAL: No recent weight loss. No fever, chills, night sweats. MEDICATIONS: At home include Pepcid, ibuprofen, Lopressor, Norvasc, lisinopril, Cymbalta, Xanax, aspirin, and [place]. ALLERGIES: None. PHYSICAL EXAMINATION: She appears comfortable, in no apparent distress. Vital signs are stable. Vital signs show a blood pressure of 160/93, pulse rate 102, temperature 99.1. HEENT: Examination unremarkable, conjunctivae are pink, sclerae nonicteric, oral cavity no lesions. NECK: No JVD or lymph node enlargement. CHEST: Clear to auscultation. HEART: Regular rate and rhythm. ABDOMEN: Soft, slightly distended. There was severe tenderness in the epigastric area. Bowel sounds are positive, no organomegaly. EXTREMITIES: No pedal edema. NEUROLOGIC: She is alert and oriented x3. No focal deficits. LABS: From today WBC 14.9, hemoglobin 13.4, platelets 207. AST, ALT within normal limits, T bilirubin 1 and alkaline phosphatase 135, triglycerides more than 5250, total cholesterol 1188, lipase 1602, yesterday lipase was normal at 208. Amylase 38. IMPRESSION: 1. Acute pancreatitis, first episode, elevated. The patient presented with severe epigastric pain and elevated lipase and CAT scan showing changes in the pancreas with peripancreatic fluid edema consistent with acute pancreatitis. Most likely the pancreatitis is related to severe hypertriglyceridemia. 2. Uncontrolled hypertension, improving. 3. New onset diabetes mellitus. RECOMMENDATIONS: 1. Continue with n.p.o. status except for ice chips today. 2. Repeat labs in the morning. 3. Once the symptoms improve, she can start on a clear liquid diet tomorrow. 4. Monitor labs closely. 5. Aggressive treatment of hypertriglyceridemia to prevent future episodes of acute pancreatitis. Thank you for this consultation. Will follow with you closely. REILLY / IJN: [id number] /
[2020-05-24 17:09] LABS: Glucose,Whole Blood 272 mg/dL (75-99)
[2020-05-24] MEDS: HYDROmorphone 1 MG/ML 1 ML SYRINGE IVP PRN ×2 (17:52→21:54)
--- NOTE | 2020-05-24 18:13 | PN ---
PROGRESS NOTE DATE OF SERVICE: 05/24/2020 CHIEF COMPLAINT: Hypertension, new-onset diabetes and acute epigastric pain. HISTORY OF PRESENT ILLNESS: This lady started to complain of epigastric and anterior chest pain. The pain became quite severe. Studies were ordered and suggest that she has an acute pancreatitis. Triglycerides were over 5000 and cholesterol was markedly elevated over 500. Lipase was elevated. She has had nausea and vomiting and threw up a small amount of bright red blood. She has had no fever, chills, diarrhea, melena, etc. PHYSICAL EXAMINATION: Chest is clear. Cardiac exam is normal. She is tender over the epigastric area and there are no masses. Flanks are nontender. Extremities are normal. IMPRESSION: 1. Acute pancreatitis. 2. Hypertriglyceridemia. 3. Hypercholesterolemia. 4. Malignant hypertension. 5. New-onset diabetes mellitus. PLAN: 1. studies were ordered to make diagnosis. 2. Consult with Cardiology and GI. MMODL / IJN: [id number] /
[2020-05-24] MEDS: ATORVASTATIN 80 MG TAB PO SCH (19:53)
[2020-05-24 19:57] LABS: Glucose,Whole Blood 218 mg/dL (75-99)
[2020-05-25] MEDS: HYDROmorphone 1 MG/ML 1 ML SYRINGE IVP PRN ×7 (01:17→22:50)
[2020-05-25] MEDS: SODIUM CHLORIDE 0.9% 1,000 ML IV SCH ×3 (05:38→12:20)
[2020-05-25 06:25] LABS: Glucose,Whole Blood 238 mg/dL (75-99)
[2020-05-25] MEDS ORDERED: INSULIN DETEMIR (LEVEMIR) 100 UNIT/ML SYR SQ SCH (07:00)
[2020-05-25 07:27] LABS: African American GFR (CKD) >90 (>60 ml/min/1.73 sqM); Anion Gap 10 mmol/L; Blood Urea Nitrogen 13 mg/dL (7-17); Calcium 8.4 mg/dL (8.4-10.2); Carbon Dioxide 21 mmol/L (22-30); Chloride 101 mmol/L (98-107); Glucose 237 mg/dL (74-99); Non-African American GFR(CKD) 86 (>60 ml/min/1.73 sqM); Potassium 3.9 mmol/L (3.5-5.1); Sodium 132 mmol/L (137-145)
[2020-05-25] MEDS: PANTOPRAZOLE 40 MG/10 ML VIAL IVP SCH (07:49)
[2020-05-25] MEDS: FENOFIBRATE 160 MG TAB PO SCH (07:51)
[2020-05-25] MEDS: amLODIPine 10 MG TAB PO SCH (07:51)
[2020-05-25] MEDS: METOPROLOL TARTRATE 50 MG TAB PO SCH ×2 (07:51→19:51)
[2020-05-25] MEDS: hydrALAZINE HCL 50 MG TAB PO SCH ×3 (07:51→22:50)
[2020-05-25] MEDS: ASPIRIN 81 MG PO SCH (07:51)
[2020-05-25] MEDS: lisinopriL 20 MG TAB PO SCH ×2 (07:51→19:51)
[2020-05-25] MEDS: cloNIDine HCL 0.2 MG TAB PO SCH (07:51)
[2020-05-25] MEDS: INSULIN ASPART (NovoLOG) 100 UNIT/ML VIAL SQ SCH ×7 (09:37→21:26)
[2020-05-25 09:52] LABS: HDL Cholesterol 44 mg/dL (40-60)
[2020-05-25 09:54] LABS: Cholesterol 1090 mg/dL (<200); Triglycerides 4153 mg/dL (<150)
--- NOTE | 2020-05-25 10:43 | P.PN ---
Subjective Progress Note Date: 05/25/20 CHIEF COMPLAINT: Hypertension HISTORY OF PRESENT ILLNESS: Patient examined this morning at the bedside. Patient denies chest pain. She reports upper abdominal pain. She has been evaluated by GI service for pancreatitis. Blood pressure has currently improved. 119/72. PHYSICAL EXAM: VITAL SIGNS: Reviewed. GENERAL: Well-developed in no acute distress. HEENT: Head is normocephalic. Pupils are equal, round. Sclerae anicteric. Mucous membranes of the mouth are moist. Neck supple. No JVD or thyromegaly LUNGS: Respirations even and unlabored. Lungs essentially clear to auscultation bilaterally. HEART: Regular rate and rhythm. S1 and S2 heard. EXTREMITIES: Normal range of motion. No clubbing or cyanosis. Peripheral pulses intact. No lower extremity edema NEUROLOGIC: Awake and alert. Oriented x 3. ASSESSMENT: Atypical chest pain, no evidence of acute coronary syndrome Hypertension, uncontrolled Diabetes mellitus, type II Medical noncompliance secondary to no insurance/financial difficulty Nicotine dependence Acute pancreatitis, likely secondary to hypertriglyceridemia PLAN: Monitor blood pressure GI following for pancreatitis Decrease catapres to 0.1mg TID Change lisinopril to 20mg BID We will follow on an as-needed basis. Please call with questions or concerns Nurse practitioner note has been reviewed by physician. Signing provider agrees with the documented findings, assessment, and plan of care. Objective - Vital Signs Vital signs: Vital Signs Temp 97.0 F L 05/25/20 04:00 Pulse 88 05/25/20 04:00 Resp 18 05/25/20 04:00 BP 119/72 05/25/20 04:00 Pulse Ox 93 L 05/25/20 04:00 Intake & Output 05/24/20 05/25/20 05/25/20 18:59 06:59 18:59 Intake Total 30 Output Total 600 800 Balance -570 -800 Weight 96.3 kg Intake: IV 30 Invasive Line 1 30 Output: Urine 600 800 Other: Voiding Method Toilet Toilet # Voids 1 # Bowel Movements 0 - Labs CBC & Chem 7: 05/24/20 09:18 05/25/20 06:15 Labs: Abnormal Lab Results - Last 24 Hours (Table) 05/24/20 05/24/20 05/24/20 Range/Units 11:34 16:46 19:55 Sodium (137-145) mmol/L Carbon Dioxide (22-30) mmol/L Glucose (74-99) mg/dL POC Glucose (mg/dL) 270 H 272 H 218 H (75-99) mg/dL Triglycerides (<150) mg/dL Cholesterol (<200) mg/dL 05/25/20 05/25/20 05/25/20 Range/Units 06:15 06:15 06:15 Sodium 132 L (137-145) mmol/L Carbon Dioxide 21 L (22-30) mmol/L Glucose 237 H (74-99) mg/dL POC Glucose (mg/dL) 238 H (75-99) mg/dL Triglycerides 4153 H (<150) mg/dL Cholesterol 1090 H (<200) mg/dL
[2020-05-25 11:26] LABS: Glucose,Whole Blood 219 mg/dL (75-99)
--- NOTE | 2020-05-25 16:16 | PN ---
PROGRESS NOTE DATE OF DICTATION: 05/25/2020 Patient is a 45-year-old white female admitted to the hospital with uncontrolled hypertension, acute pancreatitis and severe hypertriglyceridemia. She is complaining of severe epigastric pain. She was noted to have elevated lipase yesterday. Today labs were repeated; however, because of glycemia of the serum, lipase could not be calculated. She continues to have persistent abdominal pain, no nausea, no vomiting. PHYSICAL EXAMINATION: Appears to be in distress because of pain. VITAL SIGNS: Blood pressure 100/58, pulse rate 62, temperature 98. HEENT: Examination unremarkable, conjunctivae are pink, sclerae nonicteric, oral cavity no lesions. NECK: No JVD or lymph node enlargement. CHEST: Clear to auscultation. HEART: Regular rate and rhythm. ABDOMEN: Soft, there was severe diffuse tenderness noted throughout the entire abdomen, especially in the epigastric area. EXTREMITIES: No pedal edema. SKIN: No rashes. NEUROLOGIC: Alert and oriented x3. No focal deficits. LABS: From today, triglycerides 4153, lipase could not be calculated because of extreme glycemia of the serum, basic metabolic panel is within normal limits. IMPRESSION: 1. Severe epigastric pain from acute pancreatitis related to hypertriglyceridemia. Patient on clear liquid diet, still remains symptomatic. 2. Hypertriglyceridemia. Presently on Lipitor, fenofibrate. 3. New onset diabetes mellitus. 4. Uncontrolled blood pressure, uncontrolled hypertension. RECOMMENDATIONS: 1. Keep her on a clear liquid diet. 2. Aggressive IV hydration. 3. Symptomatic and supportive care with pain medications as needed. 4. Control of hypertriglyceridemia and consider Endocrinology consultation. 5. Repeat labs in the morning. 6. Will follow with you closely. Thank you for this consultation. MMODL / IJN: [id number] /
[2020-05-25 16:55] LABS: Glucose,Whole Blood 190 mg/dL (75-99)
[2020-05-25] MEDS: cloNIDine HCL 0.1 MG TAB PO SCH ×2 (16:56→22:50)
--- NOTE | 2020-05-25 18:43 | PN ---
PROGRESS NOTE DATE OF SERVICE: 05/25/2020 CHIEF COMPLAINT: Malignant hypertension, diabetes and pancreatitis. HISTORY OF PRESENT ILLNESS: This lady is a little bit more comfortable, but still having quite a bit of abdominal pain. She is not vomiting any longer. Sugars are also still elevated. PHYSICAL EXAMINATION: Chest is clear. Cardiac exam is normal. Abdomen is sanitary napkin machine tender over the epigastrium. Skin is warm and dry. IMPRESSION: 1. Malignant hypertension. 2. Uncontrolled newly diagnosed diabetes mellitus. 3. Pancreatitis. 4. Hyperlipidemia. PLAN: 1. Increase insulin. 2. Continue to monitor her lipase, cholesterol and triglycerides. 3. Regular diet as tolerated. MMODL / IJN: [id number] /
[2020-05-25] MEDS: ATORVASTATIN 80 MG TAB PO SCH (19:51)
[2020-05-25 20:10] LABS: Glucose,Whole Blood 127 mg/dL (75-99)
[2020-05-26] MEDS: ALPRAZolam 1 MG TAB PO PRN ×3 (01:17→20:30)
[2020-05-26] MEDS: HYDROmorphone 1 MG/ML 1 ML SYRINGE IVP PRN ×4 (02:24→13:15)
[2020-05-26] MEDS: SODIUM CHLORIDE 0.9% 1,000 ML IV SCH ×4 (03:22→19:10)
[2020-05-26 07:09] LABS: Glucose,Whole Blood 158 mg/dL (75-99)
[2020-05-26] MEDS: INSULIN DETEMIR (LEVEMIR) 100 UNIT/ML SYR SQ SCH (07:32)
[2020-05-26] MEDS: INSULIN ASPART (NovoLOG) 100 UNIT/ML VIAL SQ SCH ×7 (07:32→20:30)
[2020-05-26] MEDS: ASPIRIN 81 MG PO SCH (09:06)
[2020-05-26] MEDS: cloNIDine HCL 0.1 MG TAB PO SCH ×3 (09:06→22:57)
[2020-05-26] MEDS: METOPROLOL TARTRATE 50 MG TAB PO SCH ×2 (09:06→20:30)
[2020-05-26] MEDS: amLODIPine 10 MG TAB PO SCH (09:06)
[2020-05-26] MEDS: FENOFIBRATE 160 MG TAB PO SCH (09:06)
[2020-05-26] MEDS: hydrALAZINE HCL 50 MG TAB PO SCH ×3 (09:06→22:57)
[2020-05-26] MEDS: PANTOPRAZOLE 40 MG/10 ML VIAL IVP SCH (09:06)
[2020-05-26] MEDS: lisinopriL 20 MG TAB PO SCH ×2 (09:07→20:30)
[2020-05-26 10:32] LABS: ALT 16 U/L (4-34); AST 24 U/L (14-36); African American GFR (CKD) >90 (>60 ml/min/1.73 sqM); Albumin 2.9 g/dL (3.5-5.0); Alkaline Phosphatase 86 U/L (38-126); Amylase 35 U/L (30-110); Anion Gap 5 mmol/L; Blood Urea Nitrogen 7 mg/dL (7-17); Calcium 7.9 mg/dL (8.4-10.2); Carbon Dioxide 21 mmol/L (22-30); Chloride 106 mmol/L (98-107); Glucose 141 mg/dL (74-99); Non-African American GFR(CKD) >90 (>60 ml/min/1.73 sqM); Potassium 3.3 mmol/L (3.5-5.1); Sodium 132 mmol/L (137-145); Total Bilirubin 0.5 mg/dL (0.2-1.3); Total Protein 5.5 g/dL (6.3-8.2)
[2020-05-26 11:06] LABS: Basophils % (A) 0 %; Eosinophils # (A) 0.1 k/uL (0-0.7); Eosinophils % (A) 1 %; HCT 31.6 % (34.0-46.0); HGB 10.5 gm/dL (11.4-16.0); Lymphocytes # (A) 1.7 k/uL (1.0-4.8); Lymphocytes % (A) 24 %; MCH 30.2 pg (25.0-35.0); MCHC 33.1 g/dL (31.0-37.0); MCV 91.2 fL (80.0-100.0); Mean Platelet Volume 10.4; Monocytes # (A) 0.3 k/uL (0-1.0); Monocytes % (A) 4 %; Neutrophils # (A) 4.9 k/uL (1.3-7.7); Neutrophils % (A) 68 %; Platelet Count 142 k/uL (150-450); RBC 3.47 m/uL (3.80-5.40); RDW 13.9 % (11.5-15.5); WBC 7.2 k/uL (3.8-10.6)
[2020-05-26 11:52] LABS: Glucose,Whole Blood 164 mg/dL (75-99)
--- NOTE | 2020-05-26 11:57 | P.PN ---
Subjective Progress Note Date: 05/26/20 CHIEF COMPLAINT: Hypertension HISTORY OF PRESENT ILLNESS: Patient examined this morning at the bedside. Patient denies chest pain. Denies shortness of breath. She continues to have upper abdominal pain secondary to pancreatitis. Blood pressure remained stable. PHYSICAL EXAM: VITAL SIGNS: Reviewed. GENERAL: Well-developed in no acute distress. HEENT: Head is normocephalic. Pupils are equal, round. Sclerae anicteric. Mucous membranes of the mouth are moist. Neck supple. No JVD or thyromegaly LUNGS: Respirations even and unlabored. Lungs essentially clear to auscultation bilaterally. HEART: Regular rate and rhythm. S1 and S2 heard. EXTREMITIES: Normal range of motion. No clubbing or cyanosis. Peripheral pulses intact. No lower extremity edema NEUROLOGIC: Awake and alert. Oriented x 3. ASSESSMENT: Atypical chest pain, no evidence of acute coronary syndrome Hypertension, uncontrolled Diabetes mellitus, type II Medical noncompliance secondary to no insurance/financial difficulty Nicotine dependence Acute pancreatitis, likely secondary to hypertriglyceridemia PLAN: Monitor blood pressure GI following for pancreatitis Continue current cardiac medications. She will be discharged home from a cardiac standpoint and follow up outpatient. We will follow on an as-needed basis. Please call with questions or concerns Nurse practitioner note has been reviewed by physician. Signing provider agrees with the documented findings, assessment, and plan of care. Objective - Vital Signs Vital signs: Vital Signs Temp 98.0 F 05/26/20 08:00 Pulse 88 05/26/20 08:00 Resp 18 05/26/20 08:00 BP 128/74 05/26/20 08:00 Pulse Ox 94 L 05/26/20 08:00 Intake & Output 05/25/20 05/26/20 05/26/20 18:59 06:59 18:59 Intake Total 3020 120 Balance 3020 120 Weight 98.6 kg Intake: Intake, IV Titration 2400 Amount Sodium Chloride 0.9% 1, 2400 000 ml @ 150 mls/hr IV . Q6H40M MAE Rx#:[id number] Oral 620 120 Other: Voiding Method Toilet Toilet Toilet # Voids 3 - Labs CBC & Chem 7: 05/26/20 09:57 05/26/20 09:57 Labs: Abnormal Lab Results - Last 24 Hours (Table) 05/25/20 05/25/20 05/26/20 Range/Units 16:50 20:06 07:07 RBC (3.80-5.40) m/uL Hgb (11.4-16.0) gm/dL Hct (34.0-46.0) % Plt Count (150-450) k/uL Sodium (137-145) mmol/L Potassium (3.5-5.1) mmol/L Carbon Dioxide (22-30) mmol/L Glucose (74-99) mg/dL POC Glucose (mg/dL) 190 H 127 H 158 H (75-99) mg/dL Calcium (8.4-10.2) mg/dL Total Protein (6.3-8.2) g/dL Albumin (3.5-5.0) g/dL 05/26/20 05/26/20 05/26/20 Range/Units 09:57 09:57 11:51 RBC 3.47 L (3.80-5.40) m/uL Hgb 10.5 L (11.4-16.0) gm/dL Hct 31.6 L (34.0-46.0) % Plt Count 142 L (150-450) k/uL Sodium 132 L (137-145) mmol/L Potassium 3.3 L (3.5-5.1) mmol/L Carbon Dioxide 21 L (22-30) mmol/L Glucose 141 H (74-99) mg/dL POC Glucose (mg/dL) 164 H (75-99) mg/dL Calcium 7.9 L (8.4-10.2) mg/dL Total Protein 5.5 L (6.3-8.2) g/dL Albumin 2.9 L (3.5-5.0) g/dL Microbiology - Last 24 Hours (Table) 05/24/20 09:18 Blood Culture - Preliminary Blood No Growth after 48 hours 05/24/20 09:04 Blood Culture - Preliminary Blood No Growth after 48 hours
--- NOTE | 2020-05-26 11:58 | PN ---
PROGRESS NOTE Patient is a 45-year-old white female admitted to the hospital with acute uncontrolled hypertension, hypertriglyceridemia, acute pancreatitis and hyperglycemia. Patient is doing better today. She has abdominal pain but has improved on clear liquid diet, tolerating well. PHYSICAL EXAMINATION: Appears comfortable, no apparent distress. VITAL SIGNS: Stable. Blood pressure is 128/74, pulse rate 68, temperature 98. HEENT: Examination unremarkable. Conjunctivae are pink. Sclerae anicteric. Oral cavity no lesions. NECK: No JVD or lymph node enlargement. CHEST: Clear to auscultation. HEART: Regular rate and rhythm. ABDOMEN: Soft. There was mild tenderness in the epigastric area. Rest of the abdomen was benign. EXTREMITIES: No pedal edema. SKIN: No rashes. NEUROLOGIC: Alert and oriented x3. No focal deficits. LABS: From today WBC 7.2, hemoglobin 10.5, platelets 142. Blood sugar is down to 141. Lipase is down to 250. Amylase is 35. IMPRESSION: 1. Acute pancreatitis secondary to severe hypertriglyceridemia. She is gradually improving. Amylase and lipase have normalized. On clear liquid diet, tolerating well. Requiring pain medications every 3 hours. 2. Hypertriglyceridemia. On statins as well as fenofibrate. 3. Hypertension, improving. 4. Hypertriglyceridemia, improving. RECOMMENDATION: 1. Advance to full liquid diet. 2. Continue pain medications as needed. 3. Monitor labs closely. 4. Continue symptomatic and supportive care. 5. Aggressive control of blood sugars and hypertriglyceridemia. 6. Will follow with you closely. Thank you for this consultation. MMODL / IJN: [id number] /
--- NOTE | 2020-05-26 14:10 | PN ---
PROGRESS NOTE DATE OF SERVICE: 05/26/2020. CHIEF COMPLAINT: Pancreatitis, malignant hypertension and uncontrolled diabetes. HISTORY OF PRESENT ILLNESS: This lady is doing well except she is still complaining a lot of abdominal pain. She has had no vomiting. She had no fever or chills. Her numbers are back to normal. PHYSICAL EXAM: Her chest is clear. The cardiac exam is normal. The abdomen is professed to be tender in the epigastrium and right upper quadrant. There are no masses. Bowel sounds present. IMPRESSION: 1. Persistent right upper quadrant and epigastric pain. 2. Pancreatitis, resolved. 3. Newly diagnosed uncontrolled diabetes mellitus, resolved. 4. Malignant hypertension, resolved. 5. Hypertriglyceridemia. 6. Hyperlipidemia. PLAN: Stop IV analgesics and try oral. If it were not for the pain, she could be discharged. MMODL / IJN: [id number] /
[2020-05-26] MEDS ORDERED: Potassium Replacement Protocol 1 EACH MISC MISCELLANE PRN (16:37)
[2020-05-26] MEDS: traMADol 50 MG TAB PO SCH ×3 (16:58→22:57)
[2020-05-26] MEDS: POTASSIUM CHLORIDE ER 20 MEQ TAB.ER PO SCH (16:59)
[2020-05-26 17:05] LABS: Glucose,Whole Blood 154 mg/dL (75-99)
[2020-05-26 20:05] LABS: Glucose,Whole Blood 224 mg/dL (75-99)
[2020-05-26] MEDS: ATORVASTATIN 80 MG TAB PO SCH (20:30)
[2020-05-27] MEDS: SODIUM CHLORIDE 0.9% 1,000 ML IV SCH ×4 (03:36→20:25)
[2020-05-27 07:18] LABS: Glucose,Whole Blood 143 mg/dL (75-99)
[2020-05-27] MEDS: cloNIDine HCL 0.1 MG TAB PO SCH ×3 (08:08→23:22)
[2020-05-27] MEDS: METOPROLOL TARTRATE 50 MG TAB PO SCH ×2 (08:08→20:22)
[2020-05-27] MEDS: traMADol 50 MG TAB PO SCH ×4 (08:08→23:22)
[2020-05-27] MEDS: ASPIRIN 81 MG PO SCH (08:08)
[2020-05-27] MEDS: lisinopriL 20 MG TAB PO SCH ×2 (08:09→20:22)
[2020-05-27] MEDS: PANTOPRAZOLE 40 MG/10 ML VIAL IVP SCH (08:09)
[2020-05-27] MEDS: INSULIN DETEMIR (LEVEMIR) 100 UNIT/ML SYR SQ SCH (08:09)
[2020-05-27] MEDS: amLODIPine 10 MG TAB PO SCH (08:09)
[2020-05-27] MEDS: FENOFIBRATE 160 MG TAB PO SCH (08:09)
[2020-05-27] MEDS: hydrALAZINE HCL 50 MG TAB PO SCH ×3 (08:09→23:22)
[2020-05-27 08:57] LABS: African American GFR (CKD) >90 (>60 ml/min/1.73 sqM); Anion Gap 8 mmol/L; Blood Urea Nitrogen 6 mg/dL (7-17); Calcium 8.3 mg/dL (8.4-10.2); Carbon Dioxide 21 mmol/L (22-30); Chloride 105 mmol/L (98-107); Glucose 217 mg/dL (74-99); Non-African American GFR(CKD) >90 (>60 ml/min/1.73 sqM); Potassium 3.7 mmol/L (3.5-5.1); Sodium 134 mmol/L (137-145)
[2020-05-27] MEDS: INSULIN ASPART (NovoLOG) 100 UNIT/ML VIAL SQ SCH ×7 (09:05→20:22)
--- NOTE | 2020-05-27 10:59 | PN ---
PROGRESS NOTE DATE OF SERVICE: 05/27/2020 INTERVAL HISTORY: Patient is a 45-year-old white female complaining of severe right upper quadrant abdominal pain today. Her epigastric pain has resolved. She complains of some shortness of breath. Denies any nausea, vomiting. On a clear liquid diet, doing reasonably well. PHYSICAL EXAMINATION: Appears comfortable. VITAL SIGNS: Stable. Blood pressure 129/73, pulse rate 90, temperature 98.2. HEENT: Examination unremarkable. Conjunctivae pink. Sclerae anicteric. Oral cavity no lesions. NECK: No JVD or lymph node enlargement. CHEST: Clear to auscultation. HEART: Regular rate and rhythm. ABDOMEN: Soft. There was tenderness in the right upper quadrant area. Rest of the abdomen was benign. Bowel sounds are positive. EXTREMITIES: No pedal edema. SKIN: No rashes. NEURO: She is alert and oriented x3. No focal deficits. LABS: Labs from today, basic metabolic panel, sodium 134, potassium 3.7, chloride 105, CO2 21, BUN 6, creatinine 0.66. IMPRESSION: 1. Acute pancreatitis related to hypertriglyceridemia, resolved. Patient on clear liquid diet, tolerating well. 2. Severe right upper quadrant abdominal pain that started last night with some difficulty breathing. LFTs yesterday were within normal limits. 3. Uncontrolled hypertension. 4. Hyperglycemia/new onset diabetes mellitus. RECOMMENDATION: 1. Will obtain ultrasound of the right upper quadrant. 2. Continue with pain medications as needed. 3. Advance to a full liquid diet. 4. Repeat labs in the morning. 5. We will follow with you closely. Thank you for this consultation. MMODL / IJN: [id number] /
[2020-05-27 12:06] LABS: Glucose,Whole Blood 144 mg/dL (75-99)
--- NOTE | 2020-05-27 14:41 | US ---
EXAMINATION TYPE: US liver DATE OF EXAM: 05/27/2020 COMPARISON: NONE CLINICAL HISTORY: severe RUQ abd pain. Patient recently diagnosed with pancreatitis and is having inc reasing right sided pain, h/o cholecystectomy EXAM MEASUREMENTS: Liver Length: 21.5 cm Gallbladder Wall: Surgically absent CBD: 0.7 cm Right Kidney: 11.9 x 5.5 x 5.4 cm overlying bowel gas limits study Pancreas: Obscured due to bowel gas Liver: Fatty liver with heterogenous echotexture. There is poor posterior beam penetration. Gallbladder: Surgically absent Marketing Executive reports negative sonographic sign. CBD: Normal. Right Kidney: Normal. IMPRESSION: 1. Pancreas not visualized due to overlying bowel gas. 2. Status post cholecystectomy. 3. Fatty liver. Poor posterior visualization due to beam attenuation.
[2020-05-27 16:46] LABS: Glucose,Whole Blood 90 mg/dL (75-99)
[2020-05-27] MEDS: ALPRAZolam 1 MG TAB PO PRN (17:44)
[2020-05-27 19:46] LABS: Glucose,Whole Blood 145 mg/dL (75-99)
[2020-05-27] MEDS: ATORVASTATIN 80 MG TAB PO SCH (20:22)
--- NOTE | 2020-05-27 22:19 | DS ---
DISCHARGE SUMMARY CHIEF COMPLAINT: Malignant hypertension and uncontrolled newly diagnosed diabetes. HISTORY OF PRESENT ILLNESS AND PHYSICAL EXAMINATION: Details of this lady's history and physical can be found in the initial workup. LABORATORY STUDIES: While she was in a hospital she had laboratory studies, details of which can be found in the laboratory section of her chart. COURSE IN THE HOSPITAL: After admission she was placed on bedrest, started on intravenous fluids and antihypertensives. She was also started on insulin. While in the hospital she developed acute epigastric pain and she was found to have acute pancreatitis. She had hypertriglyceridemia and a markedly elevated LDL. All of these parameters were treated and dropped into normal range. She is doing well with good control of her hypertension, diabetes, and returned to normal of her pancreatic and enzymes. It was felt that she could be discharged on the . FINAL DIAGNOSIS: 1. Malignant hypertension. 2. Newly diagnosed uncontrolled insulin-dependent diabetes mellitus. 3. Pancreatitis. 4. Hypertriglyceridemia. 5. Hypercholesterolemia. OPERATIONS: None. CONSULTATIONS: Gastroenterology She is improved. MMODL / IJN: [id number] /
[2020-05-28] MEDS: SODIUM CHLORIDE 0.9% 1,000 ML IV SCH (05:25)
[2020-05-28 07:13] LABS: Glucose,Whole Blood 142 mg/dL (75-99)
[2020-05-28] MEDS: INSULIN ASPART (NovoLOG) 100 UNIT/ML VIAL SQ SCH ×4 (07:30→12:42)
[2020-05-28] MEDS: INSULIN DETEMIR (LEVEMIR) 100 UNIT/ML SYR SQ SCH (07:34)
[2020-05-28] MEDS: cloNIDine HCL 0.1 MG TAB PO SCH (08:37)
[2020-05-28] MEDS: hydrALAZINE HCL 50 MG TAB PO SCH (08:37)
[2020-05-28] MEDS: amLODIPine 10 MG TAB PO SCH (08:37)
[2020-05-28] MEDS: ASPIRIN 81 MG PO SCH (08:37)
[2020-05-28] MEDS: METOPROLOL TARTRATE 50 MG TAB PO SCH (08:37)
[2020-05-28] MEDS: FENOFIBRATE 160 MG TAB PO SCH (08:37)
[2020-05-28] MEDS: PANTOPRAZOLE 40 MG/10 ML VIAL IVP SCH (08:37)
[2020-05-28] MEDS: lisinopriL 20 MG TAB PO SCH (08:37)
[2020-05-28] MEDS: traMADol 50 MG TAB PO SCH ×2 (08:38→14:43)
[2020-05-28] MEDS: ALPRAZolam 1 MG TAB PO PRN (08:47)
[2020-05-28 08:50] VITALS: TEMP 98.1
--- NOTE | 2020-05-28 12:01 | PN ---
PROGRESS NOTE DATE OF SERVICE: 05/28/2020 INTERVAL HISTORY: Patient is a 45-year-old pleasant white female admitted to the hospital with acute uncontrolled hypertension, hyperglycemia, as well as acute pancreatitis related to hyperglycemia. She is feeling much better today. Abdominal pain is improving. Still has some right upper quadrant abdominal pain. She did have ultrasound of the right upper quadrant done yesterday that showed evidence of hepatic steatosis status post cholecystectomy. PHYSICAL EXAMINATION: She appears comfortable. VITAL SIGNS: Stable. Blood pressure is 115/68, pulse rate 76, temperature 98. HEENT: Examination unremarkable. Conjunctivae are pink. Sclerae anicteric. Oral cavity no lesions. NECK: No JVD or lymph node enlargement. CHEST: Clear to auscultation. HEART: Regular rate and rhythm. ABDOMEN: Soft. Bowel sounds are positive. Mild tenderness in the right upper quadrant area. EXTREMITIES: No pedal edema. SKIN: No rashes. NEUROLOGIC: Alert and oriented x3. No focal deficits. LABS: No labs available from today. IMPRESSION: 1. Acute pancreatitis related to hypertriglyceridemia, doing much better. Amylase and lipase normalized on a clear liquid diet and tolerating well. 2. Hypertension. 3. New onset diabetes mellitus. 4. Severe hypertriglyceridemia with a triglyceride level of more than 5250 at the time of admission to the hospital. RECOMMENDATION: 1. Advance diet as tolerated. 2. I had a lengthy discussion with the patient regarding management of hypertriglyceridemia as well as diabetes mellitus on an outpatient basis. 3. Advised on weight reduction. 4. She can be discharged home today with outpatient followup in 2 weeks. Thank you for this consultation. MMODL / IJN: [id number] /
[2020-05-28 12:05] LABS: Glucose,Whole Blood 195 mg/dL (75-99)
[2020-05-28 13:24] VITALS: BP 108/61; PULSE 73; RESP 19
--- NOTE | 2020-05-29 00:34 | PN ---
PROGRESS NOTE DATE OF SERVICE: 05/28/2020 CHIEF COMPLAINT: Hypertension, diabetes. HISTORY OF PRESENT ILLNESS: This lady was to have been discharged yesterday, and apparently her pharmacy was not open. Today, the medications were resubmitted to the new pharmacy, but the reverted to the inpatient [facility] in the hospital. They will be rewritten manually and she will be discharged. MMSWETA / VYN: [id number] /
== END 2020-05-28 17:00 | disposition home or self-care (01) | DRG 304 ==
LOC: EC 23:35 → 2SICU 05-23 02:06 → 3SCARD 05-23 03:12
PROVIDERS: ADMIT Family Medicine; ATTEND Family Medicine
DX: I16.1 Hypertensive emergency (principal); K85.80 Other acute pancreatitis without necrosis or infection; E11.65 Type 2 diabetes mellitus with hyperglycemia; E78.00 Pure hypercholesterolemia, unspecified; E78.1 Pure hyperglyceridemia; E78.5 Hyperlipidemia, unspecified; F17.210 Nicotine dependence, cigarettes, uncomplicated; F32.9 Major depressive disorder, single episode, unspecified; T46.5X6A Underdosing of other antihypertensive drugs, initial encounter; F41.9 Anxiety disorder, unspecified; J45.909 Unspecified asthma, uncomplicated; K76.0 Fatty (change of) liver, not elsewhere classified; Z79.4 Long term (current) use of insulin; Z79.82 Long term (current) use of aspirin; Z82.49 Family history of ischemic heart disease and other diseases of the circulatory system; Z82.5 Family history of asthma and other chronic lower respiratory diseases; Z83.3 Family history of diabetes mellitus; Z86.73 Personal history of transient ischemic attack (TIA), and cerebral infarction without residual deficits; Z87.442 Personal history of urinary calculi; Z90.710 Acquired absence of both cervix and uterus; Z91.19 Patient's noncompliance with other medical treatment and regimen; Z79.899 Other long term (current) drug therapy; Z86.14 Personal history of Methicillin resistant Staphylococcus aureus infection; Z90.49 Acquired absence of other specified parts of digestive tract; Z71.6 Tobacco abuse counseling; Z91.120 Patient's intentional underdosing of medication regimen due to financial hardship
CPT/HCPCS: 36415; 71046; 71275; 74019; 74176; 76705; 80048; 80053; 80061; 81003; 82150; 83036; 83605; 83690; 83735; 84484; 85025; 85027; 85379; 86301; 87040; 93005; 93306; 96365; 96366; 96375; 99291

== ENCOUNTER → 2021-07-04 | Outpatient (CLI) | payer OTHER | END | disposition home or self-care (01) | LOC: BARWHC3 14:07 | PROVIDERS: ATTEND Surgery | DX: Z53.9 Procedure and treatment not carried out, unspecified reason (principal) ==

== ENCOUNTER 2021-09-15 21:59 | Emergency (ER) | payer OTHER ==
[2021-09-16] MEDS ORDERED: IBUPROFEN 400 MG TAB PO STA (01:45)
--- NOTE | 2021-09-16 01:53 | ED ---
General Adult HPI - General Chief complaint: Chest Pain Stated complaint: Chest Pain Time Seen by Provider: 09/16/21 01:39 Source: patient Mode of arrival: ambulatory - History of Present Illness Initial comments: Patient's 46-year-old woman who presents to be evaluated for fever, body aches, cough and chest pain that is been going on since early yesterday. The patient states she also has noticed that her blood pressures been running higher than normal and she did take extra dose of her hydralazine and it has brought her blood pressure down from what was at home which was in the 200s over 100 reported. Onset/Timin -: days(s) Quality: aching Consistency: constant Improves with: none Worsens with: none Associated Symptoms: chest pain, cough, fever/chills Treatments Prior to Arrival: other - Related Data Home Medications Medication Instructions Recorded Confirmed ALPRAZolam [Xanax] 1 mg PO BID PRN 07/30/18 05/23/20 HYDROcodone/APAP 5-325MG [[place] 1 tab PO DAILY PRN 05/23/20 05/23/20 5-325] Previous Rx's Medication Instructions Recorded Aspirin 81 mg PO DAILY #100 chew 05/27/20 Atorvastatin [Lipitor] 80 mg PO HS #30 tab 05/27/20 Fenofibrate [Lofibra] 160 mg PO DAILY #30 tab 05/27/20 INSULIN ASPART (NovoLOG) [NovoLOG 14 unit SQ AC-TID #90 vial 05/27/20 (formulary)] Insulin Detemir (Levemir) [Levemir] 50 unit SQ DAILY@0700 #30 syr 05/27/20 Metoprolol Tartrate [Lopressor] 50 mg PO BID #60 tab 05/27/20 amLODIPine [Norvasc] 10 mg PO DAILY #30 tab 05/27/20 cloNIDine HCL [Catapres] 0.1 mg PO TID #90 tab 05/27/20 hydrALAZINE HCL [Apresoline] 50 mg PO TID #90 tab 05/27/20 lisinopriL [Zestril] 40 mg PO DAILY #30 tab 05/27/20 Allergies Allergy/AdvReac Type Severity Reaction Status Date / Time No Known Allergies Allergy Verified 05/23/20 09:02 Review of Systems ROS Statement: Those systems with pertinent positive or pertinent negative responses have been documented in the HPI. ROS Other: All systems not noted in ROS Statement are negative. Constitutional: Reports: fever, chills, weakness Respiratory: Reports: cough. Denies: dyspnea, hemoptysis Cardiovascular: Reports: chest pain. Denies: palpitations, orthopnea, edema, syncope Gastrointestinal: Denies: abdominal pain, vomiting, diarrhea Genitourinary: Denies: dysuria, hematuria Musculoskeletal: Reports: myalgia Skin: Denies: rash Neurological: Denies: headache, weakness, numbness Past Medical History Past Medical History: Asthma, CVA/TIA, Hyperlipidemia, Hypertension Additional Past Medical History / Comment(s): Kidney stones, small stroke 2011, Hiatal hernia, History of Any Multi-Drug Resistant Organisms: MRSA Date of last positivie culture/infection: 12/11/2008, MDRO Source:: Abd wall wound Past Surgical History: Section, Cholecystectomy, Hysterectomy Additional Past Surgical History / Comment(s): Kidney stent 16 yrs ago on left due to kidney stone, incision and drainage of abscess on abdomen on left side MRSA, Past Anesthesia/Blood Transfusion Reactions: No Reported Reaction Past Psychological History: Anxiety, Depression Smoking Status: Current every day smoker Past Alcohol Use History: None Reported Past Drug Use History: None Reported - Past Family History Mother Family Medical History: Cancer, COPD, Diabetes Mellitus General Exam General appearance: alert, in no apparent distress Head exam: Present: atraumatic, normocephalic Eye exam: Present: normal appearance. Absent: scleral icterus, conjunctival injection Neck exam: Present: normal inspection, full ROM. Absent: tenderness Respiratory exam: Present: rales Cardiovascular Exam: Present: regular rate, normal rhythm, normal heart sounds. Absent: systolic murmur, diastolic murmur, rubs, gallop GI/Abdominal exam: Present: soft. Absent: distended, tenderness, guarding, rebound, rigid, mass Extremities exam: Present: normal inspection, normal capillary refill. Absent: pedal edema, calf tenderness Back exam: Present: normal inspection. Absent: CVA tenderness (R), CVA tenderness (L) Neurological exam: Present: alert Skin exam: Present: warm, dry, intact, normal color. Absent: rash Course Vital Signs 09/15/21 22:22 Temperature 99.7 F H Pulse Rate 99 Respiratory 20 Rate Blood Pressure 162/82 O2 Sat by Pulse 98 Oximetry Medical Decision Making - Lab Data Result diagrams: 09/16/21 02:15 09/16/21 02:15 Lab Results 09/15/21 09/16/21 09/16/21 Range/Units 22:28 02:15 02:15 WBC 7.4 (3.8-10.6) k/uL RBC 4.54 (3.80-5.40) m/uL Hgb 13.1 (11.4-16.0) gm/dL Hct 40.4 (34.0-46.0) % MCV 89.2 (80.0-100.0) fL MCH 28.9 (25.0-35.0) pg MCHC 32.4 (31.0-37.0) g/dL RDW 14.2 (11.5-15.5) % Plt Count 192 (150-450) k/uL MPV 9.0 Neutrophils % 54 % Lymphocytes % 34 % Monocytes % 8 % Eosinophils % 1 % Basophils % 1 % Neutrophils # 4.0 (1.3-7.7) k/uL Lymphocytes # 2.5 (1.0-4.8) k/uL Monocytes # 0.6 (0-1.0) k/uL Eosinophils # 0.0 (0-0.7) k/uL Basophils # 0.0 (0-0.2) k/uL PT 10.6 (9.0-12.0) sec INR 1.0 (<1.2) APTT 28.5 (22.0-30.0) sec D-Dimer 0.94 H (<0.60) mg/L FEU Sodium (137-145) mmol/L Potassium (3.5-5.1) mmol/L Chloride (98-107) mmol/L Carbon Dioxide (22-30) mmol/L Anion Gap mmol/L BUN (7-17) mg/dL Creatinine (0.52-1.04) mg/dL Est GFR (CKD-EPI)AfAm (>60 ml/min/1.73 sqM) Est GFR (CKD-EPI)NonAf (>60 ml/min/1.73 sqM) Glucose (74-99) mg/dL Calcium (8.4-10.2) mg/dL Magnesium (1.6-2.3) mg/dL Total Bilirubin (0.2-1.3) mg/dL AST (14-36) U/L ALT (4-34) U/L Alkaline Phosphatase (38-126) U/L Troponin I (0.000-0.034) ng/mL Total Protein (6.3-8.2) g/dL Albumin (3.5-5.0) g/dL Coronavirus (PCR) Detected A (Not Detectd) 09/16/21 09/16/21 Range/Units 02:15 02:15 WBC (3.8-10.6) k/uL RBC (3.80-5.40) m/uL Hgb (11.4-16.0) gm/dL Hct (34.0-46.0) % MCV (80.0-100.0) fL MCH (25.0-35.0) pg MCHC (31.0-37.0) g/dL RDW (11.5-15.5) % Plt Count (150-450) k/uL MPV Neutrophils % % Lymphocytes % % Monocytes % % Eosinophils % % Basophils % % Neutrophils # (1.3-7.7) k/uL Lymphocytes # (1.0-4.8) k/uL Monocytes # (0-1.0) k/uL Eosinophils # (0-0.7) k/uL Basophils # (0-0.2) k/uL PT (9.0-12.0) sec INR (<1.2) APTT (22.0-30.0) sec D-Dimer (<0.60) mg/L FEU Sodium 137 (137-145) mmol/L Potassium 3.5 (3.5-5.1) mmol/L Chloride 103 (98-107) mmol/L Carbon Dioxide 23 (22-30) mmol/L Anion Gap 11 mmol/L BUN 16 (7-17) mg/dL Creatinine 0.75 (0.52-1.04) mg/dL Est GFR (CKD-EPI)AfAm >90 (>60 ml/min/1.73 sqM) Est GFR (CKD-EPI)NonAf >90 (>60 ml/min/1.73 sqM) Glucose 161 H (74-99) mg/dL Calcium 9.0 (8.4-10.2) mg/dL Magnesium 2.2 (1.6-2.3) mg/dL Total Bilirubin 0.2 (0.2-1.3) mg/dL AST 47 H (14-36) U/L ALT 40 H (4-34) U/L Alkaline Phosphatase 63 (38-126) U/L Troponin I <0.012 (0.000-0.034) ng/mL Total Protein 6.8 (6.3-8.2) g/dL Albumin 3.9 (3.5-5.0) g/dL Coronavirus (PCR) (Not Detectd) Disposition Clinical Impression: COVID-19 virus infection Disposition: HOME SELF-CARE Condition: Good Instructions (If sedation given, give patient instructions): Coronavirus Disease 2019 (COVID-19) Is patient prescribed a controlled substance at d/c from ED?: No Referrals: Irvin Haile MD [Primary Care Provider] - 1-2 days
[2021-09-16] MEDS ORDERED: SODIUM CHLORIDE 0.9% 50 ML IVPB ONE (02:30)
[2021-09-16 02:43] LABS: Basophils % (A) 1 %; Eosinophils % (A) 1 %; HCT 40.4 % (34.0-46.0); HGB 13.1 gm/dL (11.4-16.0); Lymphocytes # (A) 2.5 k/uL (1.0-4.8); Lymphocytes % (A) 34 %; MCH 28.9 pg (25.0-35.0); MCHC 32.4 g/dL (31.0-37.0); MCV 89.2 fL (80.0-100.0); Monocytes # (A) 0.6 k/uL (0-1.0); Monocytes % (A) 8 %; Neutrophils % (A) 54 %; Platelet Count 192 k/uL (150-450); RBC 4.54 m/uL (3.80-5.40); RDW 14.2 % (11.5-15.5); WBC 7.4 k/uL (3.8-10.6)
[2021-09-16 02:53] LABS: Partial Thromboplastin Time 28.5 sec (22.0-30.0); Prothrombin Time 10.6 sec (9.0-12.0)
[2021-09-16] MEDS ORDERED: BAMLANIVIMAB (EUA) 700 MG, ETESEVIMAB (EUA) 1,400 MG in SODIUM CHLORIDE 0.9% 100 ML IVPB ONE (03:00)
[2021-09-16 03:04] LABS: ALT 40 U/L (4-34); AST 47 U/L (14-36); African American GFR (CKD) >90 (>60 ml/min/1.73 sqM); Albumin 3.9 g/dL (3.5-5.0); Alkaline Phosphatase 63 U/L (38-126); Anion Gap 11 mmol/L; Blood Urea Nitrogen 16 mg/dL (7-17); Carbon Dioxide 23 mmol/L (22-30); Chloride 103 mmol/L (98-107); Glucose 161 mg/dL (74-99); Magnesium 2.2 mg/dL (1.6-2.3); Non-African American GFR(CKD) >90 (>60 ml/min/1.73 sqM); Potassium 3.5 mmol/L (3.5-5.1); Sodium 137 mmol/L (137-145); Total Bilirubin 0.2 mg/dL (0.2-1.3); Total Protein 6.8 g/dL (6.3-8.2)
--- NOTE | 2021-09-16 04:00 | XR ---
EXAMINATION TYPE: XR chest 1V portable DATE OF EXAM: 09/16/2021 COMPARISON: May 23, 2020 HISTORY: Cough TECHNIQUE: Single view FINDINGS: Heart and mediastinum are normal. Lungs are clear. Diaphragm is normal. Bony thorax is norm al. IMPRESSION: Normal chest. No change.
--- NOTE | 2021-09-16 07:25 | CT ---
EXAM: CT Angiography Chest With Intravenous Contrast CLINICAL HISTORY: ITS.REASON CT Reason: chest pain, possible PE TECHNIQUE: Axial computed tomographic angiography images of the chest with intravenous contrast. CTDI is 25.67 mGy and DLP is 398.8 mGy-cm. This CT exam was performed using one or more of the following dose reduction techniques: automated exposure control, adjustment of the mA and/or kV according to patient size, and/or use of iterative reconstruction technique. MIP reconstructed images were created and reviewed. COMPARISON: No relevant prior studies available. FINDINGS: Pulmonary arteries: No acute pulmonary embolism. Evaluation is limited due to suboptimal contrast bolus timing. Aorta: No acute findings. No thoracic aortic aneurysm. Lungs: The spence atelectasis. Pleural space: No focal infiltrate, pleural effusion, or pneumothorax. Heart: Cardiomegaly. Trace pericardial fluid. No evidence of RV dysfunction. Bones/joints: Degenerative changes of the spine. Right lower lobe calcified granuloma. No acute fracture. No dislocation. Soft tissues: Unremarkable. Lymph nodes: Unremarkable. No enlarged lymph nodes. Liver: Severe hepatic steatosis. IMPRESSION: 1. No acute pulmonary embolism. Evaluation is limited due to suboptimal contrast bolus timing. 2. No focal infiltrate, pleural effusion, or pneumothorax. 3. Cardiomegaly. Trace pericardial fluid. 4. Severe hepatic steatosis. Atrophic, left kidney which is partially included in the [id number].
[2021-09-16 07:59] VITALS: BP 146/85; PULSE 62; RESP 18; TEMP 98.4
== END 2021-09-16 07:59 | disposition home or self-care (01) ==
LOC: EC 21:59
DX: U07.1 COVID-19 (principal); I10 Essential (primary) hypertension; J45.909 Unspecified asthma, uncomplicated; E78.5 Hyperlipidemia, unspecified; F32.A Depression, unspecified; F41.9 Anxiety disorder, unspecified; F17.200 Nicotine dependence, unspecified, uncomplicated; Z79.4 Long term (current) use of insulin; Z79.82 Long term (current) use of aspirin; Z79.899 Other long term (current) drug therapy
CPT/HCPCS: 36415; 93005; 85379; 80053; 83735; 84484; 85025; 85610; 85730; 87635; 71045; 71275; 99285; Q9967; J3490

== ENCOUNTER 2021-11-25 08:06 | Observation (INO) | payer OTHER ==
[2021-11-25] MEDS ORDERED: ASPIRIN 81 MG PO STA (08:23)
[2021-11-25] MEDS ORDERED: NITROGLYCERIN SL TABS 0.4 MG TAB SUBLINGUAL STA ×3 (08:23)
--- NOTE | 2021-11-25 08:28 | ED ---
General Adult HPI - General Chief complaint: Chest Pain Stated complaint: chest pain Time Seen by Provider: 11/25/21 08:13 Source: patient, RN notes reviewed Mode of arrival: ambulatory Limitations: no limitations - History of Present Illness Initial comments: Patient is a pleasant 46 roll female presenting to the emergency Department with chest discomfort. Onset of symptoms was around 6 AM while doing light exertion at work. Discomfort feels like pressure or sharp. There is some discomfort in the right shoulder as well. Majority of discomfort is sternal. No history of similar symptoms previously. Patient may be slightly short of breath. Patient has had some sweating the past 3 days however questions if this is from being premenopausal. No nausea vomiting. No leg pain or leg swelling. - Related Data Home Medications Medication Instructions Recorded Confirmed ALPRAZolam [Xanax] 1 mg PO BID PRN 07/30/18 11/25/21 Albuterol Nebulized [Ventolin 2.5 mg INHALATION RT-QID PRN 11/25/21 11/25/21 Nebulized] Albuterol Sulfate [Proair Hfa] 2 puff INHALATION RT-QID PRN 11/25/21 11/25/21 Aspirin EC [Ecotrin Low Dose] 81 mg PO DAILY 11/25/21 11/25/21 Benazepril HCl 40 mg PO DAILY 11/25/21 11/25/21 Chlorthalidone 25 mg PO DAILY 11/25/21 11/25/21 DULoxetine HCL [Cymbalta] 60 mg PO DAILY 11/25/21 11/25/21 Ergocalciferol [Vitamin D2 (1250 1,250 mcg PO QMONTHLY 11/25/21 11/25/21 Mcg = 07453 Iu)] HYDROcodone/APAP 7.5-325MG [[place] 1 tab PO TID PRN 11/25/21 11/25/21 7.5-325] Ibuprofen [Motrin] 800 mg PO QID 11/25/21 11/25/21 Insulin Aspart [NovoLOG Flexpen] 20 units SQ AC-TID PRN 11/25/21 11/25/21 Insulin Glargine,Hum.rec.anlog 60 unit SQ HS 11/25/21 11/25/21 [Lantus Solostar Pen] Ipratropium Nebulized [Atrovent 0.5 mg INHALATION RT-QID PRN 11/25/21 11/25/21 Nebulized 0.2 MG/ML] Metoprolol Tartrate [Lopressor] 100 mg PO DAILY 11/25/21 11/25/21 Montelukast [Singulair] 10 mg PO HS 11/25/21 11/25/21 Oxybutynin Chloride [Ditropan XL] 5 mg PO BID 11/25/21 11/25/21 metFORMIN HCL 500 mg PO BID 11/25/21 11/25/21 Previous Rx's Medication Instructions Recorded Atorvastatin [Lipitor] 80 mg PO HS #30 tab 05/27/20 amLODIPine [Norvasc] 10 mg PO DAILY #30 tab 05/27/20 Allergies Allergy/AdvReac Type Severity Reaction Status Date / Time No Known Allergies Allergy Verified 11/25/21 09:05 Review of Systems ROS Statement: Those systems with pertinent positive or pertinent negative responses have been documented in the HPI. ROS Other: All systems not noted in ROS Statement are negative. Constitutional: Denies: fever Eyes: Denies: eye pain ENT: Denies: ear pain Respiratory: Denies: cough Cardiovascular: Reports: chest pain Endocrine: Denies: fatigue Gastrointestinal: Denies: abdominal pain Genitourinary: Denies: dysuria Musculoskeletal: Denies: back pain Skin: Denies: rash Neurological: Denies: weakness Past Medical History Past Medical History: Asthma, CVA/TIA, Hyperlipidemia, Hypertension Additional Past Medical History / Comment(s): Kidney stones, small stroke 2011, Hiatal hernia, History of Any Multi-Drug Resistant Organisms: MRSA Date of last positivie culture/infection: 12/11/2008, MDRO Source:: Abd wall wound Past Surgical History: Section, Cholecystectomy, Hysterectomy Additional Past Surgical History / Comment(s): Kidney stent 16 yrs ago on left due to kidney stone, incision and drainage of abscess on abdomen on left side MRSA, Past Anesthesia/Blood Transfusion Reactions: No Reported Reaction Past Psychological History: Anxiety, Depression Smoking Status: Current every day smoker Past Alcohol Use History: None Reported Past Drug Use History: None Reported - Past Family History Mother Family Medical History: Cancer, COPD, Diabetes Mellitus General Exam Limitations: no limitations General appearance: alert, in no apparent distress Head exam: Present: normocephalic Eye exam: Present: normal appearance Neck exam: Present: normal inspection Respiratory exam: Present: normal lung sounds bilaterally. Absent: chest wall tenderness Cardiovascular Exam: Present: regular rate, normal rhythm Expanded Peripheral pulses: 2+: Radial (R), Radial (L), Posterior Tibialis (R), Posterior Tibialis (L) GI/Abdominal exam: Present: soft. Absent: tenderness Extremities exam: Present: normal inspection. Absent: pedal edema, calf tenderness Neurological exam: Present: alert Psychiatric exam: Present: normal affect, normal mood Skin exam: Present: normal color Course Vital Signs 11/25/21 11/25/21 11/25/21 08:08 08:57 09:51 Temperature 97.9 F Pulse Rate 70 96 89 Respiratory 20 18 18 Rate Blood Pressure 175/97 161/101 142/87 O2 Sat by Pulse 96 100 99 Oximetry EKG Findings - EKG Comments: EKG Findings:: Sinus rhythm 80. MN 138. QRS 89. QT 409. QTC 446. Normal axis. Normal QRS. No acute ST change. Medical Decision Making - Medical Decision Making Patient reevaluated and is improved following nitroglycerin however not completely resolved. Patient updated on results and plan. Case was discussed with Dr. Haile, who will admit his patient. - Lab Data Result diagrams: 11/25/21 08:44 11/25/21 08:44 Lab Results 11/25/21 11/25/21 11/25/21 Range/Units 08:44 08:44 08:44 WBC 7.0 (3.8-10.6) k/uL RBC 4.71 (3.80-5.40) m/uL Hgb 13.9 (11.4-16.0) gm/dL Hct 43.1 (34.0-46.0) % MCV 91.4 (80.0-100.0) fL MCH 29.6 (25.0-35.0) pg MCHC 32.4 (31.0-37.0) g/dL RDW 13.9 (11.5-15.5) % Plt Count 222 (150-450) k/uL MPV 8.6 Neutrophils % 53 % Lymphocytes % 41 % Monocytes % 3 % Eosinophils % 1 % Basophils % 0 % Neutrophils # 3.7 (1.3-7.7) k/uL Lymphocytes # 2.9 (1.0-4.8) k/uL Monocytes # 0.2 (0-1.0) k/uL Eosinophils # 0.1 (0-0.7) k/uL Basophils # 0.0 (0-0.2) k/uL PT 10.4 (9.0-12.0) sec INR 0.9 (<1.2) APTT 26.8 (22.0-30.0) sec D-Dimer 0.33 (<0.60) mg/L FEU Sodium 139 (137-145) mmol/L Potassium 3.4 L (3.5-5.1) mmol/L Chloride 105 (98-107) mmol/L Carbon Dioxide 24 (22-30) mmol/L Anion Gap 10 mmol/L BUN 14 (7-17) mg/dL Creatinine 0.73 (0.52-1.04) mg/dL Est GFR (CKD-EPI)AfAm >90 (>60 ml/min/1.73 sqM) Est GFR (CKD-EPI)NonAf >90 (>60 ml/min/1.73 sqM) Glucose 195 H (74-99) mg/dL Calcium 8.9 (8.4-10.2) mg/dL Magnesium 2.0 (1.6-2.3) mg/dL Total Bilirubin 0.5 (0.2-1.3) mg/dL AST 22 (14-36) U/L ALT 29 (4-34) U/L Alkaline Phosphatase 84 (38-126) U/L Troponin I (0.000-0.034) ng/mL Total Protein 7.5 (6.3-8.2) g/dL Albumin 4.4 (3.5-5.0) g/dL 11/25/21 Range/Units 08:44 WBC (3.8-10.6) k/uL RBC (3.80-5.40) m/uL Hgb (11.4-16.0) gm/dL Hct (34.0-46.0) % MCV (80.0-100.0) fL MCH (25.0-35.0) pg MCHC (31.0-37.0) g/dL RDW (11.5-15.5) % Plt Count (150-450) k/uL MPV Neutrophils % % Lymphocytes % % Monocytes % % Eosinophils % % Basophils % % Neutrophils # (1.3-7.7) k/uL Lymphocytes # (1.0-4.8) k/uL Monocytes # (0-1.0) k/uL Eosinophils # (0-0.7) k/uL Basophils # (0-0.2) k/uL PT (9.0-12.0) sec INR (<1.2) APTT (22.0-30.0) sec D-Dimer (<0.60) mg/L FEU Sodium (137-145) mmol/L Potassium (3.5-5.1) mmol/L Chloride (98-107) mmol/L Carbon Dioxide (22-30) mmol/L Anion Gap mmol/L BUN (7-17) mg/dL Creatinine (0.52-1.04) mg/dL Est GFR (CKD-EPI)AfAm (>60 ml/min/1.73 sqM) Est GFR (CKD-EPI)NonAf (>60 ml/min/1.73 sqM) Glucose (74-99) mg/dL Calcium (8.4-10.2) mg/dL Magnesium (1.6-2.3) mg/dL Total Bilirubin (0.2-1.3) mg/dL AST (14-36) U/L ALT (4-34) U/L Alkaline Phosphatase (38-126) U/L Troponin I <0.012 (0.000-0.034) ng/mL Total Protein (6.3-8.2) g/dL Albumin (3.5-5.0) g/dL - Radiology Data Radiology results: image reviewed (Chest x-ray shows no acute process) Disposition Clinical Impression: Chest pain Disposition: ADMITTED IP TO THIS [facility] Is patient prescribed a controlled substance at d/c from ED?: No Referrals: Irvin Haile MD [Primary Care Provider] - 1-2 days Decision Time: 10:55
[2021-11-25 09:07] LABS: Basophils % (A) 0 %; Eosinophils # (A) 0.1 k/uL (0-0.7); Eosinophils % (A) 1 %; HCT 43.1 % (34.0-46.0); HGB 13.9 gm/dL (11.4-16.0); Lymphocytes # (A) 2.9 k/uL (1.0-4.8); Lymphocytes % (A) 41 %; MCH 29.6 pg (25.0-35.0); MCHC 32.4 g/dL (31.0-37.0); MCV 91.4 fL (80.0-100.0); Mean Platelet Volume 8.6; Monocytes # (A) 0.2 k/uL (0-1.0); Monocytes % (A) 3 %; Neutrophils # (A) 3.7 k/uL (1.3-7.7); Neutrophils % (A) 53 %; Platelet Count 222 k/uL (150-450); RBC 4.71 m/uL (3.80-5.40); RDW 13.9 % (11.5-15.5)
[2021-11-25 09:21] LABS: ALT 29 U/L (4-34); AST 22 U/L (14-36); African American GFR (CKD) >90 (>60 ml/min/1.73 sqM); Albumin 4.4 g/dL (3.5-5.0); Alkaline Phosphatase 84 U/L (38-126); Anion Gap 10 mmol/L; Blood Urea Nitrogen 14 mg/dL (7-17); Calcium 8.9 mg/dL (8.4-10.2); Carbon Dioxide 24 mmol/L (22-30); Chloride 105 mmol/L (98-107); Glucose 195 mg/dL (74-99); Non-African American GFR(CKD) >90 (>60 ml/min/1.73 sqM); Potassium 3.4 mmol/L (3.5-5.1); Sodium 139 mmol/L (137-145); Total Bilirubin 0.5 mg/dL (0.2-1.3); Total Protein 7.5 g/dL (6.3-8.2)
[2021-11-25 09:23] LABS: INR 0.9 (<1.2); Partial Thromboplastin Time 26.8 sec (22.0-30.0); Prothrombin Time 10.4 sec (9.0-12.0)
--- NOTE | 2021-11-25 09:50 | XR ---
EXAMINATION TYPE: XR chest 2V DATE OF EXAM: 11/25/2021 COMPARISON: Chest x-ray 09/16/2021 HISTORY: Chest pain TECHNIQUE: Frontal and lateral views of the chest are obtained. FINDINGS: There is no focal air space opacity, pleural effusion, or pneumothorax seen. The cardiac silhouette size is within normal limits. There are overlying leads. Surgical clips are present in th e right upper quadrant. The osseous structures are intact. IMPRESSION: No acute cardiopulmonary process.
[2021-11-25] MEDS ORDERED: NITROGLYCERIN SL TABS 0.4 MG TAB SUBLINGUAL PRN (10:55)
[2021-11-25 12:11] LABS: Glucose,Whole Blood 170 mg/dL (75-99)
[2021-11-25] MEDS: NITROGLYCERIN OINT 1 INCH/GM PACKET TOPICAL SCH ×2 (12:50→18:07)
[2021-11-25 14:22] VITALS: BMI 29.9
[2021-11-25] MEDS: ACETAMINOPHEN TAB 325 MG TAB PO PRN (16:27)
[2021-11-25 17:12] LABS: Glucose,Whole Blood 336 mg/dL (75-99)
[2021-11-25] MEDS ORDERED: INSULIN ASPART 100 UNIT/ML SQ PRN (19:12)
[2021-11-25 20:20] LABS: Glucose,Whole Blood 169 mg/dL (75-99)
[2021-11-25] MEDS: POTASSIUM CHLORIDE ER 20 MEQ TAB.ER PO SCH (20:31)
[2021-11-25] MEDS ORDERED: INSULIN DETEMIR (LEVEMIR) 100 UNIT/ML SYR SQ SCH (21:00)
--- NOTE | 2021-11-25 21:15 | HP ---
HISTORY AND PHYSICAL CHIEF COMPLAINT: Chest pain. HISTORY OF PRESENT ILLNESS: This is another admission for this 46-year-old female. She has had problems in the past with chest pain. She has a history of hypertension, hyperlipidemia and anxiety. She presented to the emergency room with chest pain radiating to the right shoulder. She had no diaphoresis or shortness of breath. Studies in the ER were negative and she was admitted for observation. REVIEW OF SYSTEMS: She has had no other complaints. She has had no shortness of breath, orthopnea, PND, murmurs, rheumatic fever, etc. Past medical history, family history, and personal and social histories find that she is NOT ALLERGIC TO ANY MEDICATION and she uses an albuterol nebulizer as well as montelukast. She also is diabetic and uses NovoLog 20 units three times a day. She also takes Xanax, ProAir, gabapentin, hydralazine, Lantus 70 units a day, amlodipine, oxybutynin and Lipitor. She used to smoke but does not any longer. PHYSICAL EXAMINATION: Blood pressure 142/90 with a pulse of 81, respirations of 30 and she is afebrile. In general she appeared to be in no acute distress. Skin color is normal. Skin is warm and dry. Lymph nodes are not enlarged. Head, ears, eyes, nose, mouth and throat were normal. Neck veins not distended. Chest is clear to auscultation and percussion. Cardiac exam is normal. No murmurs or extra sounds. Abdomen is protuberant, soft and nontender. Bowel sounds are present. Extremities are normal. Neurologically she is intact. She is admitted to the hospital with diagnoses: 1. Atypical chest pain. 2. History of hypertension. 3. Insulin-dependent diabetes mellitus. 4. Reactive airway disease. 5. Hyperlipidemia. 6. Hypertension. PLAN: 1. Bedrest. 2. IV fluids. 3. Serial EKGs and enzymes. MMODL / IJN: [id number] /
[2021-11-26] MEDS: NITROGLYCERIN OINT 1 INCH/GM PACKET TOPICAL SCH ×2 (00:17→05:29)
[2021-11-26 07:31] LABS: Glucose,Whole Blood 137 mg/dL (75-99)
[2021-11-26 08:39] VITALS: RESP 15
[2021-11-26] MEDS: POTASSIUM CHLORIDE ER 20 MEQ TAB.ER PO SCH (08:54)
[2021-11-26] MEDS: ACETAMINOPHEN TAB 325 MG TAB PO PRN (08:54)
[2021-11-26] MEDS ORDERED: ASPIRIN 325 MG TAB PO SCH (09:00)
[2021-11-26 10:51] LABS: Chol/HDL Ratio 3.06 Ratio
--- NOTE | 2021-11-26 11:22 | P.CRDCN ---
History of Present Illness Consult date: 11/26/21 History of present illness: HISTORY OF PRESENT ILLNESS: This is a 46 year old female with a past medical history significant for hypertension, diabetes, and nicotine dependence. 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 We have been asked to see the patient in consultation for chest pain. Patient examined at the bedside. Patient presented to the hospital with a chief complaint of right-sided chest discomfort. Patient denied any radiation of the pain. She denied any shortness of breath. Denied any nausea or vomiting. The patient received nitroglycerin in the emergency room which apparently helped with her pain. At the time of examination, the patient denies chest pain or pressure. * EKG reveals sinus mechanism with signs of LVH * Chest xray negative for acute process * Laboratory data: W BC 7.0. Hemoglobin 13.9. Platelet count 222. D-dimer 0.33. Sodium 139. Potassium 3.4. BUN 14. Creatinine 0.73. Troponin negative x 3. * Current home cardiac medications include metoprolol tartrate 100 mg daily, chlorthalidone 25 mg daily, Benzapril 40 mg daily, Lipitor 80 mg daily, aspirin 81 mg daily, Norvasc 10 times daily * Most recent echocardiogram obtained in May 2020 revealed ejection fraction 50-55%, [id number] aortic regurgitation, trace mitral regurgitation, and mild tricuspid regurgitation * Patient underwent dobutamine stress test in 2018 which was negative for ischemia REVIEW OF SYSTEMS: At the time of my exam: CONSTITUTIONAL: Denies fever or chills. HEENT: Denies blurred vision, vision changes, or eye pain. Denies hemoptysis CARDIOVASCULAR: Denies chest pain. Denies orthopnea. Denies PND. Denies palpitations RESPIRATORY: Denies shortness of breath. GASTROINTESTINAL: Denies abdominal pain. Denies nausea or vomiting. HEMATOLOGIC: Denies bleeding disorders. GENITOURINARY: Denies any blood in urine. SKIN: Denies pruitis. Denies rash. PHYSICAL EXAM: VITAL SIGNS: Reviewed. GENERAL: Well-developed in no acute distress. HEENT: Head is normocephalic. Pupils are equal, round. Sclerae anicteric. Mucous membranes of the mouth are moist. Neck supple. No JVD or thyromegaly LUNGS: Respirations even and unlabored. Lungs essentially clear to auscultation bilaterally. HEART: Regular rate and rhythm. S1 and S2 heard. ABDOMEN: Soft. Nondistended. Nontender. EXTREMITIES: Normal range of motion. No clubbing or cyanosis. Peripheral pulses intact. No lower extremity edema NEUROLOGIC: Awake and alert. Oriented x 3. ASSESSMENT: Chest pain, atypical, troponin negative 3 Hypertension Diabetes Nicotine dependence PLAN: Resume home cardiac medications No need to repeat echocardiogram Patient to undergo stress echo today to assess for ischemia. If negative she may be discharged home from a cardiac standpoint and follow up on an outpatient basis Nurse practitioner note has been reviewed by physician. Signing provider agrees with the documented findings, assessment, and plan of care. Past Medical History Past Medical History: Asthma, CVA/TIA, Hyperlipidemia, Hypertension Additional Past Medical History / Comment(s): 2011 "small stroke" no deficits, IDDM type II, neuropathy bilateral feet, UTI, urinary freqency, pancreatitis, migraines, cervical pain DDD/herniated discs, kidney stones, hiatal hernia, covid 08/2021. History of Any Multi-Drug Resistant Organisms: MRSA Date of last positivie culture/infection: 12/11/2008, MDRO Source:: Abd wall wound Past Surgical History: Section, Cholecystectomy, Hysterectomy Additional Past Surgical History / Comment(s): Kidney stent 16 yrs ago on left due to kidney stone, incision and drainage of abscess on abdomen on left side MRSA, Past Anesthesia/Blood Transfusion Reactions: No Reported Reaction Smoking Status: Current every day smoker - Past Family History Mother Family Medical History: Cancer, COPD, Diabetes Mellitus Additional Family Medical History / Comment(s): Lung cancer. Father Family Medical History: Diabetes Mellitus Medications and Allergies Home Medications Medication Instructions Recorded Confirmed Type ALPRAZolam [Xanax] 1 mg PO BID PRN 07/30/18 11/25/21 History Atorvastatin [Lipitor] 80 mg PO HS #30 tab 05/27/20 11/25/21 Rx amLODIPine [Norvasc] 10 mg PO DAILY #30 tab 05/27/20 11/25/21 Rx Albuterol Nebulized [Ventolin 2.5 mg INHALATION RT-QID PRN 11/25/21 11/25/21 History Nebulized] Albuterol Sulfate [Proair Hfa] 2 puff INHALATION RT-QID PRN 11/25/21 11/25/21 Hi story Aspirin EC [Ecotrin Low Dose] 81 mg PO DAILY 11/25/21 11/25/21 History Benazepril HCl 40 mg PO DAILY 11/25/21 11/25/21 History Chlorthalidone 25 mg PO DAILY 11/25/21 11/25/21 History DULoxetine HCL [Cymbalta] 60 mg PO DAILY 11/25/21 11/25/21 History Ergocalciferol [Vitamin D2 (1250 1,250 mcg PO QMONTHLY 11/25/21 11/25/21 History Mcg = 93593 Iu)] HYDROcodone/APAP 7.5-325MG [[place] 1 tab PO TID PRN 11/25/21 11/25/21 History 7.5-325] Ibuprofen [Motrin] 800 mg PO QID 11/25/21 11/25/21 History Insulin Aspart [NovoLOG Flexpen] 20 units SQ AC-TID PRN 11/25/21 11/25/21 H istory Insulin Glargine,Hum.rec.anlog 60 unit SQ HS 11/25/21 11/25/21 History [Lantus Solostar Pen] Ipratropium Nebulized [Atrovent 0.5 mg INHALATION RT-QID PRN 11/25/21 11/25/21 History Nebulized 0.2 MG/ML] Metoprolol Tartrate [Lopressor] 100 mg PO DAILY 11/25/21 11/25/21 History Montelukast [Singulair] 10 mg PO HS 11/25/21 11/25/21 History Oxybutynin Chloride [Ditropan XL] 5 mg PO BID 11/25/21 11/25/21 History metFORMIN HCL 500 mg PO BID 11/25/21 11/25/21 History Allergies Allergy/AdvReac Type Severity Reaction Status Date / Time No Known Allergies Allergy Verified 11/25/21 09:05 Physical Exam Vitals: Vital Signs Temp Pulse Pulse Pulse Resp BP BP 11/26/21 08:00 15 11/26/21 07:30 98.7 F 79 15 162/83 11/26/21 02:20 98.3 F 70 20 167/98 11/26/21 01:52 79 20 11/25/21 20:00 79 20 11/25/21 19:34 11/25/21 19:28 98.3 F 79 20 157/92 11/25/21 15:00 97.7 F 98 18 164/70 11/25/21 14:00 98 18 11/25/21 12:17 97.8 F 99 18 144/86 11/25/21 11:32 97.7 F 91 16 151/85 Pulse Ox 11/26/21 08:00 11/26/21 07:30 98 11/26/21 02:20 99 11/26/21 01:52 11/25/21 20:00 11/25/21 19:34 99 11/25/21 19:28 99 11/25/21 15:00 99 11/25/21 14:00 11/25/21 12:17 100 11/25/21 11:32 99 Intake and Output 11/25/21 11/26/21 11/26/21 22:59 06:59 14:59 Intake Total 120 0 Balance 120 0 Intake: Oral 120 0 Other: Voiding Method Toilet Toilet Toilet # Voids 1 1 Results 11/25/21 08:44 11/25/21 08:44 Cardiac Enzymes 11/25/21 11/25/21 Range/Units 11:12 15:34 Troponin I <0.012 <0.012 (0.000-0.034) ng/mL Lipids 11/26/21 Range/Units 07:22 Triglycerides 142.00 (0.00-149.00) mg/dL Cholesterol 210.00 H (0.00-200.00) mg/dL HDL Cholesterol 68.60 H (40.00-60.00) mg/dL Cholesterol/HDL Ratio 3.06 Ratio Current Medications Generic Name Dose Route Start Last Admin Trade Name Patrick PRN Reason Stop Dose Admin Acetaminophen 650 mg 11/25/21 15:57 11/26/21 08:54 Acetaminophen Tab 325 Mg Tab PO 650 mg Q4HR PRN Administration Fever and/ or Pain Amlodipine Besylate 10 mg 11/26/21 11:15 Amlodipine 10 Mg Tab PO DAILY [facility] Aspirin 325 mg 11/26/21 09:00 11/26/21 08:54 Aspirin 325 Mg Tab PO 325 mg DAILY MAE Administration Chlorthalidone 25 mg 11/26/21 11:15 Chlorthalidone 25 Mg Tab PO DAILY [facility] Insulin Detemir 60 unit 11/25/21 21:00 11/25/21 20:31 Insulin Detemir (Levemir) 100 Unit/Ml Syr SQ 60 unit HS MAE Administration Nitroglycerin 0.4 mg 11/25/21 10:55 Nitroglycerin Sl Tabs 0.4 Mg Tab SUBLINGUAL Q5M PRN Chest Pain Nitroglycerin 1 inch 11/25/21 12:00 11/26/21 05:29 Nitroglycerin Oint 1 Inch/Gm Packet TOPICAL 1 inch Q6HR MAE Administration Non-Formulary Medication 20 units 11/25/21 19:12 Insulin Aspart [Novolog Flexpen] SQ AC-TID PRN Blood Sugar - High Non-Formulary Medication 40 mg 11/26/21 11:15 Benazepril Hcl [Benazepril Hcl] PO DAILY [facility] Non-Formulary Medication 100 mg 11/27/21 09:00 Metoprolol Tartrate [Lopressor] PO DAILY [facility] Potassium Chloride 20 meq 11/25/21 21:00 11/26/21 08:54 Potassium Chloride Er 20 Meq Tab.Er PO 20 meq BID MAE Administration Intake and Output 11/25/21 11/26/21 11/26/21 22:59 06:59 14:59 Intake Total 120 0 Balance 120 0 Intake: Oral 120 0 Other: Voiding Method Toilet Toilet Toilet # Voids 1 1 11/25/21 08:44 11/25/21 08:44
[2021-11-26] MEDS ORDERED: amLODIPine 10 MG TAB PO SCH (11:30)
[2021-11-26] MEDS ORDERED: lisinopriL 20 MG TAB PO SCH (11:30)
[2021-11-26] MEDS ORDERED: CHLORTHALIDONE 25 MG TAB PO SCH (11:30)
[2021-11-26 12:05] LABS: Glucose,Whole Blood 127 mg/dL (75-99)
--- NOTE | 2021-11-26 13:43 | ECHOS ---
STRESS ECHOCARDIOGRAM INDICATIONS: Chest pain BASELINE HEART RATE: 73 BASELINE BLOOD PRESSURE: 148/80 MAXIMUM HEART RATE: 153 MAXIMUM BLOOD PRESSURE: 179/80 85% MPHR: 148 100% MPHR: 174 METS: 6.4 MAXIMUM STAGE REACHED: 2 TOTAL EXERCISE TIME: 4:45 CLINICAL INFORMATION: Baseline EKG revealed normal sinus rhythm with voltage criteria for LVH. Patient walked on a standard Ezio protocol for 4 minutes 45 seconds, achieved a maximal heart rate of 153 beats per minute, which is more than 85% of predicted maximal. She developed fatigue and shortness of breath but did not have any angina or arrhythmia. By EKG criteria, this is a negative stress test with limited exercise capacity. Baseline echo images revealed normal wall motion and wall thickening of all segments. At peak exercise there was good augmentation of left ventricular wall motion and wall thickening of all segments, suggesting that there is no evidence of any stress-induced ischemia on this study. FINAL IMPRESSION: 1. Limited exercise capacity with a negative stress test by EKG criteria. 2. Normal stress echocardiogram without evidence of ischemia. MMODL / IJN: [id number] /
[2021-11-26 14:56] VITALS: BP 170/81; PULSE 86; TEMP 97.8
--- NOTE | 2021-11-26 16:34 | DS ---
DISCHARGE SUMMARY DATE OF SERVICE: 11/26/2021 CHIEF COMPLAINT: Chest pain. HISTORY OF PRESENT ILLNESS AND PHYSICAL EXAMINATION: Details of this lady's history and physical can be found in the initial workup. LABORATORY STUDIES: While she was in the hospital, she had laboratory studies, details of which can be found in the laboratory section of her chart. COURSE IN THE HOSPITAL: After admission, she was placed on bedrest, started on intravenous fluids and she had serial EKGs and enzymes. The pain was was atypical. It was in the right chest. She stabilized and doing well. It was felt she could be discharged home and she will go home on her usual activity, diet, medications and will follow up in the office for further evaluation. FINAL DIAGNOSES: 1. Atypical right-sided chest pain. 2. Hypertension. 3. Diabetes. OPERATIONS: None. CONSULTATIONS: Cardiology. She is improved. REILLY / ORTIZ: [id number] /
--- NOTE | 2021-11-26 20:19 | HP ---
HISTORY AND PHYSICAL CHIEF COMPLAINT: Chest pain. HISTORY OF PRESENT ILLNESS: This is another admission for this 46-year-old female who has a history of insulin- dependent diabetes, hypertension and hyperlipidemia. She presented to the emergency room with pain in the right side of the chest. This was underneath the collar bone. She had a little bit of shortness of breath, but no cough, hemoptysis, diaphoresis, dizziness, nausea, etc. Studies in the ER were negative. REVIEW OF SYSTEMS: She has had no other complaints. She has had no swelling in either leg, history of pulmonary emboli, etc. She has had no urinary complaints, abdominal pain, etc. Past medical history, family history, and personal and social histories reveal she is NOT ALLERGIC TO ANYTHING. She uses an albuterol nebulizer for asthma and she is on NovoLog, montelukast, duloxetine, Toprol, aspirin, vitamin D, benazepril, atorvastatin, metformin, oxybutynin, chlorthalidone, amlodipine, Lantus, hydralazine, gabapentin. The remainder of her history is unremarkable. She has had a hysterectomy and cholecystectomy. She used to smoke but does not any longer. PHYSICAL EXAMINATION: Blood pressure is 132/98, pulse 76, respirations of 18, and she is afebrile. In general she appeared to be overweight, in no acute distress. Skin color was normal. Skin was warm and dry. Lymph nodes were not enlarged. Head, ears, eyes, nose, mouth and throat were normal. Neck veins not distended. Thyroid not enlarged. Chest was clear. Cardiac exam was normal. The abdomen was soft and nontender without any visceromegaly or masses. There was no tenderness in the chest wall anteriorly. Extremities were normal. Neurologically she is intact. She is admitted to the hospital with diagnoses: 1. Right anterior chest pain. 2. Hypertension. 3. Insulin-dependent diabetes. PLAN: 1. Bedrest. 2. IV fluids. 3. Serial EKGs and enzymes. 4. Cardiology consult. MMODL / IJN: [id number] /
[2021-11-26] MEDS ORDERED: ATORVASTATIN 80 MG TAB PO SCH (21:00)
[2021-11-27] MEDS ORDERED: METOPROLOL TARTRATE 50 MG TAB PO SCH (09:00)
[2021-11-27] MEDS ORDERED: ASPIRIN 81 MG PO SCH (09:00)
== END 2021-11-26 15:03 | disposition home or self-care (01) ==
LOC: EC 08:06 → 6NMEDSUR 10:57
PROVIDERS: ADMIT Family Medicine; ATTEND Family Medicine
DX: R07.89 Other chest pain (principal); I10 Essential (primary) hypertension; E78.5 Hyperlipidemia, unspecified; E11.42 Type 2 diabetes mellitus with diabetic polyneuropathy; I08.2 Rheumatic disorders of both aortic and tricuspid valves; J45.909 Unspecified asthma, uncomplicated; G43.909 Migraine, unspecified, not intractable, without status migrainosus; K44.9 Diaphragmatic hernia without obstruction or gangrene; M50.30 Other cervical disc degeneration, unspecified cervical region; M50.20 Other cervical disc displacement, unspecified cervical region; F32.A Depression, unspecified; F41.9 Anxiety disorder, unspecified; F17.200 Nicotine dependence, unspecified, uncomplicated; Z79.82 Long term (current) use of aspirin; Z79.4 Long term (current) use of insulin; Z79.84 Long term (current) use of oral hypoglycemic drugs; Z79.899 Other long term (current) drug therapy; Z86.73 Personal history of transient ischemic attack (TIA), and cerebral infarction without residual deficits; Z86.16 Personal history of COVID-19; Z87.440 Personal history of urinary (tract) infections; Z87.442 Personal history of urinary calculi; Z86.14 Personal history of Methicillin resistant Staphylococcus aureus infection; Z90.49 Acquired absence of other specified parts of digestive tract; Z90.710 Acquired absence of both cervix and uterus; Z98.891 History of uterine scar from previous surgery; Z98.890 Other specified postprocedural states; Z83.3 Family history of diabetes mellitus; Z82.5 Family history of asthma and other chronic lower respiratory diseases; Z80.9 Family history of malignant neoplasm, unspecified; Z80.1 Family history of malignant neoplasm of trachea, bronchus and lung
CPT/HCPCS: 99285; 36415; 93005; 93351; 85379; 80061; 80053; 83735; 84484; 85025; 85610; 85730; 71046; G0378 ×2

== ENCOUNTER 2023-05-09 22:06 | Emergency (ER) | payer OTHER ==
[2023-05-09 22:11] VITALS: TEMP 97.9
[2023-05-09] MEDS ORDERED: MORPHINE SULFATE 4 MG/ML SYRINGE IVP STA (22:29)
[2023-05-09] MEDS ORDERED: ONDANSETRON 4 MG/2 ML VIAL IVP STA (22:29)
[2023-05-09 23:03] LABS: Basophils % (A) 0 %; Eosinophils # (A) 0.2 k/uL (0-0.7); Eosinophils % (A) 3 %; HCT 38.9 % (34.0-46.0); HGB 13.4 gm/dL (11.4-16.0); Lymphocytes % (A) 41 %; MCH 29.9 pg (25.0-35.0); MCHC 34.4 g/dL (31.0-37.0); MCV 86.7 fL (80.0-100.0); Mean Platelet Volume 8.7; Monocytes # (A) 0.4 k/uL (0-1.0); Monocytes % (A) 4 %; Neutrophils % (A) 51 %; Platelet Count 197 k/uL (150-450); RBC 4.49 m/uL (3.80-5.40); RDW 13.2 % (11.5-15.5); WBC 9.8 k/uL (3.8-10.6)
[2023-05-09 23:13] LABS: ALT 31 U/L (4-34); AST 30 U/L (14-36); African American GFR (CKD) >90 (>60 ml/min/1.73 sqM); Albumin 4.3 g/dL (3.5-5.0); Alkaline Phosphatase 74 U/L (38-126); Anion Gap 7 mmol/L; Blood Urea Nitrogen 18 mg/dL (7-17); Calcium 9.3 mg/dL (8.4-10.2); Carbon Dioxide 25 mmol/L (22-30); Chloride 103 mmol/L (98-107); Glucose 147 mg/dL (74-99); Non-African American GFR(CKD) >90 (>60 ml/min/1.73 sqM); Sodium 135 mmol/L (137-145); Total Bilirubin 0.4 mg/dL (0.2-1.3); Total Protein 7.6 g/dL (6.3-8.2)
--- NOTE | 2023-05-09 23:39 | ED ---
Extremity Problem HPI - General Chief complaint: Extremity Problem,Nontraumatic Stated complaint: Left foot post op complications Time Seen by Provider: 05/09/23 22:21 Source: patient Mode of arrival: wheelchair Limitations: no limitations - History of Present Illness Initial comments: 48-year-old female presenting with chief complaint of postoperative pain. Patient had a nerve release done on 04/[address] Caro to the left leg She is complaining of increasing pain. She is taking Addis at home as well as gabapentin. She states that she has had some drainage from the incisions, from her description this drainage sound serous sanguinous. She admits to nausea from the pain, no vomiting. She has a follow-up appointment this coming Thursday. Fevers or chills. No erythema or induration. No chest pain, difficulty breathing, palpitations. - Related Data Home Medications Medication Instructions Recorded Confirmed ALPRAZolam [Xanax] 1 mg PO BID PRN 07/30/18 11/25/21 Albuterol Nebulized [Ventolin 2.5 mg INHALATION RT-QID PRN 11/25/21 11/25/21 Nebulized] Albuterol Sulfate [Proair Hfa] 2 puff INHALATION RT-QID PRN 11/25/21 11/25/21 Aspirin EC [Ecotrin Low Dose] 81 mg PO DAILY 11/25/21 11/25/21 Benazepril HCl 40 mg PO DAILY 11/25/21 11/25/21 Chlorthalidone 25 mg PO DAILY 11/25/21 11/25/21 DULoxetine HCL [Cymbalta] 60 mg PO DAILY 11/25/21 11/25/21 Ergocalciferol [Vitamin D2 (1250 1,250 mcg PO QMONTHLY 11/25/21 11/25/21 Mcg = 29486 Iu)] HYDROcodone/APAP 7.5-325MG [[place] 1 tab PO TID PRN 11/25/21 11/25/21 7.5-325] Ibuprofen [Motrin] 800 mg PO QID 11/25/21 11/25/21 Insulin Aspart [NovoLOG Flexpen] 20 units SQ AC-TID PRN 11/25/21 11/25/21 Insulin Glargine,Hum.rec.anlog 60 unit SQ HS 11/25/21 11/25/21 [Lantus Solostar Pen] Ipratropium Nebulized [Atrovent 0.5 mg INHALATION RT-QID PRN 11/25/21 11/25/21 Nebulized 0.2 MG/ML] Metoprolol Tartrate [Lopressor] 100 mg PO DAILY 11/25/21 11/25/21 Montelukast [Singulair] 10 mg PO HS 11/25/21 11/25/21 Oxybutynin Chloride [Ditropan XL] 5 mg PO BID 11/25/21 11/25/21 metFORMIN HCL 500 mg PO BID 11/25/21 11/25/21 Previous Rx's Medication Instructions Recorded Atorvastatin [Lipitor] 80 mg PO HS #30 tab 05/27/20 amLODIPine [Norvasc] 10 mg PO DAILY #30 tab 05/27/20 Ketorolac [Toradol] 10 mg PO Q6HR PRN #12 tab 05/09/23 Allergies Allergy/AdvReac Type Severity Reaction Status Date / Time No Known Allergies Allergy Verified 11/25/21 09:05 Review of Systems ROS Statement: Those systems with pertinent positive or pertinent negative responses have been documented in the HPI. ROS Other: All systems not noted in ROS Statement are negative. Past Medical History Past Medical History: Asthma, CVA/TIA, Hyperlipidemia, Hypertension Additional Past Medical History / Comment(s): 2011 "small stroke" no deficits, IDDM type II, neuropathy bilateral feet, UTI, urinary freqency, pancreatitis, migraines, cervical pain DDD/herniated discs, kidney stones, hiatal hernia, covid 08/2021. History of Any Multi-Drug Resistant Organisms: MRSA Date of last positivie culture/infection: 12/11/2008, MDRO Source:: Abd wall wound Past Surgical History: Section, Cholecystectomy, Hysterectomy Additional Past Surgical History / Comment(s): Kidney stent 16 yrs ago on left due to kidney stone, incision and drainage of abscess on abdomen on left side MRSA, Past Anesthesia/Blood Transfusion Reactions: No Reported Reaction Past Psychological History: Anxiety, Depression Smoking Status: Current every day smoker - Past Family History Mother Family Medical History: Cancer, COPD, Diabetes Mellitus Additional Family Medical History / Comment(s): Lung cancer. Father Family Medical History: Diabetes Mellitus General Exam Limitations: no limitations General appearance: alert, in no apparent distress Head exam: Present: atraumatic, normocephalic, normal inspection Eye exam: Present: normal appearance, EOMI Neck exam: Present: normal inspection, full ROM Respiratory exam: Absent: respiratory distress Left Lower Leg exam: Present: normal inspection, tenderness, swelling (Consistent with postop status). Absent: full ROM, ecchymosis, deformity, erythema Neurological exam: Present: alert, oriented X3, CN II-XII intact Psychiatric exam: Present: normal affect, normal mood Skin exam: Present: warm, dry, intact, normal color. Absent: rash Course Vital Signs 05/09/23 05/09/23 05/10/23 22:09 23:43 00:26 Temperature 97.9 F Pulse Rate 96 91 82 Respiratory 18 16 18 Rate Blood Pressure 190/108 169/105 144/94 O2 Sat by Pulse 98 96 98 Oximetry Medical Decision Making - Medical Decision Making Was pt. sent in by a medical professional or institution (, PA, GRAD[employer] 1 THRU 5 TEACHER, urgent care, hospital, or correction...) When possible be specific @ -No Did you speak to anyone other than the patient for history (EMS, parent, family, police, friend...)? What history was obtained from this source @ -No Did you review nursing and triage notes (agree or disagree)? Why? @ -I reviewed and agree with nursing and triage notes Were old charts reviewed (outside hosp., previous admission, EMS record, old EKG, old radiological studies, urgent care reports/EKG's, correction records)? Report findings @ -No old charts were reviewed Differential Diagnosis (chest pain, altered mental status, abdominal pain women, abdominal pain men, vaginal bleeding, weakness, fever, dyspnea, syncope, headache, dizziness, GI bleed, back pain, seizure, CVA, palpatations, mental health, musculoskeletal)? @ -Differential Musculoskeletal Muscular strain, contusion, ligament sprain, fracture, arthritis, septic arthritis, bursitis, cellulitis, muscle spasm, nerve compression, DVT, arterial occlusion, herpes zoster, electrolyte abnormality, tumor.... This is not meant to be in all inclusive list EKG interpreted by me (3pts min.). @ -As above X-rays interpreted by me (1pt min.). @ -None done CT interpreted by me (1pt min.). @ -None done U/S interpreted by me (1pt. min.). @ -None done What testing was considered but not performed or refused? (CT, X-rays, U/S, labs)? Why? @ -None What meds were considered but not given or refused? Why? @ -None Did you discuss the management of the patient with other professionals (professionals i.e. , PA, [employer] TEACHER, lab, RT, psych nurse, social work supervisor, wet end helper, teacher, project control officer, top case assembler)? Give summary @ -No Was smoking cessation discussed for >3mins.? @ -No Was critical care preformed (if so, how long)? @ -No Were there social determinants of health that impacted care today? How? (Homelessness, low income, unemployed, alcoholism, drug addiction, transportation, low edu. Level, literacy, decrease access to med. care, detention, re hab)? @ -No Was there de-escalation of care discussed even if they declined (Discuss DNR or withdrawal of care, Hospice)? DNR status @ -No What co-morbidities impacted this encounter? (DM, HTN, Smoking, COPD, CAD, Cancer, CVA, ARF, Chemo, Hep., AIDS, mental health diagnosis, sleep apnea, morbid obesity)? @ -None Was patient admitted / discharged? Hospital course, mention meds given and route, prescriptions, significant lab abnormalities, going to OR and other pertinent info. @ -48-year-old female presenting with chief complaint of pain to the left lower leg after surgery performed on 04/21. She is concerned because there was some drainage from the incision earlier today. Patient describes it as a orange- colored drainage, sounds consistent with serosanguineous fluid. There is some swelling consistent with postop status. Patient is taking Addis and gabapentin at home. Lab work shows no leukocytosis or anemia. She is neurovascularly intact. Patient will be provided with Toradol for home and instructed to continue with her other pain medications. Follow-up with surgeon at scheduled follow-up appointment this Thursday. Follow-up with PCP. Report back to ER with any new or worsening symptoms. Discussed return parameters and answered all questions. Patient conveyed verbal understanding and agreed to the plan. I discussed this case in detail with my attending Dr. Claros Undiagnosed new problem with uncertain prognosis? @ -No Drug Therapy requiring intensive monitoring for toxicity (Heparin, Nitro, Insulin, Cardizem)? @ -No Were any procedures done? @ -No Diagnosis/symptom? @ -Postoperative pain Acute, or Chronic, or Acute on Chronic? @ -Acute Uncomplicated (without systemic symptoms) or Complicated (systemic symptoms)? @ -Uncomplicated Side effects of treatment? @ -No Exacerbation, Progression, or Severe Exacerbation? @ -No Poses a threat to life or bodily function? How? (Chest pain, [place], [place], pneumonia, PE, COPD, DKA, ARF, appy, cholecystitis, CVA, Diverticulitis, Homicidal, Suicidal, threat to staff... and all critical care pts) @ -No - Lab Data Result diagrams: 05/09/23 22:52 05/09/23 22:52 Lab Results 05/09/23 05/09/23 05/09/23 Range/Units 22:52 22:52 22:52 WBC 9.8 (3.8-10.6) k/uL RBC 4.49 (3.80-5.40) m/uL Hgb 13.4 (11.4-16.0) gm/dL Hct 38.9 (34.0-46.0) % MCV 86.7 (80.0-100.0) fL MCH 29.9 (25.0-35.0) pg MCHC 34.4 (31.0-37.0) g/dL RDW 13.2 (11.5-15.5) % Plt Count 197 (150-450) k/uL MPV 8.7 Neutrophils % 51 % Lymphocytes % 41 % Monocytes % 4 % Eosinophils % 3 % Basophils % 0 % Neutrophils # 5.0 (1.3-7.7) k/uL Lymphocytes # 4.0 (1.0-4.8) k/uL Monocytes # 0.4 (0-1.0) k/uL Eosinophils # 0.2 (0-0.7) k/uL Basophils # 0.0 (0-0.2) k/uL Sodium 135 L (137-145) mmol/L Potassium 4.0 (3.5-5.1) mmol/L Chloride 103 (98-107) mmol/L Carbon Dioxide 25 (22-30) mmol/L Anion Gap 7 mmol/L BUN 18 H (7-17) mg/dL Creatinine 0.71 (0.52-1.04) mg/dL Est GFR (CKD-EPI)AfAm >90 (>60 ml/min/1.73 sqM) Est GFR (CKD-EPI)NonAf >90 (>60 ml/min/1.73 sqM) Glucose 147 H (74-99) mg/dL Plasma Lactic Acid Huy 1.6 (0.7-2.0) mmol/L Calcium 9.3 (8.4-10.2) mg/dL Total Bilirubin 0.4 (0.2-1.3) mg/dL AST 30 (14-36) U/L ALT 31 (4-34) U/L Alkaline Phosphatase 74 (38-126) U/L Total Protein 7.6 (6.3-8.2) g/dL Albumin 4.3 (3.5-5.0) g/dL Disposition Clinical Impression: Post-op pain Disposition: HOME SELF-CARE Condition: Good Instructions (If sedation given, give patient instructions): Pain Management After Surgery (DC) Additional Instructions: Follow-up with surgeon. Report back to ER with any new or worsening symptoms. Prescriptions: Ketorolac [Toradol] 10 mg PO Q6HR PRN #12 tab PRN Reason: Pain Is patient prescribed a controlled substance at d/c from ED?: No Referrals: Irvin Haile MD [Primary Care Provider] - 1-2 days Lars Caro DPM [STAFF PHYSICIAN] - 05/15/23 Time of Disposition: 23:38
[2023-05-10 00:27] VITALS: BP 144/94; PULSE 82; RESP 18
== END 2023-05-10 00:27 | disposition home or self-care (01) ==
LOC: EC 22:06
DX: G89.18 Other acute postprocedural pain (principal); J45.909 Unspecified asthma, uncomplicated; I10 Essential (primary) hypertension; F41.9 Anxiety disorder, unspecified; F32.A Depression, unspecified; F17.200 Nicotine dependence, unspecified, uncomplicated; Z79.82 Long term (current) use of aspirin; Z79.84 Long term (current) use of oral hypoglycemic drugs; Z79.899 Other long term (current) drug therapy; Z90.49 Acquired absence of other specified parts of digestive tract
CPT/HCPCS: 36415; 80053; 83605; 85025; 99283; 96374; 96375; J2270; J2405

== ENCOUNTER → 2023-10-26 | Outpatient (CLI) | payer OTHER ==
--- NOTE | 2023-10-28 08:25 | MM ---
Reason for Exam: Screening (asymptomatic). Last mammogram was performed 11 year(s) and 0 month(s) ago. Patient History: Menarche at age 13. First Full-Term at age 15. Right ovary removed at age 31. Hysterectomy at age 31. Risk Values: Dotty 5 year model risk: 0.7%. NCI Lifetime model risk: 6.7%. Prior Study Comparison: 11/12/2012 Bilateral Screening Mammogram, [facility]. Tissue Density: There are scattered fibroglandular densities. Findings: Analyzed By CAD. There is no suspicious group of microcalcifications or new suspicious mass. Asymmetries left breast lateral aspect on CC view upper aspect in MLO. No ON MLO view and anterior depth on CC view. Right breast: There is no suspicious group of microcalcifications or new suspicious mass. Overall Assessment: Incomplete: need additional imaging evaluation, BI-RAD 0 Management: Diagnostic Mammogram of the left breast. [facility] will attempt to contact patient to return for supplemental views and ultrasound if indicated. Patient should continue monthly self-breast exams. A clinical breast exam by your physician is recommended on an annual basis. This exam should not preclude additional follow-up of suspicious palpable abnormalities. Note on Dotty scores and lifetime risk: 1. A Dotty score greater than 3% is considered moderate risk. If this is the case, consider specialist referral to assess eligibility for a risk reducing agent. 2. If overall lifetime risk for the development of breast cancer is 20% or higher, the patient may qualify for future screening with alternating mammogram and breast MRI. Electronically signed and approved by: George Roa DO
== END | disposition home or self-care (01) ==
LOC: RADMAMWWP 14:30
PROVIDERS: ATTEND Family Medicine
DX: Z12.31 Encounter for screening mammogram for malignant neoplasm of breast (principal)
CPT/HCPCS: 77067

== ENCOUNTER → 2023-11-02 | Outpatient (CLI) | payer OTHER ==
--- NOTE | 2023-11-02 15:01 | MM ---
Reason for Exam: Additional evaluation requested from prior study. Last screening mammogram was performed less than 1 month ago. Patient History: Menarche at age 13. First Full-Term at age 15. Right ovary removed at age 31. Hysterectomy at age 31. Risk Values: Dotty 5 year model risk: 0.7%. NCI Lifetime model risk: 6.7%. Prior Study Comparison: 11/12/2012 Bilateral Screening Mammogram, [facility]. 10/26/2023 Bilateral MG screening mammo w CAD, [facility]. Tissue Density: Left: There are scattered fibroglandular densities. Findings: Analyzed By CAD. 7 mm low-density circumscribed nodularity 3 to 4:00 position anterior left breast persists on additional views. Further ultrasound evaluation is recommended. Overall Assessment: Incomplete: need additional imaging evaluation, BI-RAD 0 Management: Diagnostic Breast Ultrasound of the left breast. Electronically signed and approved by: Bob Crespo M.D. Radiologist
--- NOTE | 2023-11-02 15:19 | USB ---
Reason for Exam: Additional evaluation requested from abnormal screening. Patient History: Menarche at age 13. First Full-Term at age 15. Right ovary removed at age 31. Hysterectomy at age 31. Risk Values: Dotty 5 year model risk: 0.7%. NCI Lifetime model risk: 6.7%. Technique: Method: Targeted. Prior Study Comparison: 11/12/2012 Bilateral Screening Mammogram, [facility]. 10/26/2023 Bilateral MG screening mammo w CAD, [facility]. Findings: The lateral section of the breast of the left breast, the axilla of the left breast and the retroareolar of the left breast were scanned. Targeted ultrasound left breast 2-4 o'clock including scanning of the subareolar region and axilla. At the 2:00 position, 3 cm from the nipple, there is a 6 x 6 x 3 mm cyst cluster. At the 3:00 position, 3 cm from the nipple, there is a probable tiny 7 x 5 x 2 mm debris-filled cyst. Likely mammographic correlates. No other solid or cystic lesion or axillary lymphadenopathy. Overall Assessment: Probably benign, BI-RAD 3 Management: Diagnostic Mammogram of the left breast in 6 months. A clinical breast exam by your physician is recommended on an annual basis and results should be correlated with mammographic findings. This exam should not preclude additional follow-up of suspicious palpable abnormalities. Results were given to the patient verbally at the time of exam. Electronically signed and approved by: Bob Crespo M.D. Radiologist
== END | disposition home or self-care (01) ==
LOC: RADMAMWWP 14:32
PROVIDERS: ATTEND Family Medicine
DX: R92.322 Mammographic fibroglandular density, left breast (principal); R92.8 Other abnormal and inconclusive findings on diagnostic imaging of breast
CPT/HCPCS: 77065; 76642; G0279; 77061

== ENCOUNTER → 2024-10-18 | Outpatient (CLI) | payer OTHER ==
--- NOTE | 2024-10-18 13:36 | MM ---
Reason for Exam: Additional evaluation requested from prior study. Last screening mammogram was performed 11 month(s) ago. Patient History: Menarche at age 13. First Full-Term at age 15. Right ovary removed at age 31. Hysterectomy at age 31. Risk Values: Dotty 5 year model risk: 0.7%. NCI Lifetime model risk: 6.6%. Tissue Density: There are scattered areas of fibroglandular density. Findings: Analyzed By CAD. Areas of concern seen on prior within the left breast MLO view are less apparent on today's exam. This means of either either resolved or decreased significantly in size. No new masses, distortions or calcifications identified. Overall Assessment: Benign, BI-RAD 2 Management: Screening Mammogram of both breasts in 1 year. Results were given to the patient verbally at the time of exam. Patient should continue monthly self-breast exams. A clinical breast exam by your physician is recommended on an annual basis. This exam should not preclude additional follow-up of suspicious palpable abnormalities. Note on Dotty scores and lifetime risk: 1. A Dotty score greater than 3% is considered moderate risk. If this is the case, consider specialist referral to assess eligibility for a risk reducing agent. 2. If overall lifetime risk for the development of breast cancer is 20% or higher, the patient may qualify for future screening with alternating mammogram and breast MRI. [facility], , 10/18/2024 1:26 PM. Electronically signed and approved by: George Roa DO
== END | disposition home or self-care (01) ==
LOC: RADMAMWWP 13:08
PROVIDERS: ATTEND Family Medicine
DX: R92.8 Other abnormal and inconclusive findings on diagnostic imaging of breast (principal); R92.323 Mammographic fibroglandular density, bilateral breasts; R92.2 Inconclusive mammogram
CPT/HCPCS: 77066; G0279; 77062